=== PATIENT | male | born 1975 | race African-American/Black ===

== ENCOUNTER 2019-09-17 18:15 | IRF | payer BC, SELFPAY ==
--- NOTE | ~2019-09-17 | XR_ITS ---
EXAMINATION: XR barium swallow modified DATE: 09/21/2019 13:43 INDICATION: Dysphagia. TECHNIQUE: The patient was given barium-containing material of multiple consistencies to swallow by rosita tao speech pathologist while I performed fluoroscopy. Dose-area product was 1.438 Gy-cm2. 1.0 minutes fluoroscopy time FINDINGS: Oral Preparatory Stage: Leakage from mouth, delayed swallowing Oral Stage: Delayed retention in the valleculae Pharyngeal Phase: Aspiration with 2 initial trials of small amount of clear thin liquids; examinatio n was terminated. Cervical/Esophageal Stage: No abnormality noted IMPRESSION: Modified esophagram findings as above. Please refer to the speech [facility] report [facility]. Reviewed, dictated and finalized at Location [facility]. Reviewed, dictated and finalized at location A. IMPRESSION: Modified esophagram findings as above. Please refer to the speech t herapy report for specific recommendations.
--- NOTE | ~2019-09-17 | MR_ITS ---
EXAMINATION: MR brain/brain stem wo con EXAM DATE: 09/22/2019 12:10 INDICATION: Stroke. Dysphagia, dysarthria. TECHNIQUE: Magnetic resonance imaging (MRI) of the brain/brain stem obtained without contrast. Sagitt al T1, axial diffusion, gradient echo (T2*), T1, T2, FLAIR sequences obtained. There is no prior st udy for comparison. FINDINGS: There is moderate-sized infarction in the right cerebellar lobe, right brachium pontis and right side of the leo, with some edema, and also small region of enhancement. Overall appearance is most consistent with subacute age. There are approximately a dozen punctate scattered bilateral periventricular white matter foci of res tricted diffusion, likely varying acute to subacute ages from embolic source. There are multiple scattered periventricular and subcortical T2 hyperintensities, a non-specific find ing with differential diagnosis including premature chronic small vessel ischemic disease (especially if the patient has cardiovascular risk factors), migraine headaches, demyelinating disease such as m ultiple sclerosis or acute disseminated encephalomyelitis (ADEM), vasculopathy, lyme's disease or stanley ctive astrocytosis (gliosis) secondary to nonspecific etiology. No brain mass. No obstructive hydrocephalus, extra-axial collections or acute intracranial hemorrhage . Small right maxillary sinus mucous retention cyst. Right-sided Phthisis bulbi. IMPRESSION: 1. Moderate-sized right cerebellar, brachium pontis, leo subacute infarction. 2. Approximately a dozen scattered periventricular acute infarctions likely embolic source. 3. Moderate nonspecific periventricular white matter disease. Reviewed, dictated and finalized at location . IMPRESSION: 1. Moderate-sized right cerebellar, brachium pontis, leo subacute infarction. 2. Approximately a dozen scattered periventricular acute infarctions likely em bolic source. 3. Moderate nonspecific periventricular white matter disease.
--- NOTE | ~2019-09-17 | XR_ITS ---
XR fl Dobhoff insert/rad w img INDICATION: Physician placement of feeding tube TECHNIQUE: Fluoroscopy performed for placement of feeding tube . 0.5 minutes of fluoroscopy. DAP is 6 .3. 1 fluoroscopic image. COMPARISON: No prior studies for comparison. FINDINGS: Feeding feeding tube tip in the stomach following placement by fluoroscopy. Visualized bow el gas pattern is unremarkable. Impression: 1:Feeding tube tip in the stomach. Reviewed, dictated and finalized at location A. Impression: 1:Feeding tube tip in the stomach.
--- NOTE | 2019-09-17 18:19 | PC.NURSE ---
This patient, [place], was admitted to [facility] Room 219-01. Patient/family oriented to hospital policies and general routines including ID bracelet, bed and alarms, visiting hours, pain management, procedures, bathroom and other care routines, personal items, smoking policy, room service/diet, and visiting hours. Valuables list has been completed. Information on how to activate the Rapid Response Team has been discussed. Patient/Family are encouraged to report perceived risks to care and to ask questions if they do not understand what they are told or what they should do.
[2019-09-17 18:20] VITALS: BP 96/67; PULSE 50; RESP 16; TEMP 37.2; O2SAT 96; BMI 38.8
[2019-09-17] MEDS: INSULIN GLARGINE (*BKC) 100 UNITS/ML 24 UNITS SUB-Q (20:50)
[2019-09-17] MEDS: ATORVASTATIN 40 MG TABLET 80 MG PO (20:53)
[2019-09-17 21:13] VITALS: BP 118/72; PULSE 72; RESP 20; TEMP 36.7; O2SAT 98
[2019-09-17 21:23] LABS: Glucose Point of Care 256 (65-105)
[2019-09-18] VITALS (8 sets, daily range): BP systolic 93–152; BP diastolic 53–81; PULSE 50–81; RESP 16–20; TEMP 36.2–37.2; O2SAT 96–100; BMI 38.8
[2019-09-18 04:39] LABS: Basophils Percent Auto 0.3 % (0.2-1.2); Eosinophils Absolute Auto 0.1 K/mm3 (0-0.3); Eosinophils Percent Auto 0.7 % (0-4.4); Hematocrit 48.3 % (42.0-52.0); Hemoglobin 15.6 g/dL (14.0-18.0); Immature Granulocyte Absolute 0.01 K/mm3 (0.00-0.031); Immature Granulocyte Percent A 0.1 % (0-0.5); Lymphocytes Percent Auto 33.3 % (18.3-44.2); Mean Corpuscular HGB Conc 32.3 g/dl (32-36); Mean Corpuscular Hemoglobin 26.5 pg (26-34); Mean Corpuscular Volume 82.1 fl (80-100); Mean Platelet Volume 11.4 fl (7.4-10.4); Monocytes Absolute Auto 0.5 K/mm3 (0.1-0.6); Monocytes Percent Auto 6.8 % (2.6-8.5); Neutrophils Absolute Auto 4.1 K/mm3 (1.3-6.7); Neutrophils Percent Auto 58.8 % (45.5-73.1); Platelet Count Result 198 k/mm3 (150-375); Red Blood Count 5.88 M/mm3 (4.6-6.20); Red Cell Distribution Width 13.2 % (11.5-14.5); White Blood Count 6.9 K/mm3 (4.5-10.0)
[2019-09-18 04:47] LABS: Hemoglobin A1C 12.6 % (<5.7)
[2019-09-18 04:52] LABS: Blood Urea Nitrogen 24 mg/dL (9-20); Calcium 9.3 mg/dL (8.4-10.2); Carbon Dioxide 32 mmol/L (22-30); Chloride 99 mmol/L (98-107); Cholesterol 128 mg/dL (0-200); Estimated CRCL calculation 78 ml/min; Estimated Glomerular Filt Rate > 60; Glucose 171 mg/dL (75-110); HDL Direct 22 mg/dL; Potassium 4.3 mmol/L (3.4-5.0); Sodium 137 mmol/L (137-145); Triglycerides 91 mg/dL (<150)
[2019-09-18 05:02] LABS: LDL Cholesterol Direct 87 mg/dL
[2019-09-18 07:07] LABS: Glucose Point of Care 200 (65-105)
--- NOTE | 2019-09-18 08:00 | WPDREHABHP ---
H&P: HPI History of Present Illness Chief complaint: CVA Narrative: [place] is a 44 year old male HISTORY OF PRESENT ILLNESS: The patient's primary rehab impairment category is acute infarct in the right cerebellar hemisphere and the right dorsal leo The etiologic diagnosis is the above is a due to stroke that is the primary rehab category I saw this patient [id number] on September 18, 2019 at 8:00 a.m. 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 The patient last known. Of well-being was 7:00 p.m.. NIHSS upon arrival was 2 for ataxia and facial droop. CT of the head showed no bleed tPA was not given due to mild non disabling symptoms. Thrombectomy was not considered due to no LV 0. The patient was given aspirin 325 milligram and transferred to [facility]. On arrival to [facility] NIHSS was still 2. CTA showed 70% stenosis of the right internal carotid artery at the level of C3 and the left vertebral artery as well. Neurology was consulted and order an MRI of the brain and cerebral angio. This started on aspirin atorvastatin. MRI revealed acute infarcts in the right cerebellar hemisphere in the PICA territory and punctate focus in the right dorsal leo. Transthoracic echocardiogram showed severe hypertrophic and possibly ischemic cardiomyopathy with FX of chronic severe hypertension. There were no clots of shunts. Ejection fraction was 64%. His hemoglobin A1c was 12.2 and he was started on Lantus 17 use at bedtime. He passes swallowing studies are not regular consistency cardiac diet physical examination confused to reveal impaired gross motor control dysarthria facial droop and impaired balance. The patient will be discharged to us on subcutaneous heparin for DVT prophylaxis. He is alert and oriented x4 as I see it in the chart from the referring hospital the patient is not on subcutaneous heparin but he is on aspirin and Plavix the patient has not traveled outside the [place] or had contact with someone who is ill that has travel outside the [place] in the past 21 days. Patient has not travel to an area of the [place] that is experiencing no transmission of the Coronavirus has not had close personal contact with anyone that has. The patient does not have fever does not have any respiratory symptoms. The patient does not have any fever chills sore throat cough or shortness of breath Therapy was initiated at the acute care facility and the patient transferred to us from [facility] on September 18, 2019 FALLS OR SURGERIES: The patient has had no major surgeries in the 100 days prior to admission. They had falls in the past year. They had falls with injury in the past year. PAST MEDICAL HISTORY: diabetes with peripheral neuropathy, probably diabetic retinopathy responsible for the blindness he may or may not recall traumatic injury but that is for the screening say is but he feels that it was due to stroke most likely related to diabetes hypertension PAST SURGICAL HISTORY: no significant past surgical history SOCIAL HISTORY: patient lives with his well significant other and son in a 1 level home with the level entry he was completely independent and driving prior. Use no assistive device. He has help at home if needed following rehab. He reported no falls within the past 6 months and no major surgery. He is a current every day smoker. Occasional alcohol use. No drug abuse. FAMILY HISTORY: Family history is quite positive for the stroke by many close family members as the patient best recall PRIOR LEVEL OF FUNCTION: Eating was INDEPENDENT Oral Care was INDEPENDENT Toileting Hygiene was INDEPEN
[2019-09-18] MEDS: metFORMIN HCL 500 MG TABLET PO ×2 (09:43→18:24)
[2019-09-18] MEDS: INSULIN ASPART (*BKC) 100 UNITS/ML 6 UNITS SUB-Q (09:43)
[2019-09-18] MEDS: ASPIRIN 81 MG CHEWABLE TABLET PO (10:16)
[2019-09-18] MEDS: CLOPIDOGREL BISULFATE 75 MG TABLET PO (10:17)
[2019-09-18] MEDS: hydroCHLOROthiazide 25 MG TABLET 50 MG PO (10:17)
[2019-09-18] MEDS: carvediloL 25 MG TABLET PO ×2 (10:17→18:22)
[2019-09-18] MEDS: AMLODIPINE BESYLATE 5 MG TABLET 10 MG PO (10:18)
[2019-09-18] MEDS: lisinopriL 20 MG TABLET 40 MG PO (10:19)
[2019-09-18] MEDS: NAPROXEN 500 MG TABLET PO ×2 (12:29→18:24)
[2019-09-18] MEDS: INSULIN ASPART (*BKC) 100 UNITS/ML 8 UNITS SUB-Q ×2 (12:34→18:22)
[2019-09-18 12:40] LABS: Glucose Point of Care 198 (65-105)
--- NOTE | 2019-09-18 16:36 | RPD ---
INDIVIDUALIZED PLAN OF CARE FOR [place] Brief Synthesis of Pre-Admission Screen, Post-Admission Evaluation and Therapy Evaluations: The patient presents to rehab with acute infarcts in the right cerebellar hemisphere and right dorsal leo. Comorbidities include diabetes mellitus with hyperglycemia, uncontrolled hypertension, traumatic injury right eye, tobacco abuse, cardiomyopathy, right facial droop, dysarthria, and gait instability.The patient requires physician services for neurology services, medical oversight, and coordination of care. The patient requires nursing services for frequent neuro checks, anticoagulation therapy, medication management and education, pressure relief and skin care management, monitoring of labs, diabetes management and education, and fall/safety precautions. Deficits include:ADLs, Balance, Endurance, Family Training/Education, Mobility, Pain Management, ROM, Safety, Speech, Strength, and Transfers Social Media Marketer/Case Management for: Discharge Planning and Patient/Family Counseling Physical Therapy: 5 days per week for 75 minutes. Treatments may include: Therapeutic Exercise, Gait Training, Neuromuscular Re-education, Transfer Training, Community Reintegration, Bed Mobility, Patient/Family Education, Wheelchair Mobility Group Therapy/Concurrent Therapy Rationales: -Improve attention span during functional activities in a distracted environment. -Enhance problem solving and/or adequate judgment skills during functional activities in a distracted environment. -Promote increased safety awareness in a distracted environment to reduce fall risk with functional tasks, transfers, and ambulation to allow a more safe, self-sufficient return to the home environment. -Improve dynamic balance skills to promote safety and independence with functional activities in a distracted environment for maximum gain. Occupational Therapy: 5 days per week for 75 minutes. Treatments may include: Therapeutic Exercise, Therapeutic Activity, Cognitive Training, Self-Care Transfer Training, Community Reintegration, Home Management, Patient/Family Education, Wheelchair Mobility Training, Energy Conservation Training Group Therapy/Concurrent Therapy Rationales: -Allow therapist to observe and teach generalization and carry-over of skills learned in individual therapy. -Enhance problem solving and sequencing skills during therapeutic activities in a distracted environment. -Promote increased safety awareness in a realistic setting to reduce fall risk with functional tasks due to visual and verbal distractions. -Increase functional level with ADLs, ADL transfers and use of adaptive equipment through therapeutic activities with others while promoting safety to allow a more safe, self-sufficient return home. Speech Therapy: 5 days per week for 30 minutes. Treatments may include: Dysphasia Therapy, Speech/Language/Communication Therapy, Cognitive Training, Patient/Family Education Group Therapy/Concurrent Therapy - Rationale: -Allow therapist to observe and teach generalization and carry-over of skills learned in individual therapy. -Improve comprehension skills with complex or abstract ideas through discussion in a realistic setting. -Enhance problem solving skills with complex issues during activities in a distracted environment. -Promote increased memory skills and concentration in a distracted environment for a safe transition home. -Improve attention and focus with language/communication skills in a realistic and supportive therapeutic setting. -Allow for practice of expression of basic needs and ideas through functional activities with others. Medical Prognosis: Good Anticipated Length of Stay: 10 days Rehab Goals: Eating Goal: 06-Independent Oral Hygiene Goal: 06-Independent Toileting Hygiene Goal: 06-Independent Shower/Bathe Self Goal: 06-Independent Upper Body Dressing Goal: 06-Independent Lower Body Dressing Goal: 06-Independent Putting O
[2019-09-18 18:12] LABS: Glucose Point of Care 133 (65-105)
[2019-09-18 21:28] LABS: Glucose Point of Care 173 (65-105)
[2019-09-18] MEDS: INSULIN GLARGINE (*BKC) 100 UNITS/ML 24 UNITS SUB-Q (21:30)
[2019-09-18] MEDS: ATORVASTATIN 40 MG TABLET 80 MG PO (21:30)
[2019-09-19 06:00] VITALS: BP 106/61; PULSE 69; RESP 16; TEMP 36.4; O2SAT 99
[2019-09-19 06:48] LABS: Glucose Point of Care 126 (65-105)
[2019-09-19] MEDS: metFORMIN HCL 500 MG TABLET PO ×2 (09:09→17:37)
[2019-09-19] MEDS: NAPROXEN 500 MG TABLET PO ×2 (09:09→17:37)
[2019-09-19] MEDS: AMLODIPINE BESYLATE 5 MG TABLET 10 MG PO (09:09)
[2019-09-19 09:10] VITALS: PULSE 69
[2019-09-19] MEDS: CLOPIDOGREL BISULFATE 75 MG TABLET PO (09:10)
[2019-09-19] MEDS: carvediloL 25 MG TABLET PO ×2 (09:10→17:38)
[2019-09-19] MEDS: lisinopriL 20 MG TABLET 40 MG PO (09:10)
[2019-09-19] MEDS: hydroCHLOROthiazide 25 MG TABLET 50 MG PO (09:10)
[2019-09-19] MEDS: ASPIRIN 81 MG CHEWABLE TABLET PO (09:10)
[2019-09-19] MEDS: INSULIN ASPART (*BKC) 100 UNITS/ML 6 UNITS SUB-Q (09:11)
--- NOTE | 2019-09-19 12:06 | WPDNEURORHBP ---
Subjective Date/time seen: 09/19/19 12:06 Interval history: l this 44-year-old the Afro-Spanish gentleman who is a diabetic hypertensive is here after having had cerebellar and pontine stroke with crossed neurological signs of right-sided facial weakness right-sided cerebellar deficits/ataxia and left-sided khushboo sensory deficit also subtle but present left-sided weakness this morning he was a little groggy and tired as he was unable to sleep last night I do not see and significant change apart from being groggy and sleepy which is due to the fact he was unable to sleep well he denies any headache nausea vomiting chest pain shortness of breath fever chills or sore throat his blood pressures are on the soft side I need to discontinue 1 of his medication and take amlodipine at this point Review of Systems Review of Systems: All systems reviewed & are unremarkable except as noted in HPI and below Functional Status Ambulation Ability Ability to Ambulate 10 Feet: Moderate Assistance X 1 Ambulation Assistive Devices: Walker, Wheeled Transfers Ability Ability to Transfer In/Out of Chair: Moderate Assistance X 1 Exam Const: General: comfortable and no acute distress HENMT: General nose exam: Normal nares present Mouth: Yes moist mucous membranes Eyes: General: appearance normal, both eyes and all related structures Other: right-sided blindness related to his underlying diabetes for quite some time Neck: Neck: supple and no JVD Resp: Effort & Inspection: normal respiratory effort Auscultation: clear to auscultation bilaterally Cardio: Rate: regular rate Rhythm: regular rhythm GI: GI Palp: Yes Soft to palpation Auscultation: normal bowel sounds Skin: General skin exam: normal color and no rashes or lesions noted Neuro: Other: patient is little sleepy and tired little dysarthric however I do not see significant change from his neurological status standpoint still continues to have right-sided facial weakness right-sided cerebellar ataxia and left-sided sensory deficit with evidence of peripheral neuropathy Extrem: General: normal to inspection Psych: Mental Status: mental status grossly normal Objective Data Vital Signs Vital Signs: Vital Signs - 24 hr 09/18/19 14:00 09/18/19 18:22 09/18/19 21:01 Temperature 36.2 C L 36.3 C L Pulse Rate 74 72 70 Respiratory Rate 18 20 Blood Pressure 98/66 L 93/53 L Pulse Oximetry 100 98 09/19/19 06:00 09/19/19 09:10 Temperature 36.4 C L Pulse Rate 69 69 Respiratory Rate 16 Blood Pressure 106/61 Pulse Oximetry 99 Intake/Output Intake/Output: Intake & Output 09/16/19 09/17/19 09/18/19 09/19/19 23:59 23:59 23:59 23:59 Intake Total 840 240 Balance 840 240 Meds/Results Medications: Active Medications Generic Name Dose Route Start Last Admin Trade Name Freq PRN Reason Stop Dose Admin Amlodipine Besylate 10 mg 09/18/19 09:00 09/19/19 09:09 Norvasc PO 10 mg DAILY ELI Administration Aspirin 81 mg 09/18/19 09:00 09/19/19 09:10 Aspirin Chewable PO 81 mg DAILY ELI Administration Atorvastatin Calcium 80 mg 09/17/19 21:00 09/18/19 21:30 Lipitor PO 80 mg HS ELI Administration Carvedilol 25 mg 09/18/19 09:00 09/19/19 09:10 Coreg PO 25 mg BID ELI Administration Clopidogrel Bisulfate 75 mg 09/18/19 09:00 09/19/19 09:10 Plavix PO 75 mg DAILY ELI Administration Cyclobenzaprine HCl 10 mg 09/17/19 18:46 Flexeril PO TID PRN Muscle Spasm Dextrose 12.5 gm 09/17/19 18:48 Dextrose 50% Syringe IV PUSH PRN PRN Hypoglycemia Protocol Glucagon 1 mg 09/17/19 18:48 Glucagon For Inj IM PRN PRN Hypoglycemia Protocol Glucose 15 gm 09/17/19 18:48 Glutose 15 PO PRN PRN Hypoglycemia Protocol Hydrochlorothiazide 50 mg 09/18/19 09:00 09/19/19 09:10 Hydrochlorothiazide PO 50 mg DAILY ELI Administration Dextrose 1,000 mls @ 1
[2019-09-19 12:13] LABS: Glucose Point of Care 136 (65-105)
[2019-09-19 14:00] VITALS: BP 95/57; PULSE 69; RESP 18; TEMP 36.1; O2SAT 100
[2019-09-19 17:12] LABS: Glucose Point of Care 142 (65-105)
[2019-09-19 17:38] VITALS: PULSE 69
[2019-09-19 21:20] LABS: Glucose Point of Care 124 (65-105)
[2019-09-19] MEDS: ATORVASTATIN 40 MG TABLET 80 MG PO (21:45)
[2019-09-19] MEDS: INSULIN GLARGINE (*BKC) 100 UNITS/ML 24 UNITS SUB-Q (21:45)
[2019-09-19 22:00] VITALS: BP 123/70; PULSE 62; RESP 18; TEMP 36.1; O2SAT 94
[2019-09-20 06:00] VITALS: BP 106/59; PULSE 76; RESP 18; TEMP 36.4; O2SAT 97
[2019-09-20 06:51] LABS: Glucose Point of Care 94 (65-105)
--- NOTE | 2019-09-20 08:03 | PC.NURSE ---
Dr Suarez notified of xray results done 09/18. Message left at office with Carmela.
[2019-09-20] MEDS: metFORMIN HCL 500 MG TABLET PO ×2 (10:29→18:21)
[2019-09-20 10:30] VITALS: PULSE 76
[2019-09-20] MEDS: carvediloL 25 MG TABLET PO ×2 (10:30→18:21)
[2019-09-20] MEDS: ASPIRIN 81 MG CHEWABLE TABLET PO (10:30)
[2019-09-20] MEDS: NAPROXEN 500 MG TABLET PO ×2 (10:30→18:22)
[2019-09-20] MEDS: lisinopriL 20 MG TABLET 40 MG PO (10:30)
[2019-09-20] MEDS: CLOPIDOGREL BISULFATE 75 MG TABLET PO (10:30)
[2019-09-20] MEDS: hydroCHLOROthiazide 25 MG TABLET 50 MG PO (10:30)
--- NOTE | 2019-09-20 11:11 | WPDNEURORHBP ---
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 is here post stroke at the brainstem level with the right-sided facial weakness right-sided cerebellar ataxia and left-sided sensory much more so than the motor weakness he is more alert today and denies any headache nausea vomiting chest pain shortness of breath engage in therapy better than yesterday Review of Systems Review of Systems: All systems reviewed & are unremarkable except as noted in HPI and below Functional Status Ambulation Ability Ability to Ambulate 10 Feet: Moderate Assistance X 1 Ambulation Assistive Devices: Walker, Wheeled Transfers Ability Ability to Transfer In/Out of Chair: Moderate Assistance X 1 Exam Const: General: comfortable and no acute distress HENMT: General nose exam: Normal nares present Mouth: Yes moist mucous membranes Eyes: General: appearance normal, both eyes and all related structures Other: right-sided blindness and corneal opacity for long duration of time related to diabetic retinopathy Neck: Neck: supple and no JVD Resp: Effort & Inspection: normal respiratory effort Auscultation: clear to auscultation bilaterally Cardio: Rate: regular rate Rhythm: regular rhythm GI: GI Palp: Yes Soft to palpation Auscultation: normal bowel sounds Skin: General skin exam: normal color and no rashes or lesions noted Neuro: Other: patient is a relatively more alert today not any distress neurological signs are improving slowly no worsening for sure Extrem: General: normal to inspection Psych: Mental Status: mental status grossly normal Objective Data Vital Signs Vital Signs: Vital Signs - 24 hr 09/19/19 14:00 09/19/19 17:38 09/19/19 22:00 Temperature 36.1 C L 36.1 C L Pulse Rate 69 69 62 Respiratory Rate 18 18 Blood Pressure 95/57 L 123/70 Pulse Oximetry 100 94 09/20/19 06:00 09/20/19 10:30 Temperature 36.4 C Pulse Rate 76 76 Respiratory Rate 18 Blood Pressure 106/59 L Pulse Oximetry 97 Intake/Output Intake/Output: Intake & Output 09/17/19 09/18/19 09/19/19 09/20/19 23:59 23:59 23:59 23:59 Intake Total 840 600 120 Balance 840 600 120 Meds/Results Medications: Active Medications Generic Name Dose Route Start Last Admin Trade Name Freq PRN Reason Stop Dose Admin Aspirin 81 mg 09/18/19 09:00 09/20/19 10:30 Aspirin Chewable PO 81 mg DAILY ELI Administration Atorvastatin Calcium 80 mg 09/17/19 21:00 09/19/19 21:45 Lipitor PO 80 mg HS ELI Administration Carvedilol 25 mg 09/18/19 09:00 09/20/19 10:30 Coreg PO 25 mg BID ELI Administration Clopidogrel Bisulfate 75 mg 09/18/19 09:00 09/20/19 10:30 Plavix PO 75 mg DAILY ELI Administration Cyclobenzaprine HCl 10 mg 09/17/19 18:46 Flexeril PO TID PRN Muscle Spasm Dextrose 12.5 gm 09/17/19 18:48 Dextrose 50% Syringe IV PUSH PRN PRN Hypoglycemia Protocol Glucagon 1 mg 09/17/19 18:48 Glucagon For Inj IM PRN PRN Hypoglycemia Protocol Glucose 15 gm 09/17/19 18:48 Glutose 15 PO PRN PRN Hypoglycemia Protocol Hydrochlorothiazide 50 mg 09/18/19 09:00 09/20/19 10:30 Hydrochlorothiazide PO 50 mg DAILY ELI Administration Dextrose 1,000 mls @ 100 mls/hr 09/17/19 18:48 Dextrose 5% 1,000 Ml IVPB PRN PRN Hypoglycemia Protocol Insulin Aspart 6 units 09/18/19 08:00 09/20/19 10:29 Novolog SUB-Q Not Given 0800 [facility] Insulin Aspart 8 units 09/18/19 12:00 09/19/19 21:23 Novolog SUB-Q Not Given 1200,1700 [facility] Insulin Glargine 24 units 09/17/19 21:00 09/19/19 21:45 Lantus SUB-Q 24 units HS ELI Administration Lisinopril 40 mg 09/18/19 09:00 09/20/19 10:30 Prinivil PO 40 mg DAILY ELI Administration Metformin HCl 500 mg 09/18/19 08:00 09/20/19 10:29 Glucophage PO 500 mg BIDWM ELI Administration Napr
[2019-09-20 13:42] LABS: Glucose Point of Care 88 (65-105)
[2019-09-20 14:00] VITALS: BP 119/70; PULSE 70; RESP 20; TEMP 36.4; O2SAT 98
[2019-09-20 17:00] LABS: Glucose Point of Care 118 (65-105)
[2019-09-20 18:21] VITALS: PULSE 70
--- NOTE | 2019-09-20 18:28 | PC.NURSE ---
Switched diet to minced and moist. Had spoke to speech earlier and was going to speak to him about it. Having a lot of trouble eating due to his severe facial/mouth droop with regular consistencies. He has ate very little today and held his insulins as well due to 80's-116. Dr. Cam notified. Patient very aware and frustrated and was OK with diet change. Will continue to monitor.
[2019-09-20] MEDS: ATORVASTATIN 40 MG TABLET 80 MG PO (20:04)
[2019-09-20 21:56] LABS: Glucose Point of Care 113 (65-105)
[2019-09-20 22:00] VITALS: BP 108/65; PULSE 73; RESP 18; TEMP 36.3; O2SAT 90
[2019-09-21 06:00] VITALS: BP 118/60; PULSE 69; RESP 18; TEMP 36.6; O2SAT 98
[2019-09-21 07:04] LABS: Glucose Point of Care 92 (65-105)
[2019-09-21 08:00] VITALS: PULSE 69; RESP 18; O2SAT 98
[2019-09-21] MEDS: metFORMIN HCL 500 MG TABLET PO (08:30)
[2019-09-21] MEDS: lisinopriL 20 MG TABLET 40 MG PO (08:31)
[2019-09-21] MEDS: NAPROXEN 500 MG TABLET PO (08:31)
[2019-09-21] MEDS: hydroCHLOROthiazide 25 MG TABLET 50 MG PO (08:31)
[2019-09-21] MEDS: ASPIRIN 81 MG CHEWABLE TABLET PO (08:31)
[2019-09-21] MEDS: CLOPIDOGREL BISULFATE 75 MG TABLET PO (08:31)
[2019-09-21] MEDS: carvediloL 25 MG TABLET PO (10:46)
[2019-09-21 11:07] LABS: Glucose Point of Care 113 (65-105)
[2019-09-21 14:00] VITALS: BP 119/60; PULSE 70; RESP 18; TEMP 36.3; O2SAT 98
--- NOTE | 2019-09-21 14:11 | WPDNEURORHBP ---
Subjective Date/time seen: 09/21/19 14:11 Interval history: patient seems to be depressed and upset and has difficulty swallowing he is here after having had the brainstem stroke with crossed neurological signs is going to have a modified barium swallow to make sure that he is not aspirating he will need some antidepressant at this point he denies any headache nausea vomiting chest pain shortness of breath fever chills sore throat and remains awake and alert Review of Systems Review of Systems: All systems reviewed & are unremarkable except as noted in HPI and below Functional Status Ambulation Ability Ability to Ambulate 10 Feet: Minimum Assistance X 1 Ability to Ambulate 50 Feet With 2 Turns: Minimum Assistance X 1 Ambulation Assistive Devices: Walker, Wheeled Transfers Ability Ability to Transfer In/Out of Chair: Minimum Assistance X 1 Exam Const: General: comfortable and no acute distress HENMT: General nose exam: Normal nares present Mouth: Yes moist mucous membranes Eyes: General: appearance normal, both eyes and all related structures Neck: Neck: supple and no JVD Resp: Effort & Inspection: normal respiratory effort Auscultation: clear to auscultation bilaterally Cardio: Rate: regular rate Rhythm: regular rhythm GI: GI Palp: Yes Soft to palpation Auscultation: normal bowel sounds Skin: General skin exam: normal color and no rashes or lesions noted Neuro: Other: he is awake and alert will oriented time place person seems to be depressed does have right-sided facial weakness and moderately severe left-sided hemiparesis Extrem: General: normal to inspection Psych: Other: apart from depressed and also frustrated the patient's overall mental status is within the normal range Objective Data Vital Signs Vital Signs: Vital Signs - 24 hr 09/20/19 18:21 09/20/19 22:00 09/21/19 06:00 Temperature 36.3 C L 36.6 C Pulse Rate 70 73 69 Respiratory Rate 18 18 Blood Pressure 108/65 118/60 Pulse Oximetry 90 98 09/21/19 08:00 Temperature Pulse Rate 69 Respiratory Rate 18 Blood Pressure Pulse Oximetry 98 Intake/Output Intake/Output: Intake & Output 09/18/19 09/19/19 09/20/19 09/21/19 23:59 23:59 23:59 23:59 Intake Total 840 600 600 240 Balance 840 600 600 240 Meds/Results Medications: Active Medications Generic Name Dose Route Start Last Admin Trade Name Freq PRN Reason Stop Dose Admin Aspirin 81 mg 09/18/19 09:00 09/21/19 08:31 Aspirin Chewable PO 81 mg DAILY ELI Administration Atorvastatin Calcium 80 mg 09/17/19 21:00 09/20/19 20:04 Lipitor PO 80 mg HS ELI Administration Carvedilol 25 mg 09/18/19 09:00 09/21/19 10:46 Coreg PO 25 mg BID ELI Administration Clopidogrel Bisulfate 75 mg 09/18/19 09:00 09/21/19 08:31 Plavix PO 75 mg DAILY ELI Administration Cyclobenzaprine HCl 10 mg 09/17/19 18:46 Flexeril PO TID PRN Muscle Spasm Dextrose 12.5 gm 09/17/19 18:48 Dextrose 50% Syringe IV PUSH PRN PRN Hypoglycemia Protocol Glucagon 1 mg 09/17/19 18:48 Glucagon For Inj IM PRN PRN Hypoglycemia Protocol Glucose 15 gm 09/17/19 18:48 Glutose 15 PO PRN PRN Hypoglycemia Protocol Hydrochlorothiazide 50 mg 09/18/19 09:00 09/21/19 08:31 Hydrochlorothiazide PO 50 mg DAILY ELI Administration Dextrose 1,000 mls @ 100 mls/hr 09/17/19 18:48 Dextrose 5% 1,000 Ml IVPB PRN PRN Hypoglycemia Protocol Insulin Aspart 6 units 09/18/19 08:00 09/21/19 08:27 Novolog SUB-Q Not Given 0800 [facility] Insulin Aspart 8 units 09/18/19 12:00 09/21/19 13:39 Novolog SUB-Q Not Given 1200,1700 [facility] Insulin Glargine 24 units 09/17/19 21:00 09/20/19 20:08 Lantus SUB-Q Not Given HS [facility] Lisinopril 40 mg 09/18/19 09:00 09/21/19 08:31 Prinivil PO 40 mg DAILY ELI Administration Metformin HCl 500 mg 09/18/19 08:00 08
[2019-09-21 17:43] LABS: Glucose Point of Care 141 (65-105)
[2019-09-21 21:38] LABS: Glucose Point of Care 102 (65-105)
[2019-09-21 22:00] VITALS: BP 135/73; PULSE 76; RESP 18; TEMP 36.3; O2SAT 95
--- NOTE | 2019-09-22 | ECG_ITS ---
Holter/Event Monitor Holter/Event Monitor Date of procedure: 09/25/19 Procedure Type: 24 hour Holter monitor Diagnosis: Multiple bilateral strokes, probably cardioembolic, rule out paroxysmalAFib Indications: Multiple bilateral strokes Image/Tracing Quality: good Finding: The patient was monitored for 48 hours. The underlying rhythm was sinus with a minimum heart rate of 56 beats per minute, average heart of 75 beats per minute and maximum heart rate 100 beats per minute. There were 5 PVCs and 26 APCs with one 6 beat run of SVT. No atrial fibrillation, ventricular tachycardia, or AV block was seen. No symptoms were recorded. . Conclusion: Unremarkable Holter monitor. Rare APCs and PVCs, 6 beat run of SVT. No atrial fibrillation Report Initialized date/time: Victoria Holder MD 09/25/191408 Electronically signed by: Victoria Holder MD 09/25/191408 [facility]
[2019-09-22 06:00] VITALS: BP 130/84; PULSE 79; RESP 18; TEMP 36.3; O2SAT 97
[2019-09-22 06:51] LABS: Glucose Point of Care 109 (65-105)
[2019-09-22 09:32] VITALS: PULSE 79
[2019-09-22] MEDS: ASPIRIN 81 MG CHEWABLE TABLET PO (09:32)
[2019-09-22] MEDS: CLOPIDOGREL BISULFATE 75 MG TABLET PO (09:32)
[2019-09-22] MEDS: hydroCHLOROthiazide 25 MG TABLET 50 MG PO (09:32)
[2019-09-22] MEDS: lisinopriL 20 MG TABLET 40 MG PO (09:32)
[2019-09-22] MEDS: NAPROXEN 500 MG TABLET PO ×2 (09:32→18:38)
[2019-09-22] MEDS: carvediloL 25 MG TABLET PO ×2 (09:32→18:36)
--- NOTE | 2019-09-22 11:27 | WPDNEURORHBP ---
Subjective Date/time seen: 09/22/19 11:27 Brainstem stroke with MRI planned today also depression on treatment Review of Systems Review of Systems: All systems reviewed & are unremarkable except as noted in HPI and below Functional Status Ambulation Ability Ability to Ambulate 10 Feet: Minimum Assistance X 1 Ability to Ambulate 50 Feet With 2 Turns: Minimum Assistance X 1 Ambulation Assistive Devices: Walker, Wheeled Transfers Ability Ability to Transfer In/Out of Chair: Minimum Assistance X 1 Exam Const: General: no acute distress, alert, awake and anxious Nutritional Appearance: average body habitus Orientation/consciousness: patient oriented x3 Limitations: no limitations Eyes: General: appearance normal, both eyes and all related structures Neck: Neck: normal visual inspection, full ROM and no lymphadenopathy Resp: Effort & Inspection: normal respiratory effort Auscultation: clear to auscultation bilaterally Cardio: Rate: regular rate Rhythm: regular rhythm GI: Auscultation: normal bowel sounds Skin: General skin exam: no rashes or lesions noted Neuro: General: patient oriented x3 Cranial nerves: Yes facial symmetry Cognition (Neuro): normal cognition Motor exam (neuro): Abnormal motor strength present (left hemiparesis) Deep tendon reflexes (DTR's): Right triceps reflex intensity grade: 1+, Left triceps reflex intensity grade: 2+, Rt Biceps (C5, C6): 1+, Left biceps reflex intensity grade: 2+, Right brachioradialis reflex intensity grade: 1+, Left brachioradialis reflex intensity grade: 2+, Right patellar reflex intensity grade: 1+, Left patellar reflex intensity grade: 2+, Right ankle reflex intensity grade: 1+ and Left ankle reflex intensity grade: 2+ Plantar Reflex Responses: downgoing: right and upgoing (positive Babinski): left Psych: Affect: Depressed mood present and Irritable affect present Thought content: Yes Normal thought content present Judgement: Fair judgement present (Psych) Objective Data Vital Signs Vital Signs: Vital Signs - 24 hr 09/21/19 14:00 09/21/19 22:00 09/22/19 06:00 Temperature 36.3 C L 36.3 C L 36.3 C L Pulse Rate 70 76 79 Respiratory Rate 18 18 18 Blood Pressure 119/60 135/73 130/84 Pulse Oximetry 98 95 97 09/22/19 09:32 Temperature Pulse Rate 79 Respiratory Rate Blood Pressure Pulse Oximetry Intake/Output Intake/Output: Intake & Output 09/19/19 09/20/19 09/21/19 09/22/19 23:59 23:59 23:59 23:59 Intake Total 600 600 360 Balance 600 600 360 Meds/Results Medications: Active Medications Generic Name Dose Route Start Last Admin Trade Name Freq PRN Reason Stop Dose Admin Aspirin 81 mg 09/18/19 09:00 09/22/19 09:32 Aspirin Chewable PO 81 mg DAILY [facility] Administration Atorvastatin Calcium 80 mg 09/17/19 21:00 09/21/19 20:20 Lipitor PO Not Given HS ELI Carvedilol 25 mg 09/18/19 09:00 09/22/19 09:32 Coreg PO 25 mg BID [facility] Administration Clopidogrel Bisulfate 75 mg 09/18/19 09:00 09/22/19 09:32 Plavix PO 75 mg DAILY [facility] Administration Cyclobenzaprine HCl 10 mg 09/17/19 18:46 Flexeril PO TID PRN Muscle Spasm Dextrose 12.5 gm 09/17/19 18:48 Dextrose 50% Syringe IV PUSH PRN PRN Hypoglycemia Protocol Glucagon 1 mg 09/17/19 18:48 Glucagon For Inj IM PRN PRN Hypoglycemia Protocol Glucose 15 gm 09/17/19 18:48 Glutose 15 PO PRN PRN Hypoglycemia Protocol Hydrochlorothiazide 50 mg 09/18/19 09:00 09/22/19 09:32 Hydrochlorothiazide PO 50 mg DAILY ELI Administration Dextrose 1,000 mls @ 100 mls/hr 09/17/19 18:48 Dextrose 5% 1,000 Ml IVPB PRN PRN Hypoglycemia Protocol Insulin Aspart 6 units 09/18/19 08:00 09/22/19 09:30 Novolog SUB-Q Not Given 0800 [facility] Insulin Aspart 8 units 09/18/19 12:00 09/21/19 17:22 Novolog SUB-Q Not Given 1200,1700 [facility] Insulin Glargine 24 units
[2019-09-22 12:25] LABS: Glucose Point of Care 100 (65-105)
[2019-09-22 14:00] VITALS: BP 135/79; PULSE 73; RESP 18; TEMP 36.3; O2SAT 98
--- NOTE | 2019-09-22 14:37 | ECG_ITS ---
Measurements Intervals [place] Rate: 76 P: 45 CO: 172 QRS: 14 QRSD: 106 T: -18 QT: 370 QTc: 418 Interpretive Statements SINUS RHYTHM BORDERLINE R WAVE PROGRESSION, ANTERIOR LEADS BORDERLINE ST-T WAVE ABNORMALITY- INFERIOR LEADS BASELINE ARTIFACT- V5 BORDERLINE ECG Electronically Signed On 09-22-2019 16:07:14 CDT by William Atkinson D.O.
[2019-09-22 17:14] LABS: Glucose Point of Care 111 (65-105)
--- NOTE | 2019-09-22 17:22 | PC.NURSE ---
MRI completed and Dr. Landers looked at and asked for me to go over with Dr. Cam. Spoke with him regarding results and he asked for STAT EKG, cardiology consult and Holter monitor if possible. Called house visitor [place] and he reached cardiology and they came right away. Monitor placed and Dr. Cam called with results of EKG, and he will wait until tomorrow to decide on additional anticoagulation, and ordered Q6 hour neuro checks.
--- NOTE | 2019-09-22 17:28 | PC.NURSE ---
Spoke with Dr. Landers about patients blood sugars: they have been WNL all day, 102 this morning, 100 at noon, and 111 at dinner. Tube feedings of Glucerna started as soon as therapy was done around 2pm at 30 mls. He appears to be tolerating well. He normally receives 8 units of novolog with meals but held all day per Dr. Landers.
--- NOTE | 2019-09-22 18:12 | WPDCN ---
Assessment and Plan Assessment and plan (1) Stroke: Code(s): I63.9 - Cerebral infarction, unspecified Status: Acute Assessment and Plan: Patient presented to [facility] in August with 3 strokes. He has had further trouble swallowing and MRI today shows multiple new bilateral small strokes of concern for cardiac emboli. (the differential also acute includes other issues, see MRI report). He does have hypertension, and unilateral carotid disease, but this does not account for his bilateral strokes. No shunt was noted by transthoracic echo bubble study but this can be missed; this patient is a large gentleman and imaging was likely suboptimal. No AFib apparently was noted at [facility], but if he has paroxysmal AFib it may be easily missed. A Holter monitor was applied, but we will not get results of that for several days. I think he needs further monitoring to rule out atrial fibrillation, and a STEPHON to evaluate for cardiac source of emboli. He needs evaluation for vasculitis as well. He appears to have failed therapy with aspirin and Plavix. With that in mind, while performing further evaluation, I think it would be reasonable to start a heparin drip and perhaps continue Plavix. has indicated to the nurses said he would be okay with anticoagulation. Check sed rate, blood cultures, though SBE seems unlikely. I have contacted [facility] regarding transfer to a medical floor with telemetry, who will discuss this with Dr. Reno. (2) Hypertension: Code(s): I10 - Essential (primary) hypertension Status: Acute Assessment and Plan: Blood pressure up and down, will need to try to avoid hypotension. (3) Carotid disease, bilateral: Code(s): I77.9 - Disorder of arteries and arterioles, unspecified Status: Acute Assessment and Plan: 70% right carotid stenosis. Takes aspirin, Plavix and a statin now. (4) Diabetes mellitus with neuropathy: Code(s): E11.40 - Type 2 diabetes mellitus with diabetic neuropathy, unspecified Status: Acute HPI Data of Consult Date/Time: 09/22/19 18:12 Requesting Physician: Kyle Landers MD Primary Care Provider: Adan HugoMD Consult Narrative Narrative: Date of service: 09/22/2019 [place] is a 44 year old male whom I was asked to see at the request of Dr. Cam. The initial consult read ?for hypotension? but on further discussion with the nurses it appears that the patient has had some progressive neurologic problems. His MRI today showed 3 subacute strokes, and ?approximately a dozen scattered periventricular acute infarctions likely embolic source.? The patient a stroke on September 10, evaluated same lesion of her stay and transferred to [facility] on September 16. He has had terrible difficulties with swallowing, and failed a swallow study. A Dobbhoff was placed today. A repeat MRI showed the previously seen infarctions of the right cerebellum, brachium pontis and upon subacute infarctions but also a dozen scattered periventricular white matter infarctions likely cardioembolic. Dr. Cam was concerned he might have atrial fibrillation and if he may need anticoagulation. A Holter monitor was applied, but of course those results will be available for several days. The patient presented with his stroke on September 10, with a right facial droop and gait instability, and eventually was transferred to [facility]. No tPA was given due to non disabling symptoms Penilla was treated with aspirin and Plavix. MRI showed acute infarcts the right cerebellar hemisphere, a small focus in the right dorsal leo and a small acute infarct in the right dickens radiata. Echo showed severe hypertrophic And possibly ischemic cardiomyopathy, EF 64%, severe LVH (posterior wall 2.2 cm, septum 2.1 cm, diastolic dysfunction, hypokinesis of the basal inferoseptal and inferolateral rose, no shunt by bubble study. Carotid ul
[2019-09-22 18:36] VITALS: PULSE 73
[2019-09-22] MEDS: ATORVASTATIN 40 MG TABLET 80 MG PO (20:39)
[2019-09-22 20:54] LABS: Basophils Percent Auto 0.5 % (0.2-1.2); Eosinophils Absolute Auto 0.1 K/mm3 (0-0.3); Eosinophils Percent Auto 0.8 % (0-4.4); Hematocrit 48.3 % (42.0-52.0); Hemoglobin 15.3 g/dL (14.0-18.0); Immature Granulocyte Absolute 0.01 K/mm3 (0.00-0.031); Immature Granulocyte Percent A 0.2 % (0-0.5); Lymphocytes Absolute Auto 2.18 K/mm3 (0.9-3.2); Lymphocytes Percent Auto 34.1 % (18.3-44.2); Mean Corpuscular HGB Conc 31.7 g/dl (32-36); Mean Corpuscular Hemoglobin 26.2 pg (26-34); Mean Corpuscular Volume 82.8 fl (80-100); Mean Platelet Volume 11.4 fl (7.4-10.4); Monocytes Absolute Auto 0.6 K/mm3 (0.1-0.6); Monocytes Percent Auto 9.2 % (2.6-8.5); Neutrophils Absolute Auto 3.5 K/mm3 (1.3-6.7); Neutrophils Percent Auto 55.2 % (45.5-73.1); Platelet Count Result 216 k/mm3 (150-375); Red Blood Count 5.83 M/mm3 (4.6-6.20); Red Cell Distribution Width 13.3 % (11.5-14.5); White Blood Count 6.4 K/mm3 (4.5-10.0)
[2019-09-22 21:09] LABS: Blood Urea Nitrogen 52 mg/dL (9-20); Carbon Dioxide 31 mmol/L (22-30); Chloride 100 mmol/L (98-107); Estimated CRCL calculation 54 ml/min; Estimated Glomerular Filt Rate 47; Glucose 115 mg/dL (75-110); Potassium 4.3 mmol/L (3.4-5.0); Sodium 137 mmol/L (137-145)
--- NOTE | 2019-09-22 21:16 | PC.NURSE ---
no distress or c/o, kari ng fdg at 30cc/hr, increasing to 40cc/hr, blood work ordered per dr snider, hospitalist to see pt, accucheck 109, nursing supervisor powder and [employer] aware of condition, sister dmitry called, info given and will update as needed with pt request, he is difficult to understand at times due to cva and ng placement
[2019-09-22 21:18] LABS: Glucose Point of Care 109 (65-105)
[2019-09-22 21:21] LABS: Erythrocyte Sedimentation Rate 15 mm/hr (0-20)
[2019-09-22 22:00] VITALS: BP 117/74; PULSE 76; RESP 18; TEMP 36.3; O2SAT 98
--- NOTE | 2019-09-22 23:29 | PC.NURSE ---
asleep, kari increase in tube feeding,
--- NOTE | 2019-09-23 05:41 | PC.NURSE ---
dr maier here, talked to dr rajput per phone- orders per dr rajput to dc and transfer to imu, will notify sister in morning, house shorer aware for bed arrangements
--- NOTE | 2019-09-23 05:48 | PM.IMHP ---
H&P: HPI History of Present Illness Chief complaint: CVA Narrative: This is a 44 year old diabetic who is known to recently have suffered 3 strokes in August and currently on our rehab unit. The patient underwent a MRI of his brain as he had worsening swallowing difficulties which demonstrated multiple new bilateral small strokes. The patient is currently receiving plavix and aspirin therapy and has a Dobhoff feeding tube in place. Cardiology was consulted yesterday and has evaluated the patient. We were originally consulted by Cardiology to evaluate the patient. Nursing staff has alerted me that the patient has had decreased responsiveness today and sounds gurgly . On my encounter with the patient this morning he is following my commands and has an obvious left sided upper/lower extremity weakness. He denies any pain but tells me he feels horrible. He has slurred speech which the nursing staff tells me is his new baseline. No other further significant history is obtainable from him at this time. Review of Systems Review of Systems: ROS unobtainable: Yes unobtainable due to medical condition PMFSH Past Medical History Medical History Blindness Carotid disease, bilateral Diabetes mellitus with neuropathy Hypertension Family History Family History Father Cerebrovascular accident Mother Diabetes mellitus Other Congestive heart failure Social History Social History Social History: Previously worked in [employer]. Has a girlfriend and 2 children who are mostly grown. Smoking status: Former smoker Alcohol intake: current Drinks per week: 1 Substance use: never Gender identity (if verbalized by the patient): Male Spiritual care concerns: No Agree to blood products: Yes Comments Past surgical history is unobtainable from the patient at this time. Meds Home Medications and Allergies Home Medications Medication Instructions Recorded Confirmed Type amlodipine 10 mg PO DAILY 09/17/19 09/17/19 History aspirin [Aspirin Childrens] 81 mg PO DAILY 09/17/19 09/17/19 History atorvastatin 80 mg PO HS 09/17/19 09/17/19 History carvedilol 25 mg PO BID 09/17/19 09/17/19 History clopidogrel [Plavix] 75 mg PO DAILY 09/17/19 09/17/19 History cyclobenzaprine 10 mg PO TID PRN 09/17/19 09/17/19 History hydrochlorothiazide 50 mg PO DAILY 09/17/19 09/17/19 History lisinopril 40 mg PO DAILY 09/17/19 09/17/19 History metformin 500 mg PO BID 09/17/19 09/17/19 History naproxen 500 mg PO BID 09/17/19 09/17/19 History Allergies Allergy/AdvReac Type Severity Reaction Status Date / Time No Known Allergies Allergy Verified 09/17/19 19:49 Vital Signs Vital Signs - 24 hr 09/22/19 06:00 09/22/19 09:32 09/22/19 14:00 Temperature 36.3 C L 36.3 C L Pulse Rate 79 79 73 Respiratory Rate 18 18 Blood Pressure 130/84 135/79 Pulse Oximetry 97 98 09/22/19 18:36 09/22/19 22:00 Temperature 36.3 C L Pulse Rate 73 76 Respiratory Rate 18 Blood Pressure 117/74 Pulse Oximetry 98 Exam Const: General: alert, awake, acute distress mild, ill appearing acutely and tired appearing Nutritional Appearance: obese morbidly obese Orientation/consciousness: oriented to person HENMT: Head: normal to inspection General nose exam: Normal external nose present Face and sinus: other (Left sided facial droop++ ) Mouth: Yes Normal oral and palatal mucosa present and Yes oropharynx normal Eyes: Pupils: Equal, round and reactive pupils present (Left pupil is reactive to light++ ) and Other pupil findings (Right eye - opacification) Neck: Neck: supple and no JVD Thyroid: thyroid normal Lymphatic: lymphadenopathy not noted Resp: Effort & Inspection: normal respiratory effort Auscultation: other (Course breath sounds b/l++ ) Cardio: Rate:
--- NOTE | 2019-09-23 15:04 | PM.TDS ---
Transfer Discharge Sum: Prov Provider Date of admission: 09/17/19 18:15 Primary care physician: Adan Hugo, Admitting clinician: Kyle Landers MD Consults: 09/22/19 Consult to Physician Routine Comment: Consulting Provider: Thuan Cruz call center manager/MD group to consult: DR. Reno I spoke w/ TANGELA Gar, who will speak with Dr. Reno. Reason for consultation: Consider transfer to [facility] for further monitoring, heparin drip. Has provider been notified: Yes Consult to Physician Routine Comment: Consulting Provider: Victoria Holder Reason for consultation: s/p stroke, orthostatic hypotension Has provider been notified: Yes DS: Admitting Diagnosis Admitting Diagnosis Admitting Diagnosis: Cerebral infarction due to unspecified occlusion or stenosis of unspecified cerebral artery DS: Discharge Diagnosis Discharge Diagnosis (1) Left ventricular hypertrophy: Code(s): I51.7 - Cardiomegaly Status: Acute (2) Aspiration pneumonitis: Code(s): J69.0 - Pneumonitis due to inhalation of food and vomit Status: Acute (3) DVT prophylaxis: Code(s): Z29.9 - Encounter for prophylactic measures, unspecified Status: Acute (4) Acute renal failure: Qualifiers: Acute renal failure type: unspecified Qualified Code(s): N17.9 - Acute kidney failure, unspecified Code(s): N17.9 - Acute kidney failure, unspecified Status: Acute (5) Dysphagia: Qualifiers: Dysphagia type: unspecified Qualified Code(s): R13.10 - Dysphagia, unspecified Code(s): R13.10 - Dysphagia, unspecified Status: Acute (6) Embolic stroke: Qualifiers: Laterality of affected vessel: bilateral Code(s): I63.9 - Cerebral infarction, unspecified Status: Acute (7) Carotid disease, bilateral: Qualifiers: Carotid artery disease type: occlusion Qualified Code(s): I65.23 - Occlusion and stenosis of bilateral carotid arteries Code(s): I77.9 - Disorder of arteries and arterioles, unspecified Status: Acute (8) Hypertension: Qualifiers: Hypertension type: unspecified Qualified Code(s): I10 - Essential (primary) hypertension Code(s): I10 - Essential (primary) hypertension Status: Acute (9) Blindness: Qualifiers: Left eye visual impairment category: left - normal vision Right eye visual impairment category: right - unspecified blindness Qualified Code(s): H54.40 - Blindness, one eye, unspecified eye Code(s): H54.7 - Unspecified visual loss Status: Acute (10) Diabetes mellitus with neuropathy: Qualifiers: Diabetes mellitus motorcycle delivery driver insulin use: without motorcycle delivery driver use Diabetes mellitus type: type 2 Qualified Code(s): E11.40 - Type 2 diabetes mellitus with diabetic neuropathy, unspecified Code(s): E11.40 - Type 2 diabetes mellitus with diabetic neuropathy, unspecified Status: Acute (11) Ataxia: Code(s): R27.0 - Ataxia, unspecified Status: Acute (12) Left-sided sensory deficit present: Code(s): R44.9 - Unspecified symptoms and signs involving general sensations and perceptions Status: Acute (13) Right pontine stroke: Code(s): I63.50 - Cerebral infarction due to unspecified occlusion or stenosis of unspecified cerebral artery Status: Acute (14) Cerebellar stroke: Code(s): I63.9 - Cerebral infarction, unspecified Status: Acute (15) Stroke: Qualifiers: CVA mechanism: other Qualified Code(s): I63.89 - Other cerebral infarction Code(s): I63.9 - Cerebral infarction, unspecified Status: Acute Transfer Discharge Sum: Med Medications Active and Home Medications: Home Medications amlodipine 10 mg PO DAILY 09/17/19 [History Confirmed 09/27/19] atorvastatin 80 mg PO HS 09/17/19 [History Confirmed 09/27/19] hydrochlorothia
== END 2019-09-23 05:53 | disposition short-term general hospital (02) | DRG 56 ==
PROVIDERS: Internal Medicine Cardiovascular Disease; Admitting Provider Psychiatry & Neurology Neurology; PCP Family Medicine; Visit Provider Psychiatry & Neurology Neurology
DX: I69.354 Hemiplegia and hemiparesis following cerebral infarction affecting left non-dominant side (principal); J69.0 Pneumonitis due to inhalation of food and vomit; I63.9 Cerebral infarction, unspecified; I42.9 Cardiomyopathy, unspecified; N17.9 Acute kidney failure, unspecified; I69.392 Facial weakness following cerebral infarction; I69.322 Dysarthria following cerebral infarction; I69.393 Ataxia following cerebral infarction; E11.319 Type 2 diabetes mellitus with unspecified diabetic retinopathy without macular edema; E11.42 Type 2 diabetes mellitus with diabetic polyneuropathy; E11.65 Type 2 diabetes mellitus with hyperglycemia; F32.9 Major depressive disorder, single episode, unspecified; F17.210 Nicotine dependence, cigarettes, uncomplicated; H55.00 Unspecified nystagmus; H54.7 Unspecified visual loss; I65.23 Occlusion and stenosis of bilateral carotid arteries; I11.9 Hypertensive heart disease without heart failure; I65.02 Occlusion and stenosis of left vertebral artery; R29.702 NIHSS score 2; Z79.84 Long term (current) use of oral hypoglycemic drugs
CPT/HCPCS: 36415; 43752; 70551; 80048; 80061; 83036; 85025; 85652; 87040; 92507; 92522; 92526; 92610; 92611; 93005; 93225; 93226; 97110; 97116; 97162; 97166; 97530; 97535; A9270; J1815

== ENCOUNTER 2019-09-23 06:22 | Inpatient (IN) | payer BC, SELFPAY ==
[2019-09-23] VITALS (12 sets, daily range): BP systolic 100–143; BP diastolic 63–93; PULSE 65–81; RESP 12–20; TEMP 35.8–36.9; O2SAT 91–98; BMI 37.3
--- NOTE | ~2019-09-23 | XR_ITS ---
XR chest 1V portable DATE: 09/23/2019 06:54 INDICATION: Aspiration TECHNIQUE: Portable upright AP chest on 09/23/2019 at 0654 hours COMPARISON: None FINDINGS: There is patchy infiltrate and/atelectasis in the lower lung zones. Aspiration pneumonitis is a consideration. Heart size appears normal. No pleural effusion or pulmonary vascular congestion or pneumothorax is evident. IMPRESSION: Patchy infiltrate and/atelectasis in the lower lung zones; aspiration pneumonitis is not excluded. Reviewed, dictated and finalized at location A. IMPRESSION: Patchy infiltrate and/atelectasis in the lower lung zones; aspirati on pneumonitis is not excluded.
--- NOTE | ~2019-09-23 | XR_ITS ---
EXAMINATION: XR barium swallow modified EXAM DATE: 09/26/2019 15:22 INDICATION: Dysphagia. TECHNIQUE: Modified barium esophagram was performed by myself to administered fluoroscopy, in conjun ction with speech pathologist who administered barium in varying consistencies as per speech patholog ist documentation. This was recorded on tape. The DAP for this procedure was 1.9 Gycm2. FINDINGS: Oral stage: Adequate function. Pharyngeal phase: Large sinus residual. Laryngeal penetration: Demonstrated, thin liquids. Aspiration: None. IMPRESSION: Please refer to speech pathologist findings and specific feeding recommendations. Reviewed, dictated and finalized at location A. IMPRESSION: Please refer to speech pathologist findings and specific feeding r ecommendations.
--- NOTE | 2019-09-23 05:48 | PM.IMHP ---
H&P: HPI History of Present Illness Chief complaint: ACUTE EMBOLIC STROKE Narrative: This is a 44 year old diabetic who is known to recently have suffered 3 strokes in August and currently on our rehab unit. The patient underwent a MRI of his brain as he had worsening swallowing difficulties which demonstrated multiple new bilateral small strokes. The patient is currently receiving plavix and aspirin therapy and has a Dobhoff feeding tube in place. Cardiology was consulted yesterday and has evaluated the patient. We were originally consulted by Cardiology to evaluate the patient. Nursing staff has alerted me that the patient has had decreased responsiveness today and sounds gurgly . On my encounter with the patient this morning he is following my commands and has an obvious left sided upper/lower extremity weakness. He denies any pain but tells me he feels horrible. He has slurred speech which the nursing staff tells me is his new baseline. No other further significant history is obtainable from him at this time. Review of Systems Review of Systems: ROS unobtainable: Yes unobtainable due to medical condition [facility] Past Medical History Medical History Blindness Carotid disease, bilateral Diabetes mellitus with neuropathy Hypertension Left ventricular hypertrophy Family History Family History Father Cerebrovascular accident Mother Diabetes mellitus Other Congestive heart failure Social History Social History Social History: Previously worked in [employer]. Has a girlfriend and 2 children who are mostly grown. Smoking status: Former smoker Alcohol intake: current Drinks per week: 1 Substance use: never Substance use type: does not use Gender identity (if verbalized by the patient): Male Spiritual care concerns: No Agree to blood products: Yes Comments Past surgical history is unobtainable from the patient at this time. Meds Home Medications and Allergies Home Medications Medication Instructions Recorded Confirmed Type amlodipine 10 mg PO DAILY 09/17/19 09/23/19 History aspirin [Aspirin Childrens] 81 mg PO DAILY 09/17/19 09/23/19 History atorvastatin 80 mg PO HS 09/17/19 09/23/19 History carvedilol 25 mg PO BID 09/17/19 09/23/19 History clopidogrel [Plavix] 75 mg PO DAILY 09/17/19 09/23/19 History cyclobenzaprine 10 mg PO TID PRN 09/17/19 09/23/19 History hydrochlorothiazide 50 mg PO DAILY 09/17/19 09/23/19 History lisinopril 40 mg PO DAILY 09/17/19 09/23/19 History metformin 500 mg PO BID 09/17/19 09/23/19 History naproxen 500 mg PO BID 09/17/19 09/23/19 History Allergies Allergy/AdvReac Type Severity Reaction Status Date / Time No Known Allergies Allergy Verified 09/23/19 08:05 Vital Signs Vital Signs - 24 hr 09/22/19 06:00 09/22/19 09:32 09/22/19 14:00 Temperature 36.3 C L 36.3 C L Pulse Rate 79 79 73 Respiratory Rate 18 18 Blood Pressure 130/84 135/79 Pulse Oximetry 97 98 09/22/19 18:36 09/22/19 22:00 Temperature 36.3 C L Pulse Rate 73 76 Respiratory Rate 18 Blood Pressure 117/74 Pulse Oximetry 98 Exam Const: General: alert, awake, acute distress mild, ill appearing acutely and tired appearing Nutritional Appearance: obese morbidly obese Orientation/consciousness: oriented to person HENMT: Head: normal to inspection General nose exam: Normal external nose present Face and sinus: other (Left sided facial droop++ ) Mouth: Yes Normal oral and palatal mucosa present and Yes oropharynx normal Eyes: Pupils: Equal, round and reactive pupils present (Left pupil is reactive to light++ ) and Other pupil findings (Right eye - opacification) Neck: Neck: supple and no JVD Thyroid: thyroid normal Lymphatic: lymphadenopathy not noted Resp: Effort & Inspection: normal res
--- NOTE | 2019-09-23 06:36 | ECG_ITS ---
Measurements Intervals [place] Rate: 68 P: 50 [place]: 156 QRS: 24 QRSD: 113 T: -4 QT: 387 QTc: 414 Interpretive Statements SINUS RHYTHM POOR R WAVE PROGRESSION, CONSIDER ANTERIOR INFARCT INFERIOR INFARCT, AGE INDETERMINATE ABNORMAL ECG Electronically Signed On 09-23-2019 8:11:07 CDT by William Atkinson D.O.
[2019-09-23] MEDS: SODIUM CHLORIDE 0.9% IV 1,000 ML 120 ML IV CONT ×3 (06:58→23:51)
--- NOTE | 2019-09-23 07:02 | ADMGEN ---
This patient, [place], was transferred from [facility] 219-02 to IMU Room 205-01. Patient/family oriented to hospital policies and general routines including ID bracelet, bed and alarms, visiting hours, pain management, procedures, bathroom and other care routines, personal items, smoking policy, room service/diet, and visiting hours. Valuables list has been completed. Information on how to activate the Rapid Response Team has been discussed. Patient/Family are encouraged to report perceived risks to care and to ask questions if they do not understand what they are told or what they should do.
[2019-09-23 07:05] LABS: Prothrombin Time 13.3 Seconds (11.1-14.7)
[2019-09-23 07:06] LABS: Partial Thromboplastin Time 28.4 SECONDS (22.3-36.8)
[2019-09-23 07:09] LABS: Alanine Aminotransferase 34 U/L (4-50); Albumin Level 3.9 g/dL (3.5-5.1); Alkaline Phosphatase 86 U/L (38-126); Aspartate Amino Transferase 22 U/L (17-59); Bilirubin,Total 0.5 mg/dL (0.2-1.3); Blood Urea Nitrogen 52 mg/dL (9-20); Calcium 9.2 mg/dL (8.4-10.2); Carbon Dioxide 30 mmol/L (22-30); Chloride 101 mmol/L (98-107); Estimated CRCL calculation 53 ml/min; Estimated Glomerular Filt Rate 47; Glucose 177 mg/dL (75-110); Potassium 4.6 mmol/L (3.4-5.0); Sodium 137 mmol/L (137-145)
[2019-09-23 07:17] LABS: Magnesium 2.6 mg/dL (1.6-2.3)
[2019-09-23 07:26] LABS: Basophils Percent Auto 0.3 % (0.2-1.2); Eosinophils Percent Auto 0.4 % (0-4.4); Hematocrit 48.6 % (42.0-52.0); Hemoglobin 15.4 g/dL (14.0-18.0); Immature Granulocyte Absolute 0.02 K/mm3 (0.00-0.031); Immature Granulocyte Percent A 0.3 % (0-0.5); Lymphocytes Percent Auto 23.1 % (18.3-44.2); Mean Corpuscular HGB Conc 31.7 g/dl (32-36); Mean Corpuscular Hemoglobin 26.5 pg (26-34); Mean Corpuscular Volume 83.6 fl (80-100); Mean Platelet Volume 11.6 fl (7.4-10.4); Monocytes Absolute Auto 0.7 K/mm3 (0.1-0.6); Monocytes Percent Auto 8.8 % (2.6-8.5); Neutrophils Absolute Auto 4.9 K/mm3 (1.3-6.7); Neutrophils Percent Auto 67.1 % (45.5-73.1); Platelet Count Result 213 k/mm3 (150-375); Red Blood Count 5.81 M/mm3 (4.6-6.20); Red Cell Distribution Width 13.4 % (11.5-14.5); White Blood Count 7.4 K/mm3 (4.5-10.0)
[2019-09-23 07:30] LABS: Erythrocyte Sedimentation Rate 17 mm/hr (0-20)
[2019-09-23] MEDS: HEPARIN SODIUM 5,000 UNITS/ML VIAL 6500 UNITS IV PUSH (07:38)
[2019-09-23] MEDS: HEPARIN SOD/D5W 100 UNITS/ML 25,000 UNITS/250 ML BAG 15 UNITS IV CONT (07:39)
[2019-09-23 07:58] LABS: Glucose Point of Care 185 (65-105)
--- NOTE | 2019-09-23 09:46 | PM.IMPN ---
Progress Note: A&P Assessment and Plan (1) Embolic stroke: Qualifiers: Laterality of affected vessel: bilateral Code(s): I63.9 - Cerebral infarction, unspecified Status: Acute Assessment and Plan: MRI brain done on 09/22/2019 with moderate-sized right cerebellar, brachium pontis and leo subacute infarctions already known but also approximately a dozen scattered periventricular acute infarctions likely embolic source. Patient now on heparin drip. Neurology and cardiology following. Discussed with Dr. Holder today. Will need STEPHON. Sed rate remains normal at 17 today. Per Cardiology, COVID screen ordered this afternoon in anticipation of STEPHON as it does involve the airway. Will continue to monitor closely. Will need to restart PT/OT/ST once able. (2) Dysphagia: Qualifiers: Dysphagia type: unspecified Qualified Code(s): R13.10 - Dysphagia, unspecified Code(s): R13.10 - Dysphagia, unspecified Status: Acute Assessment and Plan: MBS completed on 09/21/2019 with moderate anterior leakage in [place] posteriorly as well as slow oral transit time and delayed swallows, [id number] aspiration on trials with thin liquids. Recommendation for non oral feedings at this time. Patient did have Dobbhoff placed while in [facility] with tube feeding started. Holding tube feedings today due to probable aspiration as noted below. Will restart when able. (3) Aspiration pneumonitis: Code(s): J69.0 - Pneumonitis due to inhalation of food and vomit Status: Acute Assessment and Plan: Chest x-ray done this morning with admission to the acute care hospital personally reviewed with patchy infiltrate in lower lung zones bilaterally. Will cover for possible aspiration with IV Zosyn. WBC is normal at this time. No fevers currently. Will continue to monitor. (4) Acute renal failure: Qualifiers: Acute renal failure type: unspecified Qualified Code(s): N17.9 - Acute kidney failure, unspecified Code(s): N17.9 - Acute kidney failure, unspecified Status: Acute Assessment and Plan: Creatinine currently at 1.90 which is higher than on presentation to [facility]. On IV fluids. Will monitor. (5) Hypertension: Qualifiers: Hypertension type: unspecified Qualified Code(s): I10 - Essential (primary) hypertension Code(s): I10 - Essential (primary) hypertension Status: Acute Assessment and Plan: Blood pressure reviewed on 09/23/2019 and presently stable. IV hydralazine available as needed. With recent stroke issues, will try to avoid hypotension. (6) Diabetes mellitus with neuropathy: Qualifiers: Diabetes mellitus correction insulin use: without correction use Diabetes mellitus type: type 2 Qualified Code(s): E11.40 - Type 2 diabetes mellitus with diabetic neuropathy, unspecified Code(s): E11.40 - Type 2 diabetes mellitus with diabetic neuropathy, unspecified Status: Acute Assessment and Plan: Glucose reviewed on 09/23/2019. Currently in acceptable range. Will continue to monitor. Sliding scale insulin available as needed. Will check hemoglobin A1c. (7) Carotid disease, bilateral: Qualifiers: Carotid artery disease type: occlusion Qualified Code(s): I65.23 - Occlusion and stenosis of bilateral carotid arteries Code(s): I77.9 - Disorder of arteries and arterioles, unspecified Status: Acute Assessment and Plan: Known 70% stenosis in right internal carotid artery. Was seen at [facility]. Treatment for new acute scattered embolic strokes as noted. (8) Cerebellar stroke: Code(s): I63.9 - Cerebral infarction, unspecified Status: Acute Assessment and Plan: Recent right cerebellar stroke with pontine stroke for which he was treated at [facility] and sent to [facility] for rehab. Now with multiple scattered em
--- NOTE | 2019-09-23 10:22 | PM.PNCARD ---
Progress Note: A&P Assessment and Plan (1) Embolic stroke: Qualifiers: Laterality of affected vessel: bilateral Code(s): I63.9 - Cerebral infarction, unspecified Status: Acute Assessment and Plan: History of multiple strokes with more strokes noted by MRI on Tuesday, probably cardioembolic. Normal white count and normal sed rate of 17 rule against endocarditis or vasculitis. Blood cultures are pending. Currently on a heparin drip. Needs a STEPHON which hopefully we can get that on Tuesday or Tuesday this week. (2) Hypertension: Qualifiers: Hypertension type: unspecified Qualified Code(s): I10 - Essential (primary) hypertension Code(s): I10 - Essential (primary) hypertension Status: Acute Assessment and Plan: Currently getting hydralazine IV push p.r.n. if SBP greater than 180. Currently blood pressure is little on the soft side and he is not requiring any medications. (3) Aspiration pneumonitis: Code(s): J69.0 - Pneumonitis due to inhalation of food and vomit Status: Acute Assessment and Plan: There is concerned he is aspirating and antibiotics were started for suspected aspiration pneumonitis. 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 Started on IV fluids. Subjective Date/time seen: Follow up for multiple strokes, possibly cardioembolic. Patient presented to [facility] in August with 3 strokes. He has had further trouble swallowing and MRI 09/22/2019 showed multiple new bilateral small strokes of concern for cardiac emboli. (the differential also acute includes other issues, see MRI report). He does have hypertension, and right-sided carotid disease, but this does not account for his bilateral strokes. No shunt was noted by transthoracic echo bubble study but this can be missed; this patient is a large gentleman and im , and a STEPHON to evaluate for cardiac source of emboli. He needs evaluation for vasculitis as well. 09/23/19 10:22 Date of Service: 09/23/2019 Pt transferred to IMU as above, with worsening slurred speech. He is on a heparin drip. Tube feedings on hold for possible aspiration as are his p.o. meds. Patient denies any pain or shortness of breath. Review of Systems Review of Systems: Narrative: Difficult to obtain review of systems because of dysarthria Constitutional: Constitutional: Reports weakness Eyes: Eyes: Reports no additional eye complaints ENT: Reports dysphagia and Denies epistaxis Cardiovascular: Cardiovascular: Denies chest pain and Denies pedal edema Respiratory: Respiratory: Denies cough and Denies dyspnea Gastrointestinal: Gastrointestinal: Denies abdominal pain Genitourinary: Genitourinary: Denies dysuria Musculoskeletal: Musculoskeletal: Reports no additional musculoskeletal complaints Integumentary/Breasts: Skin/Breast: Denies rash Neurologic: Reports Abnormal speech present Psychiatric: Psychiatric: Reports depression Exam Narrative: Exam Narrative: Ill-appearing young male and no physical distress, although appears more withdrawn compared to yesterday. However I was able to get him to smile at a joke that we had together yesterday.
[2019-09-23 11:57] LABS: Glucose Point of Care 185 (65-105)
[2019-09-23 14:19] LABS: Partial Thromboplastin Time > 200.0 SECONDS (22.3-36.8)
[2019-09-23 15:04] LABS: Partial Thromboplastin Time > 200.0 SECONDS (22.3-36.8)
[2019-09-23 17:40] LABS: Glucose Point of Care 120 (65-105)
--- NOTE | 2019-09-23 19:55 | CONS_ITS ---
DATE OF CONSULTATION: 09/23/2019 HISTORY OF PRESENT ILLNESS: A 44-year-old admitted to the rehab floor with a history of having had 3 strokes in August with increasing difficulties in swallowing, was receiving aspirin, Plavix, had just placed the Dobhoff feeding tube. Cardiologists were consulted with the possibility of the recurrent strokes, decreased responsiveness in addition to the history of bilateral carotid disease, diabetes mellitus, nephropathy, neuropathy, hypertension, and blindness. Being a former smoker, drinking only 1 drink per week. MEDICATIONS: Taking multiple medications such as: 1. Amlodipine 10 mg daily. 2. Aspirin 81 mg daily. 3. Atorvastatin 80 mg at night. 4. Carvedilol 25 mg twice a day. 5. Clopidogrel 75 mg daily. 6. Cyclobenzaprine 10 mg t.i.d. 7. Hydrochlorothiazide 50 mg daily. 8. Lisinopril 40 mg daily. 9. Metformin 500 twice a day. 10. Naproxen 500 twice a day. ALLERGIES: HE IS NOT ALLERGIC TO ANY MEDICATION. ? He was seen by the continuous crusher operator as well as with by the hospitalist and has been transferred to the regular floor for the ongoing cardiac care with the possibility of the atrial fibrillation and recurrent embolic stroke. He also have ongoing history of the renal failure. EKG on September 22 with poor R-wave progression, anterior infarct and inferior infarct. The patient has been seen by the continuous crusher operator as well. STEPHON has been considered to evaluate the cardiac source of emboli in addition to the possibly of the vasculitis. At this stage, he is awake, but drowsy, followed the instruction, though somewhat withdrawn. He had been depressed on the rehab floor and has been treated accordingly. PHYSICAL EXAMINATION: GENERAL: No obvious acute distress. HEENT: Head normocephalic. Ear, nose, throat examination normal. NECK: Supple with no cervical bruit. No thyromegaly. No lymphadenopathy. HEART: Regular. LUNGS: Clear. ABDOMEN: Soft. NEUROLOGICAL: He is awake, opens the eyes. His speech is somewhat dysarthric, withdrawn, does not follow the instructions very well. Face symmetrical. Tongue midline. Motor examination revealed him to have hemiparesis with hyperreflexia and upgoing plantar responses. At this stage, he is receiving IV fluids, continuous heparin infusion has been started because of the recurrent embolic strokes involving the bihemisphere. Further adjustment will be made accordingly. PALMA Beto AKINS SUBGRADE ROLLER OPERATOR SUBGRADE ROLLER OPERATOR D I MT: Raman
[2019-09-23 23:31] LABS: Glucose Point of Care 118 (65-105)
[2019-09-24] VITALS (15 sets, daily range): BP systolic 137–173; BP diastolic 77–106; PULSE 72–85; RESP 18–22; TEMP 36.2–36.9; O2SAT 95–99
[2019-09-24] MEDS: HEPARIN SOD/D5W 100 UNITS/ML 25,000 UNITS/250 ML BAG 11 UNITS IV CONT (04:12)
[2019-09-24 06:01] LABS: Glucose Point of Care 129 (65-105)
[2019-09-24 06:11] LABS: Basophils Percent Auto 0.5 % (0.2-1.2); Eosinophils Percent Auto 0.6 % (0-4.4); Hematocrit 45.1 % (42.0-52.0); Hemoglobin 14.2 g/dL (14.0-18.0); Immature Granulocyte Absolute 0.01 K/mm3 (0.00-0.031); Immature Granulocyte Percent A 0.2 % (0-0.5); Lymphocytes Absolute Auto 1.81 K/mm3 (0.9-3.2); Lymphocytes Percent Auto 27.8 % (18.3-44.2); Mean Corpuscular HGB Conc 31.5 g/dl (32-36); Mean Corpuscular Hemoglobin 26.3 pg (26-34); Mean Corpuscular Volume 83.7 fl (80-100); Mean Platelet Volume 11.4 fl (7.4-10.4); Monocytes Absolute Auto 0.5 K/mm3 (0.1-0.6); Monocytes Percent Auto 8.3 % (2.6-8.5); Neutrophils Absolute Auto 4.1 K/mm3 (1.3-6.7); Neutrophils Percent Auto 62.6 % (45.5-73.1); Platelet Count Result 200 k/mm3 (150-375); Red Blood Count 5.39 M/mm3 (4.6-6.20); Red Cell Distribution Width 13.2 % (11.5-14.5); White Blood Count 6.5 K/mm3 (4.5-10.0)
[2019-09-24 06:21] LABS: Blood Urea Nitrogen 42 mg/dL (9-20); Calcium 8.6 mg/dL (8.4-10.2); Carbon Dioxide 28 mmol/L (22-30); Chloride 106 mmol/L (98-107); Estimated CRCL calculation 46 ml/min; Estimated Glomerular Filt Rate 40; Glucose 119 mg/dL (75-110); Partial Thromboplastin Time 136.3 SECONDS (22.3-36.8); Potassium 4.2 mmol/L (3.4-5.0); Sodium 140 mmol/L (137-145)
[2019-09-24 06:28] LABS: Hemoglobin A1C 11.4 % (<5.7)
[2019-09-24] MEDS: SODIUM CHLORIDE 0.9% IV 1,000 ML 120 ML IV CONT ×2 (09:18→17:53)
--- NOTE | 2019-09-24 10:29 | PM.IMPN ---
Progress Note: A&P Assessment and Plan (1) Embolic stroke: Qualifiers: Laterality of affected vessel: bilateral Code(s): I63.9 - Cerebral infarction, unspecified Status: Acute Assessment and Plan: MRI brain done on 09/22/2019 with moderate-sized right cerebellar, brachium pontis and leo subacute infarctions already known but also approximately a dozen scattered periventricular acute infarctions likely embolic source. Neurology and cardiology consulted. Continue IV heparin for now. Possible STEPHON. Sed rate normal. COVID-19 testing initiated because of possible STEPHON with results pending but not suspicious with current presentation. Telemetry reviewed on 09/24/2019 with sinus rhythm. Will ask PT/OT/ST to evaluate and treat. Patient clinically much improved today with speech clear and normal mentation. Will continue to monitor. (2) Dysphagia: Qualifiers: Dysphagia type: unspecified Qualified Code(s): R13.10 - Dysphagia, unspecified Code(s): R13.10 - Dysphagia, unspecified Status: Acute Assessment and Plan: MBS completed on 09/21/2019 with moderate anterior leakage and premature spillage posteriorly as well as slow oral transit time and delayed swallows, [id number] aspiration on trials with thin liquids. Recommendation for non oral feedings at this time. Patient did have Dobbhoff placed while in [facility] with tube feeding started. Tube feedings placed on hold yesterday given other issues. Will continue to hold tube feedings today with possible STEPHON. Will have ST evaluate and treat while on acute floor. Continue to monitor. (3) Aspiration pneumonitis: Code(s): J69.0 - Pneumonitis due to inhalation of food and vomit Status: Acute Assessment and Plan: Chest x-ray done on 09/23/2019 with admission to the acute care hospital personally reviewed with patchy infiltrate in lower lung zones bilaterally. IV Zosyn started to cover for possible aspiration. WBC remains normal with no fevers. Blood cultures negative to date. May be able to discontinue antibiotics in next 24-48 hours if blood cultures remain negative and no other issues. (4) Acute renal failure: Qualifiers: Acute renal failure type: unspecified Qualified Code(s): N17.9 - Acute kidney failure, unspecified Code(s): N17.9 - Acute kidney failure, unspecified Status: Acute Assessment and Plan: Creatinine slightly higher at 2.20 today. He does remain on IV fluids. Continue to hold nephrotoxic agents. Will monitor for now but may need nephrology consult if continues to increase. (5) Hypertension: Qualifiers: Hypertension type: unspecified Qualified Code(s): I10 - Essential (primary) hypertension Code(s): I10 - Essential (primary) hypertension Status: Acute Assessment and Plan: Blood pressure reviewed on 09/24/2019. Systolic blood pressure 140s to 160s which is acceptable with acute CVA. Will continue to try to avoid hypotension and allow permissive hypertension. IV hydralazine available if needed. Will monitor. Amlodipine, carvedilol, hydrochlorothiazide and lisinopril all remain on hold. (6) Diabetes mellitus with neuropathy: Qualifiers: Diabetes mellitus terminal computer operator insulin use: without longterm use Diabetes mellitus type: type 2 Qualified Code(s): E11.40 - Type 2 diabetes mellitus with diabetic neuropathy, unspecified Code(s): E11.40 - Type 2 diabetes mellitus with diabetic neuropathy, unspecified Status: Acute Assessment and Plan: Hemoglobin A1c 11.4 indicating poor control prior to recent events. Glucose reviewed on 09/24/2019. Remains in normal range currently. Not on medication at this time but was previously on metformin which will remain on hold particularly with elevated creatinine level. Sliding scale insulin available as needed. Will continue to monitor. (7) Carotid disease, bilateral
--- NOTE | 2019-09-24 11:30 | PCPTNOTE ---
Physical therapist spoke with Dr. Yi and therapy will initiate evaluations tomorrow as deemed appropriate following STEPHON procedure and further medical workup. Marina Larson, PT, DPT
--- NOTE | 2019-09-24 11:37 | PM.PNCARD ---
Progress Note: A&P Assessment and Plan (1) Embolic stroke: Qualifiers: Laterality of affected vessel: bilateral Code(s): I63.9 - Cerebral infarction, unspecified Status: Acute Assessment and Plan: History of multiple strokes with more strokes noted by MRI on Tuesday, probably cardioembolic. Normal white count and normal sed rate of 17 rule against endocarditis or vasculitis. Blood cultures are negative thus far Currently on a heparin drip. STEPHON recommended by Dr Holder with COVID screening. COVID test still pending. As he has difficulty swallowing with concern for aspiration will be safer to set up STEPHON to be done with anesthesia. (2) Hypertension: Qualifiers: Hypertension type: unspecified Qualified Code(s): I10 - Essential (primary) hypertension Code(s): I10 - Essential (primary) hypertension Status: Acute Assessment and Plan: Currently getting hydralazine IV push p.r.n. if SBP greater than 180. Currently blood pressure is stable and he is not requiring any medications. (3) Aspiration pneumonitis: Code(s): J69.0 - Pneumonitis due to inhalation of food and vomit Status: Acute Assessment and Plan: There is concerned he is aspirating and antibiotics were started for suspected aspiration pneumonitis. (4) Left ventricular hypertrophy: Code(s): I51.7 - Cardiomegaly Status: Acute Assessment and Plan: Has severe LVH, possibly a hypertrophic nonobstructive cardiomyopathy, per echo from [facility] (5) Diabetes mellitus with neuropathy: Qualifiers: Diabetes mellitus type: type 2 Diabetes mellitus residential insulin use: without infant nanny use Qualified Code(s): E11.40 - Type 2 diabetes mellitus with diabetic neuropathy, unspecified Code(s): E11.40 - Type 2 diabetes mellitus with diabetic neuropathy, unspecified Status: Acute Assessment and Plan: Also has some chronic kidney disease worsened recently, probably dry. IV fluids per Dr Yi Additional Plan Plan discussed with Dr Blue 1150 09/24/2019 Time Spent With Patient Time with patient: less than 15 minutes Subjective Date/time seen: 09/24/19 11:37 Interval history: Follow up for: new bilateral embolic CVA. Date of Service: 09/24/2019 Subjective: No chest discomfort or shortness of breath. No palpitations. Not as dizzy as he was when started having strokes. Not swallowing too well today Review of Systems Constitutional: Constitutional: Reports weakness Eyes: Eyes: Reports no additional eye complaints ENT: Reports dysphagia and Denies epistaxis Cardiovascular: Cardiovascular: Denies chest pain, Denies pedal edema and Denies dyspnea Respiratory: Respiratory: Denies cough and Denies dyspnea Gastrointestinal: Gastrointestinal: Denies abdominal pain and Reports dysphagia Genitourinary: Genitourinary: Denies dysuria Musculoskeletal: Musculoskeletal: Reports no additional musculoskeletal complaints Integumentary/Breasts: Skin/Breast: Denies rash Neurologic: Reports Abnormal speech present, Reports dizziness (Not as bad as it has been) and Reports weakness Psychiatric: Psychiatric: Reports depression Allergic/Immunologic: Allergic/Immunologic: Denies wheezing Exam Narrative: Exam Narrative: Ill-appearing young male and no physical distress. Const: General: comfortable and no acute distress HENMT: Mouth: Yes moist mucous membranes Eyes: EOM: EOM not intact bilaterally (Blind in right eye) Neck: Neck: supple Resp: Effort & Inspection: normal respiratory effort Auscultation: clear to auscultation bilaterally Cardio: Rate: regular rate Rhythm: regular rhythm Heart sounds: no murmurs GI: GI Palp: Yes Soft to palpation and No Tenderness to palpation present (GI) Auscultation: n
--- NOTE | 2019-09-24 11:41 | PCOTNOTE ---
Physical therapist spoke with Dr. Yi and therapy will initiate evaluations tomorrow as deemed appropriate following STEPHON procedure and further medical workup. Will attempt OT evaluation when medically appropriate
[2019-09-24 12:59] LABS: Partial Thromboplastin Time 61.7 SECONDS (22.3-36.8)
[2019-09-24 13:01] LABS: Glucose Point of Care 110 (65-105)
--- NOTE | 2019-09-24 13:04 | PCSTNOTE ---
Attempted ST evaluation; however, ST was instructed to hold evaluation until after STEPHON testing. Pt is NPO as MBS on 09-21-2019 revealed severe dysphagia.
[2019-09-24] MEDS: HEPARIN SODIUM 5,000 UNITS/ML VIAL 3500 UNITS IV PUSH (14:28)
[2019-09-24 15:31] LABS: SARS-CoV-2 RNA PCR Negative
--- NOTE | 2019-09-24 16:30 | WPDNEUROPN ---
Progress Note: A&P Assessment and Plan (1) Left ventricular hypertrophy: Code(s): I51.7 - Cardiomegaly Status: Acute (2) Aspiration pneumonitis: Code(s): J69.0 - Pneumonitis due to inhalation of food and vomit Status: Acute (3) DVT prophylaxis: Code(s): Z29.9 - Encounter for prophylactic measures, unspecified Status: Acute (4) Acute renal failure: Qualifiers: Acute renal failure type: unspecified Qualified Code(s): N17.9 - Acute kidney failure, unspecified Code(s): N17.9 - Acute kidney failure, unspecified Status: Acute (5) Dysphagia: Qualifiers: Dysphagia type: unspecified Qualified Code(s): R13.10 - Dysphagia, unspecified Code(s): R13.10 - Dysphagia, unspecified Status: Acute (6) Embolic stroke: Qualifiers: Laterality of affected vessel: bilateral Code(s): I63.9 - Cerebral infarction, unspecified Status: Acute (7) Carotid disease, bilateral: Qualifiers: Carotid artery disease type: occlusion Qualified Code(s): I65.23 - Occlusion and stenosis of bilateral carotid arteries Code(s): I77.9 - Disorder of arteries and arterioles, unspecified Status: Acute (8) Hypertension: Qualifiers: Hypertension type: unspecified Qualified Code(s): I10 - Essential (primary) hypertension Code(s): I10 - Essential (primary) hypertension Status: Acute (9) Blindness: Qualifiers: Right eye visual impairment category: right - unspecified blindness Left eye visual impairment category: left - normal vision Qualified Code(s): H54.40 - Blindness, one eye, unspecified eye Code(s): H54.7 - Unspecified visual loss Status: Acute (10) Diabetes mellitus with neuropathy: Qualifiers: Diabetes mellitus type: type 2 Diabetes mellitus usp insulin use: without superintendent marine oil terminal use Qualified Code(s): E11.40 - Type 2 diabetes mellitus with diabetic neuropathy, unspecified Code(s): E11.40 - Type 2 diabetes mellitus with diabetic neuropathy, unspecified Status: Acute (11) Ataxia: Code(s): R27.0 - Ataxia, unspecified Status: Acute (12) Left-sided sensory deficit present: Code(s): R44.9 - Unspecified symptoms and signs involving general sensations and perceptions Status: Acute (13) Right pontine stroke: Code(s): I63.50 - Cerebral infarction due to unspecified occlusion or stenosis of unspecified cerebral artery Status: Acute (14) Cerebellar stroke: Code(s): I63.9 - Cerebral infarction, unspecified Status: Acute (15) Stroke: Qualifiers: CVA mechanism: other Qualified Code(s): I63.89 - Other cerebral infarction Code(s): I63.9 - Cerebral infarction, unspecified Status: Acute Additional Plan stable Review of Systems Review of Systems: All systems reviewed & are unremarkable except as noted in HPI and below Exam Const: General: awake, anxious and confusion Nutritional Appearance: obese Orientation/consciousness: oriented to person Eyes: Periorbital: periorbital findings normal Conjunctivae: conjunctivae normal Sclera: sclerae normal EOM: EOM abnormal Neck: Neck: full ROM and no lymphadenopathy Resp: Effort & Inspection: normal respiratory effort Auscultation: rhonchi Cardio: Rate: regular rate GI: Auscultation: normal bowel sounds Skin: General skin exam: no rashes or lesions noted Neuro: General: oriented to person and oriented to place Cranial nerves: Yes facial symmetry (assymetry), Yes Midline tongue present and Yes Ability to bilaterally elevate shoulders present Speech: Abnormal speech present Gait exam (Neuro): Unable to assess gait Motor exam (neuro): Abnormal motor strength present Sensory Exam: Sensory deficit (Neuro) Psych: Speech and movement: Slowed speech present (Psych) Affect: Sad affect present Attitude: Guarded attititude
[2019-09-24 17:47] LABS: Glucose Point of Care 92 (65-105)
[2019-09-24 20:00] LABS: Partial Thromboplastin Time 147.4 SECONDS (22.3-36.8)
[2019-09-24 23:32] LABS: Glucose Point of Care 89 (65-105)
[2019-09-25] VITALS (24 sets, daily range): BP systolic 132–188; BP diastolic 85–106; PULSE 71–92; RESP 13–23; TEMP 35.7–36.7; O2SAT 92–100; BMI 37.5
[2019-09-25] MEDS: SODIUM CHLORIDE 0.9% IV 1,000 ML 120 ML IV CONT ×3 (01:53→20:35)
[2019-09-25 04:00] LABS: Hematocrit 47.3 % (42.0-52.0); Hemoglobin 14.9 g/dL (14.0-18.0); Mean Corpuscular HGB Conc 31.5 g/dl (32-36); Mean Corpuscular Hemoglobin 26.4 pg (26-34); Mean Corpuscular Volume 83.7 fl (80-100); Mean Platelet Volume 11.3 fl (7.4-10.4); Platelet Count Result 191 k/mm3 (150-375); Red Blood Count 5.65 M/mm3 (4.6-6.20); Red Cell Distribution Width 13.1 % (11.5-14.5); White Blood Count 6.4 K/mm3 (4.5-10.0)
[2019-09-25 04:14] LABS: Partial Thromboplastin Time 67.4 SECONDS (22.3-36.8)
[2019-09-25 04:16] LABS: Blood Urea Nitrogen 29 mg/dL (9-20); Calcium 8.8 mg/dL (8.4-10.2); Carbon Dioxide 27 mmol/L (22-30); Chloride 108 mmol/L (98-107); Estimated CRCL calculation 67 ml/min; Estimated Glomerular Filt Rate > 60; Glucose 91 mg/dL (75-110); Potassium 4.5 mmol/L (3.4-5.0); Sodium 139 mmol/L (137-145)
[2019-09-25] MEDS: HEPARIN SODIUM 5,000 UNITS/ML VIAL 3500 UNITS IV PUSH (05:02)
[2019-09-25 08:08] LABS: Glucose Point of Care 90 (65-105)
[2019-09-25] MEDS: HEPARIN SOD/D5W 100 UNITS/ML 25,000 UNITS/250 ML BAG 11 UNITS IV CONT (08:18)
--- NOTE | 2019-09-25 09:39 | WPDMODSED ---
Moderate Sedation Note-Pt Data Patient Data Diagnosis: Multiple bilateral strokes Present Complaint: Multiple bilateral strokes, probably cardioembolic Procedure to be performed/Plan: Conscious sedation, transesophageal echo Allergies Allergy/AdvReac Type Severity Reaction Status Date / Time No Known Allergies Allergy Verified 09/23/19 08:05 Home Medications Medication Instructions Recorded Confirmed Type amlodipine 10 mg PO DAILY 09/17/19 09/23/19 History aspirin [Aspirin Childrens] 81 mg PO DAILY 09/17/19 09/23/19 History atorvastatin 80 mg PO HS 09/17/19 09/23/19 History carvedilol 25 mg PO BID 09/17/19 09/23/19 History clopidogrel [Plavix] 75 mg PO DAILY 09/17/19 09/23/19 History cyclobenzaprine 10 mg PO TID PRN 09/17/19 09/23/19 History hydrochlorothiazide 50 mg PO DAILY 09/17/19 09/23/19 History lisinopril 40 mg PO DAILY 09/17/19 09/23/19 History metformin 500 mg PO BID 09/17/19 09/23/19 History naproxen 500 mg PO BID 09/17/19 09/23/19 History Current Medications: Active Medications Dextrose (Dextrose 50% Syringe) 12.5 gm IV PUSH PRN PRN; Protocol PRN Reason: Hypoglycemia Glucagon (Glucagon For Inj) 1 mg IM PRN PRN; Protocol PRN Reason: Hypoglycemia Heparin Sodium (Porcine) (Heparin Sodium) 6,500 units IV PUSH PRN PRN PRN Reason: aPTT less than 55 seconds Heparin Sodium (Porcine) (Heparin Sodium) 3,500 units IV PUSH PRN PRN PRN Reason: aPTT 55 - 70 seconds Last Admin: 09/25/19 05:02 Dose: 3,500 units Documented by: Heparin Sodium/Dextrose (Heparin Sodium/D5w 100 Units/Ml) 25,000 units in 250 mls @ 11 mls/hr IV CONT .[id number] [facility]; Protocol Last Admin: 09/25/19 08:18 Dose: 1,100 units/hr, 11 mls/hr Documented by: Sodium Chloride (Normal Saline Iv) 1,000 mls @ 120 mls/hr IV CONT .[id number] [facility] Last Infusion: 09/25/19 03:59 Dose: 120 mls/hr Documented by: Dextrose (Dextrose 5% 1,000 Ml) 1,000 mls @ 100 mls/hr IVPB PRN PRN; Protocol PRN Reason: Hypoglycemia Piperacillin/Tazobactam/Dextrose (Zosyn 3.375 Gm/D5w 50ml Pm) 3.375 gm in 50 mls @ 100 mls/hr IVPB Q6H ELI Last Admin: 09/25/19 09:08 Dose: 100 mls/hr Documented by: Insulin Aspart (Novolog) 2 - 5 units SUB-Q Q6H ELI; Protocol Last Admin: 09/25/19 06:18 Dose: Not Given Documented by: Sedation/Anesthesia: No previous sedation/anesthesia problems (including family history). [facility] Past Medical History Medical History Blindness Carotid disease, bilateral Diabetes mellitus with neuropathy Hypertension Left ventricular hypertrophy Family History Family History Father Cerebrovascular accident Mother Diabetes mellitus Other Congestive heart failure Social History Social History Social History: Previously worked in [employer]. Has a girlfriend and 2 children who are mostly grown. Smoking status: Former smoker Alcohol intake: current Drinks per week: 1 Substance use: never Substance use type: does not use Gender identity (if verbalized by the patient): Male Spiritual care concerns: No Agree to blood products: Yes Mod Sed Physical Exam Physical Exam Pre Procedural Exam: Normal: Appearance, Eyes, Ears, Neck, Airway, Lungs, Heart Size, Heart Rate, Heart Rhythm, Neuro Exam, Abdomen, Genitalia, Extremities and Skin and Variation: Nose (Dobbhoff in place, has been clamped) and Throat (Thick tongue, small oral airway, some broken teeth) Hours since solid foods: 48 Hours since liquid intake: 48 Internal Medicine - PN: Obj Da Vital Signs Vital Signs: Vital Signs - 24 hr 09/24/19 10:00 09/24/19 12:00 09/24/19 14:00 Temperature 97.6 F Pulse Rate 76 77 82 Respiratory Rate 18 Blood Pressure 163/83 H Pulse Oximetry 97 09/24/19 16:00 09/24/19 18:00 09/24/19 19:31 Temperature 97.6 F 97.7 F Pulse Rate 82 83 84 Respirato
--- NOTE | 2019-09-25 10:00 | WPDANESEPP ---
Anes - Eval Pre Procedure Procedure: Operation Date: 09/25/19 10:00 Proposed Procedures p Trans Esophageal Echo - Victoria Holder MD Date/Time: 09/25/19 10:00 Pre Op Diagnosis: ACUTE EMBOLIC STROKE Patient Data Age: 44 Gender: M Height: 1.7 m Weight: 108.6 kg Last Vital Signs Temp 36.2 C L 09/25/19 08:27 Pulse 82 09/25/19 08:27 Resp 20 09/25/19 08:27 BP 158/90 H 09/25/19 08:27 Pulse Ox 97 09/25/19 08:27 Allergies Allergy/AdvReac Type Severity Reaction Status Date / Time No Known Allergies Allergy Verified 09/23/19 08:05 Home Medications Medication Instructions Recorded Confirmed Type amlodipine 10 mg PO DAILY 09/17/19 09/23/19 History aspirin [Aspirin Childrens] 81 mg PO DAILY 09/17/19 09/23/19 History atorvastatin 80 mg PO HS 09/17/19 09/23/19 History carvedilol 25 mg PO BID 09/17/19 09/23/19 History clopidogrel [Plavix] 75 mg PO DAILY 09/17/19 09/23/19 History cyclobenzaprine 10 mg PO TID PRN 09/17/19 09/23/19 History hydrochlorothiazide 50 mg PO DAILY 09/17/19 09/23/19 History lisinopril 40 mg PO DAILY 09/17/19 09/23/19 History metformin 500 mg PO BID 09/17/19 09/23/19 History naproxen 500 mg PO BID 09/17/19 09/23/19 History Laboratory Tests 09/23/19 09/24/19 09/24/19 17:33 12:38 12:44 WBC RBC Hgb Hct MCV MCH MCHC RDW Plt Count MPV APTT 61.7 SECONDS H SECONDS (22.3-36.8) Sodium Potassium Chloride Carbon Dioxide BUN Creatinine Estim Creat Clear Calc Estimated GFR Glucose POC Capillary Glucose 110 mg/dl mg/dl (65-105) Calcium SARS-CoV-2 RNA (RT-PCR) Negative 09/24/19 09/24/19 09/24/19 17:44 19:43 23:26 WBC RBC Hgb Hct MCV MCH MCHC RDW Plt Count MPV APTT 147.4 SECONDS H SECONDS (22.3-36.8) Sodium Potassium Chloride Carbon Dioxide BUN Creatinine Estim Creat Clear Calc Estimated GFR Glucose POC Capillary Glucose 92 mg/dl mg/dl 89 mg/dl mg/dl (65-105) (65-105) Calcium SARS-CoV-2 RNA (RT-PCR) 09/25/19 09/25/19 09/25/19 03:54 03:54 03:54 WBC 6.4 K/mm3 K/mm3 (4.5-10.0) RBC 5.65 M/mm3 M/mm3 (4.6-6.20) Hgb 14.9 g/dL g/dL (14.0-18.0) Hct 47.3 % % (42.0-52.0) MCV 83.7 fl fl (80-100) MCH 26.4 pg pg (26-34) MCHC 31.5 g/dl L g/dl (32-36) RDW 13.1 % % (11.5-14.5) Plt Count 191 k/mm3 k/mm3 (150-375) MPV 11.3 fl H fl (7.4-10.4) APTT 67.4 SECONDS H SECONDS (22.3-36.8) Sodium 139 mmol/L mmol/L (137-145) Potassium 4.5 mmol/L mmol/L (3.4-5.0) Chloride 108 mmol/L H mmol/L (98-107) Carbon Dioxide 27 mmol/L mmol/L (22-30) BUN 29 mg/dL H D mg/dL (9-20) Creatinine 1.50 mg/dL H mg/dL (0.7-1.3) Estim Creat Clear Calc 67 ml/min ml/min Estimated GFR > 60 (59 - ) Glucose 91 mg/dL mg/dL (75-110) POC Capillary Glucose Calcium 8.8 mg/dL mg/dL (8.4-10.2) SARS-CoV-2 RNA (RT-PCR) 09/25/19 06:17 WBC RBC Hgb Hct MCV MCH MCHC RDW Plt Count MPV APTT Sodium Potassium Chloride Carbon Dioxide BUN Creatinine Estim Creat Clear Calc Estimated GFR Glucose POC Capillary Glucose 90 mg/dl mg/dl (65-105) Calcium SARS-CoV-2 RNA (RT
--- NOTE | 2019-09-25 10:12 | WPDANESEFPP ---
Anes - Eval Final PreProcedure Day of Procedure 09/25/19 10:12 Patient weight: obese Heart: tachycardia Lungs: decreased breath sounds Airway: Mallampati scale class III Neurological: other (alert) Last oral intake: >/= 8 hours ASA classification: IV Emergent: no Anesthetic plan: proceed Anesthesia type and monitoring: general GIVS and standard monitoring Informed Consent: The patient's anesthetic plan and its attendant risks and benefits were discussed with the patient/family/POA. Questions were solicited and answers provided to the satisfaction of the patient/family/POA.
--- NOTE | 2019-09-25 10:47 | PCPTNOTE ---
The patient evaluation treatment was not able to be completed on 09/25/19 at 10:48 am due to at a medical procedure. Will plan to attempt PT eval in the afternoon.
[2019-09-25 11:42] LABS: Partial Thromboplastin Time 123.7 SECONDS (22.3-36.8)
[2019-09-25 12:03] LABS: Glucose Point of Care 78 (65-105)
--- NOTE | 2019-09-25 12:44 | P.PCNTEE_ITS ---
STEPHON TransEsophageal Echocardiogram Date of procedure: 09/25/19 Procedure Type: Transesophageal echo Diagnosis: Multiple strokes Indications: Multiple strokes Image Quality: Good Findings: Conscious sedation: Per Anesthesia. Procedure: After informed consent the patient had Hurricaine spray the hypopharynx. The patient had sedation as described above. The patient has a small oropharynx. The transesophageal echo probe was introduced in the esophagus without difficulty. Imaging was obtained in multiplane views. Agitated saline was injected to evaluate for intracardiac shunting. The patient tolerated the procedure well with no complications. Findings: The left atrium moderately enlarged. There is no thrombus present in the left atrium or left atrial appendage. The atrial septum appeared intact. Mitral valve appeared normal, with no stenosis or prolapse. The left ventricle had had normal size with severe concentric hypertrophy (1.5-1.7 cm thick) with good contractility of all segments. The ejection fraction is estimated to be: 60%. The aortic root and valve were normal. The ascending aorta, aortic arch and descending thoracic aorta were normal. The right atrium, tricuspid valve, right ventricle, pulmonic valve and pulmonic artery were all normal. There is no pericardial effusion. When agitated saline was injected intravenously there was no evidence of intracardiac shunting during normal respiration and abdominal compression. Valsalva and cough could not be performed because of the patient's decreased level of consciousness with anesthesia.. Colorflow Doppler Findings: Trivial mitral regurgitation but no other valvular heart disease. Conclusions: No thrombi seen. No masses seen. No vegetations seen. Normal aorta, no atheroma seen. No intracardiac shunting present. Severe concentric left ventricular hypertrophy. Normal left ventricular systolic function, EF 60%. No valvular heart disease. Recommendations: The etiology of the patient's multiple strokes is not determ ined. Will continue telemetry but we have not seen any atrial fibrillation. The patient appeared to fail therapy with aspirin and Plavix. I recommend continuing anticoagulation with an anti-platelet agent, perhaps Xarelto 20 mg daily (or warfarin), when able to take p.o., and Plavix 75 mg daily.
--- NOTE | 2019-09-25 13:30 | PM.IMPN ---
Progress Note: A&P Assessment and Plan (1) Embolic stroke: Qualifiers: Laterality of affected vessel: bilateral Code(s): I63.9 - Cerebral infarction, unspecified Status: Acute Assessment and Plan: MRI brain done on 09/22/2019 with moderate-sized right cerebellar, brachium pontis and leo subacute infarctions already known but also approximately a dozen scattered periventricular acute infarctions likely embolic source. Neurology and cardiology consulted and appreciate their input. Currently on IV heparin. STEPHON performed but not showing any clear etiolgoy for his CVAs. Sed rate normal. COVID-19 testing negative. Telemetry showing sinus rhythm. PT/OT/ST to evaluate and treat. Contineu Heparin for now since PEG tube may be indicated. (2) Dysphagia: Qualifiers: Dysphagia type: unspecified Qualified Code(s): R13.10 - Dysphagia, unspecified Code(s): R13.10 - Dysphagia, unspecified Status: Acute Assessment and Plan: MBS completed on 09/21/2019 with moderate anterior leakage and premature spillage posteriorly as well as slow oral transit time and delayed swallows, [id number] aspiration on trials with thin liquids. Recommendation for non oral feedings at this time. Patient did have Dobbhoff placed while in [facility] with tube feeding started. Tube feedings placed on hold 09/23/19. STEPHON is complete and patient alert. Will resume tube feedings today and have ST evaluate and treat while on acute floor. Continue to monitor. Aspiration precautions. Elevate head of bed. And up to the chair. Discussed with him about PEG and he wants to think about it. (3) Aspiration pneumonitis: Code(s): J69.0 - Pneumonitis due to inhalation of food and vomit Status: Acute Assessment and Plan: Chest x-ray done on 09/23/2019 with this admission showing patchy infiltrate in lower lung zones bilaterally. IV Zosyn started to cover for possible aspiration. WBC remains normal, no fevers and BCx remain negative. Not requiring O2. Will continue for now but stop abx tomorrow if no issues. (4) Acute renal failure: Qualifiers: Acute renal failure type: unspecified Qualified Code(s): N17.9 - Acute kidney failure, unspecified Code(s): N17.9 - Acute kidney failure, unspecified Status: Acute Assessment and Plan: Creatinine back down to 1.50 today. Continue to hold nephrotoxic agents. Will continue to monitor for now. (5) Hypertension: Qualifiers: Hypertension type: unspecified Qualified Code(s): I10 - Essential (primary) hypertension Code(s): I10 - Essential (primary) hypertension Status: Acute Assessment and Plan: Blood pressure reviewed on 09/25/2019. BP elevated at times which is acceptable with acute CVA. Will continue to allow for permissive HTN and try to avoid hypotension. Coreg resumed. IV hydralazine available if needed. Amlodipine, hydrochlorothiazide and lisinopril all remain on hold. Contineu to monitor. (6) Diabetes mellitus with neuropathy: Qualifiers: Diabetes mellitus [facility] insulin use: without long term care social worker use Diabetes mellitus type: type 2 Qualified Code(s): E11.40 - Type 2 diabetes mellitus with diabetic neuropathy, unspecified Code(s): E11.40 - Type 2 diabetes mellitus with diabetic neuropathy, unspecified Status: Acute Assessment and Plan: A1c 11.4 indicating poor control prior to recent events. Glucose reviewed on 09/25/2019. Glucose well controlled. Not on medication at this time but was previously on metformin which will remain on hold particularly with elevated creatinine level. Contineu sliding scale insulin. Resume TF. Continue to monitor. (7) Carotid disease, bilateral: Qualifiers: Carotid artery disease type: occlusion Qualified Code(s): I65.23 - Occlusion and stenosis of bilateral carotid arteries Code
--- NOTE | 2019-09-25 14:06 | WPDHOLTEREM ---
Holter/Event Monitor Holter/Event Monitor Date of procedure: 09/25/19 Procedure Type: 24 hour Holter monitor Diagnosis: Multiple bilateral strokes, probably cardioembolic, rule out paroxysmalAFib Indications: Multiple bilateral strokes Image/Tracing Quality: good Finding: The patient was monitored for 48 hours. The underlying rhythm was sinus with a minimum heart rate of 56 beats per minute, average heart of 75 beats per minute and maximum heart rate 100 beats per minute. There were 5 PVCs and 26 APCs with one 6 beat run of SVT. No atrial fibrillation, ventricular tachycardia, or AV block was seen. No symptoms were recorded. . Conclusion: Unremarkable Holter monitor. Rare APCs and PVCs, 6 beat run of SVT. No atrial fibrillation
[2019-09-25] MEDS: carvediloL 25 MG TABLET FEED TUBE ×2 (15:35→20:35)
[2019-09-25 17:22] LABS: Glucose Point of Care 89 (65-105)
[2019-09-25 17:27] LABS: Partial Thromboplastin Time 79.6 SECONDS (22.3-36.8)
[2019-09-25] MEDS: ATORVASTATIN 40 MG TABLET 80 MG FEED TUBE (20:34)
[2019-09-25 23:20] LABS: Partial Thromboplastin Time 75.4 SECONDS (22.3-36.8)
[2019-09-26] VITALS (15 sets, daily range): BP systolic 153–183; BP diastolic 88–105; PULSE 72–83; RESP 16–20; TEMP 36.1–36.7; O2SAT 97–100
[2019-09-26 00:16] LABS: Glucose Point of Care 100 (65-105)
[2019-09-26] MEDS: SODIUM CHLORIDE 0.9% IV 1,000 ML 120 ML IV CONT (04:25)
[2019-09-26 04:57] LABS: Basophils Percent Auto 0.4 % (0.2-1.2); Eosinophils Absolute Auto 0.1 K/mm3 (0-0.3); Eosinophils Percent Auto 1.8 % (0-4.4); Hematocrit 43.8 % (42.0-52.0); Immature Granulocyte Absolute 0.01 K/mm3 (0.00-0.031); Immature Granulocyte Percent A 0.2 % (0-0.5); Lymphocytes Absolute Auto 2.25 K/mm3 (0.9-3.2); Lymphocytes Percent Auto 39.8 % (18.3-44.2); Mean Corpuscular Volume 81.4 fl (80-100); Mean Platelet Volume 11.2 fl (7.4-10.4); Monocytes Absolute Auto 0.4 K/mm3 (0.1-0.6); Monocytes Percent Auto 7.6 % (2.6-8.5); Neutrophils Absolute Auto 2.8 K/mm3 (1.3-6.7); Neutrophils Percent Auto 50.2 % (45.5-73.1); Platelet Count Result 190 k/mm3 (150-375); Red Blood Count 5.38 M/mm3 (4.6-6.20); Red Cell Distribution Width 12.9 % (11.5-14.5); White Blood Count 5.7 K/mm3 (4.5-10.0)
[2019-09-26 05:33] LABS: Alanine Aminotransferase 16 U/L (4-50); Albumin Level 3.3 g/dL (3.5-5.1); Alkaline Phosphatase 60 U/L (38-126); Aspartate Amino Transferase 18 U/L (17-59); Bilirubin,Total 0.5 mg/dL (0.2-1.3); Blood Urea Nitrogen 18 mg/dL (9-20); Calcium 8.7 mg/dL (8.4-10.2); Carbon Dioxide 27 mmol/L (22-30); Chloride 107 mmol/L (98-107); Estimated CRCL calculation 90 ml/min; Estimated Glomerular Filt Rate > 60; Glucose 100 mg/dL (75-110); Magnesium 1.8 mg/dL (1.6-2.3); Phosphorus 3.2 mg/dL (2.5-4.5); Potassium 4.1 mmol/L (3.4-5.0); Sodium 137 mmol/L (137-145)
[2019-09-26] MEDS: HEPARIN SODIUM 5,000 UNITS/ML VIAL 3500 UNITS IV PUSH (05:37)
--- NOTE | 2019-09-26 09:43 | WPDNEUROPN ---
Progress Note: A&P Assessment and Plan (1) Left ventricular hypertrophy: Code(s): I51.7 - Cardiomegaly Status: Acute (2) Aspiration pneumonitis: Code(s): J69.0 - Pneumonitis due to inhalation of food and vomit Status: Acute (3) DVT prophylaxis: Code(s): Z29.9 - Encounter for prophylactic measures, unspecified Status: Acute (4) Acute renal failure: Qualifiers: Acute renal failure type: unspecified Qualified Code(s): N17.9 - Acute kidney failure, unspecified Code(s): N17.9 - Acute kidney failure, unspecified Status: Acute (5) Dysphagia: Qualifiers: Dysphagia type: unspecified Qualified Code(s): R13.10 - Dysphagia, unspecified Code(s): R13.10 - Dysphagia, unspecified Status: Acute (6) Embolic stroke: Qualifiers: Laterality of affected vessel: bilateral Code(s): I63.9 - Cerebral infarction, unspecified Status: Acute (7) Carotid disease, bilateral: Qualifiers: Carotid artery disease type: occlusion Qualified Code(s): I65.23 - Occlusion and stenosis of bilateral carotid arteries Code(s): I77.9 - Disorder of arteries and arterioles, unspecified Status: Acute (8) Hypertension: Qualifiers: Hypertension type: unspecified Qualified Code(s): I10 - Essential (primary) hypertension Code(s): I10 - Essential (primary) hypertension Status: Acute (9) Blindness: Qualifiers: Right eye visual impairment category: right - unspecified blindness Left eye visual impairment category: left - normal vision Qualified Code(s): H54.40 - Blindness, one eye, unspecified eye Code(s): H54.7 - Unspecified visual loss Status: Acute (10) Diabetes mellitus with neuropathy: Qualifiers: Diabetes mellitus type: type 2 Diabetes mellitus senior living insulin use: without senior living use Qualified Code(s): E11.40 - Type 2 diabetes mellitus with diabetic neuropathy, unspecified Code(s): E11.40 - Type 2 diabetes mellitus with diabetic neuropathy, unspecified Status: Acute (11) Ataxia: Code(s): R27.0 - Ataxia, unspecified Status: Acute (12) Left-sided sensory deficit present: Code(s): R44.9 - Unspecified symptoms and signs involving general sensations and perceptions Status: Acute (13) Right pontine stroke: Code(s): I63.50 - Cerebral infarction due to unspecified occlusion or stenosis of unspecified cerebral artery Status: Acute (14) Cerebellar stroke: Code(s): I63.9 - Cerebral infarction, unspecified Status: Acute (15) Stroke: Qualifiers: CVA mechanism: other Qualified Code(s): I63.89 - Other cerebral infarction Code(s): I63.9 - Cerebral infarction, unspecified Status: Acute Additional Plan stable can be evaluated for rehab Review of Systems Review of Systems: All systems reviewed & are unremarkable except as noted in HPI and below Exam Const: General: cooperative and no acute distress Orientation/consciousness: oriented to person and oriented to place Limitations: no limitations HENMT: Head: normal to inspection Ears: hearing grossly normal bilaterally General nose exam: Normal external nose present Face and sinus: normal facial exam Mouth: Yes Normal oral and palatal mucosa present Eyes: Visual Palmer: abnormal by confrontation Resp: Effort & Inspection: able to speak in complete sentences Auscultation: clear to auscultation bilaterally GI: Auscultation: normal bowel sounds Neuro: General: oriented to person, oriented to place and moves all extremities Cranial nerves: Yes Midline tongue present and Yes Normal hearing present Speech: normal speech Gait exam (Neuro): Unable to assess gait Motor exam (neuro): Abnormal motor strength present Sensory Exam: Sensory deficit (Neuro) Psych: Appearance: grossly normal Objective Data Vital Signs Brianna
--- NOTE | 2019-09-26 11:00 | PM.PNCARD ---
Progress Note: A&P Assessment and Plan (1) Embolic stroke: Qualifiers: Laterality of affected vessel: bilateral Code(s): I63.9 - Cerebral infarction, unspecified Status: Acute Assessment and Plan: History of multiple strokes with more strokes noted by MRI on Tuesday, probably cardioembolic. Normal white count and normal sed rate of 17 rule against endocarditis or vasculitis. Blood cultures are negative thus far. STEPHON was unremarkable. The radiologist's MRI interpretation was that these were cardioembolic strokes but he also said: There are multiple scattered periventricular and subcortical T2 hyperintensities, a non-specific finding with differential diagnosis including premature chronic small vessel ischemic disease (especially if the patient has cardiovascular risk factors), migraine headaches, demyelinating disease such as multiple sclerosis or acute disseminated encephalomyelitis (ADEM), vasculopathy, lyme's disease or reactive astrocytosis (gliosis) secondary to nonspecific etiology. Perhaps evaluate some of these other etiologies? Currently on a heparin drip. I favor continuing an anticoagulant and anti-platelet agent, such as Xarelto plus Plavix.. Will DC heparin and start Xarelto which the pharmacy says can be crushed and put down the Dobbhoff. Will see if Xarelto is covered by his insurance Hopefully return to rehab soon. (2) Hypertension: Qualifiers: Hypertension type: unspecified Qualified Code(s): I10 - Essential (primary) hypertension Code(s): I10 - Essential (primary) hypertension Status: Acute Assessment and Plan: Allowing for permissive hypertension. Started back on carvedilol 25 mg b.i.d. yesterday. (3) Aspiration pneumonitis: Code(s): J69.0 - Pneumonitis due to inhalation of food and vomit Status: Acute Assessment and Plan: There is concerned he is aspirating and antibiotics were started for suspected aspiration pneumonitis. (4) Left ventricular hypertrophy: Code(s): I51.7 - Cardiomegaly Status: Acute Assessment and Plan: Has severe LVH, probably hypertensive, cannot rule out a hypertrophic nonobstructive cardiomyopathy, per echo from [facility] (5) Diabetes mellitus with neuropathy: Qualifiers: Diabetes mellitus type: type 2 Diabetes mellitus [facility] insulin use: without [facility] use Qualified Code(s): E11.40 - Type 2 diabetes mellitus with diabetic neuropathy, unspecified Code(s): E11.40 - Type 2 diabetes mellitus with diabetic neuropathy, unspecified Status: Acute Assessment and Plan: Also has some chronic kidney disease which has improved. Subjective Date/time seen: 09/26/19 11:00 Interval history: Follow up for: History of 3 strokes in August 2019. New bilateral embolic CVA 09/23/2019. Uncontrolled hypertension, diabetes and hyperlipidemia. Right carotid disease. Date of Service: 09/26/2019 STEPHON yesterday showed no cardiac source of emboli and a normal aorta. No shunt. He does have severe LVH and tells me his blood pressure has intermittently been poorly controlled because of lack of insurance. Mr. Templeton is doing very well today. He was up walking in the halls with his walker and physical therapy, and sitting up in the chair. His main complaint is drooling from the right side of his mouth but he is feeling better. Still getting tube feedings, on heparin. Review of Systems Constitutional: Constitutional: Reports fatigue ENT: Reports dysphagia and Denies epistaxis Cardiovascular: Cardiovascular: Denies chest pain, Denies pedal edema and Denies lightheadedness Respiratory: Respiratory: Denies chest congestion, Denies cough, Denies dyspnea and Denies dyspnea on exertion Gastrointestinal: Gastrointestinal: Denies abdominal pain Genitour
[2019-09-26] MEDS: carvediloL 25 MG TABLET FEED TUBE ×2 (11:03→21:14)
[2019-09-26] MEDS: HEPARIN SOD/D5W 100 UNITS/ML 25,000 UNITS/250 ML BAG 11 UNITS IV CONT (11:05)
--- NOTE | 2019-09-26 11:58 | PCSTNOTE ---
Order received for swallow eval and comm eval. Swallow eval has been changed to a MBS and will be completed as a priority before communication evaluation on this date.
[2019-09-26 12:19] LABS: Partial Thromboplastin Time 106.4 SECONDS (22.3-36.8)
[2019-09-26 12:38] LABS: Glucose Point of Care 139 (65-105)
--- NOTE | 2019-09-26 13:54 | PM.IMPN ---
Progress Note: A&P Assessment and Plan (1) Embolic stroke: Qualifiers: Laterality of affected vessel: bilateral Code(s): I63.9 - Cerebral infarction, unspecified Status: Acute Assessment and Plan: MRI brain done on 09/22/2019 with moderate-sized right cerebellar, brachium pontis and leo subacute infarctions already known but also approximately a dozen scattered periventricular acute infarctions likely embolic source (other potential etiologies listed in the report). Neurology and cardiology consulted and appreciate their input. STEPHON performed but not showing any clear etiology for his CVAs. ESR normal. COVID-19 testing negative. Telemetry showing sinus rhythm. Continue PT/OT/ST. Heparin changed to Xarelto. May neeed to change back if he fails his swallow study. Will add CRP and CELINE. Renal function better - consider cerebral angiogram. (2) Dysphagia: Qualifiers: Dysphagia type: unspecified Qualified Code(s): R13.10 - Dysphagia, unspecified Code(s): R13.10 - Dysphagia, unspecified Status: Acute Assessment and Plan: MBS completed on 09/21/2019 with moderate anterior leakage and premature spillage posteriorly as well as slow oral transit time and delayed swallows, [id number]-[id number] aspiration on trials with thin liquids. Recommendation for non oral feedings at this time. Patient did have Dobbhoff placed while in [facility] with tube feeding started. Tube feedings placed on hold 09/23/19 but resumed 09/[address] to evaluate today with MBS. Continue to monitor. Aspiration precautions. Elevate head of bed. Up to the chair. (3) Aspiration pneumonitis: Code(s): J69.0 - Pneumonitis due to inhalation of food and vomit Status: Acute Assessment and Plan: Chest x-ray done on 09/23/2019 with this admission showing patchy infiltrate in lower lung zones bilaterally. IV Zosyn started to cover for possible aspiration. WBC remains normal, no fevers and BCx remain negative. Not requiring O2. Will stop abx today. Repeat CXR if he becomes symptomatic.. (4) Acute renal failure: Qualifiers: Acute renal failure type: unspecified Qualified Code(s): N17.9 - Acute kidney failure, unspecified Code(s): N17.9 - Acute kidney failure, unspecified Status: Acute Assessment and Plan: Creatinine back down to normal at 1.1 today. Will continue to monitor for now. (5) Hypertension: Qualifiers: Hypertension type: unspecified Qualified Code(s): I10 - Essential (primary) hypertension Code(s): I10 - Essential (primary) hypertension Status: Acute Assessment and Plan: Blood pressure reviewed on 09/26/2019. BP elevated at times which is acceptable with acute CVA. Will continue to allow for permissive HTN and try to avoid hypotension. Continue Coreg. IV hydralazine available if needed. Amlodipine, hydrochlorothiazide and lisinopril all remain on hold. Continue to monitor. (6) Diabetes mellitus with neuropathy: Qualifiers: Diabetes mellitus intermediate frame tender insulin use: without intermediate frame tender use Diabetes mellitus type: type 2 Qualified Code(s): E11.40 - Type 2 diabetes mellitus with diabetic neuropathy, unspecified Code(s): E11.40 - Type 2 diabetes mellitus with diabetic neuropathy, unspecified Status: Acute Assessment and Plan: A1c 11.4 indicating poor control prior to recent events. Glucose reviewed on 09/26/2019. Glucose well controlled. Not on medication at this time but was previously on metformin which will continue to hold. Continue sliding scale insulin. Continue to monitor. (7) Carotid disease, bilateral: Qualifiers: Carotid artery disease type: occlusion Qualified Code(s): I65.23 - Occlusion and stenosis of bilateral carotid arteries Code(s): I77.9 - Disorder of arteries and arterioles, unspecified Status: Acute Asse
[2019-09-26 16:44] LABS: Glucose Point of Care 160 (65-105)
[2019-09-26] MEDS: RIVAROXABAN 20 MG TABLET FEED TUBE (17:02)
[2019-09-26] MEDS: ATORVASTATIN 40 MG TABLET 80 MG FEED TUBE (21:14)
[2019-09-26 23:55] LABS: Glucose Point of Care 142 (65-105)
[2019-09-27] VITALS (12 sets, daily range): BP systolic 129–170; BP diastolic 63–92; PULSE 74–88; RESP 18–22; TEMP 35.9–36.6; O2SAT 96–100
[2019-09-27 05:08] LABS: Blood Urea Nitrogen 12 mg/dL (9-20); CRP 5.4 mg/dL (<1.0); Calcium 8.9 mg/dL (8.4-10.2); Carbon Dioxide 28 mmol/L (22-30); Chloride 107 mmol/L (98-107); Estimated CRCL calculation 99 ml/min; Estimated Glomerular Filt Rate > 60; Glucose 156 mg/dL (75-110); Potassium 4.1 mmol/L (3.4-5.0); Sodium 138 mmol/L (137-145)
[2019-09-27 05:38] LABS: Glucose Point of Care 158 (65-105)
[2019-09-27 06:00] LABS: Hepatitis B Surface Antigen Negative (Negative)
[2019-09-27 06:17] LABS: Hepatitis B Surface Anti Res Negative; Hepatitis C Virus Antibody Negative (Negative)
[2019-09-27] MEDS: carvediloL 25 MG TABLET FEED TUBE (09:36)
[2019-09-27] MEDS: CLOPIDOGREL BISULFATE 75 MG TABLET FEED TUBE (09:36)
--- NOTE | 2019-09-27 10:55 | WPDNEUROPN ---
Progress Note: A&P Assessment and Plan (1) Left ventricular hypertrophy: Code(s): I51.7 - Cardiomegaly Status: Acute (2) Aspiration pneumonitis: Code(s): J69.0 - Pneumonitis due to inhalation of food and vomit Status: Acute (3) DVT prophylaxis: Code(s): Z29.9 - Encounter for prophylactic measures, unspecified Status: Acute (4) Acute renal failure: Qualifiers: Acute renal failure type: unspecified Qualified Code(s): N17.9 - Acute kidney failure, unspecified Code(s): N17.9 - Acute kidney failure, unspecified Status: Acute (5) Dysphagia: Qualifiers: Dysphagia type: unspecified Qualified Code(s): R13.10 - Dysphagia, unspecified Code(s): R13.10 - Dysphagia, unspecified Status: Acute (6) Embolic stroke: Qualifiers: Laterality of affected vessel: bilateral Code(s): I63.9 - Cerebral infarction, unspecified Status: Acute (7) Carotid disease, bilateral: Qualifiers: Carotid artery disease type: occlusion Qualified Code(s): I65.23 - Occlusion and stenosis of bilateral carotid arteries Code(s): I77.9 - Disorder of arteries and arterioles, unspecified Status: Acute (8) Hypertension: Qualifiers: Hypertension type: unspecified Qualified Code(s): I10 - Essential (primary) hypertension Code(s): I10 - Essential (primary) hypertension Status: Acute (9) Blindness: Qualifiers: Right eye visual impairment category: right - unspecified blindness Left eye visual impairment category: left - normal vision Qualified Code(s): H54.40 - Blindness, one eye, unspecified eye Code(s): H54.7 - Unspecified visual loss Status: Acute (10) Diabetes mellitus with neuropathy: Qualifiers: Diabetes mellitus type: type 2 Diabetes mellitus retirement insulin use: without retirement use Qualified Code(s): E11.40 - Type 2 diabetes mellitus with diabetic neuropathy, unspecified Code(s): E11.40 - Type 2 diabetes mellitus with diabetic neuropathy, unspecified Status: Acute (11) Ataxia: Code(s): R27.0 - Ataxia, unspecified Status: Acute (12) Left-sided sensory deficit present: Code(s): R44.9 - Unspecified symptoms and signs involving general sensations and perceptions Status: Acute (13) Right pontine stroke: Code(s): I63.50 - Cerebral infarction due to unspecified occlusion or stenosis of unspecified cerebral artery Status: Acute (14) Cerebellar stroke: Code(s): I63.9 - Cerebral infarction, unspecified Status: Acute (15) Stroke: Qualifiers: CVA mechanism: other Qualified Code(s): I63.89 - Other cerebral infarction Code(s): I63.9 - Cerebral infarction, unspecified Status: Acute Additional Plan much better Review of Systems Review of Systems: All systems reviewed & are unremarkable except as noted in HPI and below Exam Const: General: cooperative, healthy appearing, comfortable, no acute distress and well groomed Nutritional Appearance: average body habitus Orientation/consciousness: oriented to person, oriented to place, oriented to time and patient oriented x3 Eyes: Visual Palmer: abnormal by confrontation Alignment and Position: alignment abnormal and position abnormal Conjunctivae: conjunctival abnormality (right) Neck: Neck: full ROM Resp: Effort & Inspection: normal respiratory effort and able to speak in complete sentences Auscultation: clear to auscultation bilaterally Cardio: Rate: regular rate Rhythm: regular rhythm Neuro: General: patient oriented x3 Motor exam (neuro): Abnormal motor strength present Psych: Appearance: grossly normal Objective Data Vital Signs Vital Signs: Vital Signs - 24 hr 09/26/19 11:03 09/26/19 12:00 09/26/19 14:00 Temperature 36.2 C L Pulse Rate 83 77 77 Respiratory Rate 16 Blood Pressure 153/103 H
--- NOTE | 2019-09-27 11:26 | PM.PNCARD ---
Progress Note: A&P Assessment and Plan (1) Embolic stroke: Qualifiers: Laterality of affected vessel: bilateral Code(s): I63.9 - Cerebral infarction, unspecified Status: Acute Assessment and Plan: History of multiple strokes with more strokes noted by MRI on Tuesday, probably cardioembolic. Normal white count and normal sed rate of 17 rule against endocarditis or vasculitis. Blood cultures are negative. STEPHON was unremarkable. No atrial fibrillation. The radiologist's MRI interpretation was that these were cardioembolic strokes but he also suggested other etiologies. Perhaps evaluate some of these other etiologies? Might have had cerebral angiogram done at [facility]; records may still be in [facility]. Recommend anti-platelet agent and anticoagulation. Currently anticoagulated with Xarelto, which the pharmacy can be crushed and put through the Dobbhoff. Will see if Xarelto is covered by his insurance Hopefully return to rehab soon. (2) Hypertension: Qualifiers: Hypertension type: unspecified Qualified Code(s): I10 - Essential (primary) hypertension Code(s): I10 - Essential (primary) hypertension Status: Acute Assessment and Plan: Allowing for permissive hypertension. Started back on carvedilol 25 mg b.i.d. (3) Aspiration pneumonitis: Code(s): J69.0 - Pneumonitis due to inhalation of food and vomit Status: Acute Assessment and Plan: Taking antibiotics suspected aspiration pneumonitis. Unfortunately failed his swallow study. (4) Left ventricular hypertrophy: Code(s): I51.7 - Cardiomegaly Status: Acute Assessment and Plan: Has severe LVH, probably hypertensive, cannot rule out a hypertrophic nonobstructive cardiomyopathy, per echo from [facility]. Recommend blood pressure control. (5) Diabetes mellitus with neuropathy: Qualifiers: Diabetes mellitus type: type 2 Diabetes mellitus buttermaker continuous churn insulin use: without buttermaker continuous churn use Qualified Code(s): E11.40 - Type 2 diabetes mellitus with diabetic neuropathy, unspecified Code(s): E11.40 - Type 2 diabetes mellitus with diabetic neuropathy, unspecified Status: Acute Assessment and Plan: Also has some chronic kidney disease which has improved. Subjective Date/time seen: 09/27/19 11:26 Interval history: Follow up for: History of 3 strokes in August 2019. New bilateral embolic CVA 09/23/2019. Uncontrolled hypertension, diabetes and hyperlipidemia. Right carotid disease. 09/26/2019 visit: STEPHON yesterday showed no cardiac source of emboli and a normal aorta. No shunt. He does have severe LVH and tells me his blood pressure has intermittently been poorly controlled because of lack of insurance. Mr. Templeton is doing very well today. He was up walking in the halls with his walker and physical therapy, and sitting up in the chair. His main complaint is drooling from the right side of his mouth but he is feeling better. Still getting tube feedings, on heparin. Date of service: 09/27/2019 Yesterday changed heparin to Xarelto, which can be crushed and put through a Dobhoff. Unfortunately he failed a swallow study and is expected to be at high risk for aspiration. Leans to the right when he walks. Hopes to get back to rehab. No chest pain, dizziness or shortness of breath. No atrial fibrillation on telemetry. Review of Systems Constitutional: Constitutional: Reports weakness ENT: Reports dysphagia Cardiovascular: Cardiovascular: Denies chest pain, Denies pedal edema, Denies leg edema and Denies lightheadedness Respiratory: Respiratory: Denies chest congestion, Denies dyspnea and Denies dyspnea on exertion Gastrointestinal: Gastrointestinal: Denies abdominal pain Genitourinary: Genitourinary: Denies dysuria Musculoskeletal: Musculo
[2019-09-27 12:24] LABS: Glucose Point of Care 194 (65-105)
--- NOTE | 2019-09-27 14:14 | PM.DS ---
DS: Diagnosis Admitting Diagnosis Admitting Diagnosis: Cerebral infarction, unspecified Discharge Diagnosis (1) Embolic stroke: Qualifiers: Laterality of affected vessel: bilateral Code(s): I63.9 - Cerebral infarction, unspecified Status: Acute Assessment and Plan: MRI brain done on 09/22/2019 with moderate-sized right cerebellar, brachium pontis and leo subacute infarctions already known but also approximately a dozen scattered periventricular acute infarctions likely embolic source (other potential etiologies listed in the report). Neurology and cardiology consulted and appreciate their input. STEPHON performed but not showing any clear etiology for his CVAs. ESR normal. COVID-19 testing negative. Telemetry showing sinus rhythm. Continue PT/OT/ST. Heparin changed to Xarelto. May neeed to change back if he fails his swallow study. Will add CRP and CELINE. Renal function better - consider cerebral angiogram. (2) Dysphagia: Qualifiers: Dysphagia type: unspecified Qualified Code(s): R13.10 - Dysphagia, unspecified Code(s): R13.10 - Dysphagia, unspecified Status: Acute Assessment and Plan: MBS completed on 09/21/2019 with moderate anterior leakage and premature spillage posteriorly as well as slow oral transit time and delayed swallows, [id number]-jl-[id number] aspiration on trials with thin liquids. Recommendation for non oral feedings at this time. Patient did have Dobbhoff placed while in [facility] with tube feeding started. Tube feedings placed on hold 09/23/19 but resumed 09/[address] to evaluate today with MBS. Continue to monitor. Aspiration precautions. Elevate head of bed. Up to the chair. (3) Aspiration pneumonitis: Code(s): J69.0 - Pneumonitis due to inhalation of food and vomit Status: Acute Assessment and Plan: Chest x-ray done on 09/23/2019 with this admission showing patchy infiltrate in lower lung zones bilaterally. IV Zosyn started to cover for possible aspiration. WBC remains normal, no fevers and BCx remain negative. Not requiring O2. Will stop abx today. Repeat CXR if he becomes symptomatic.. (4) Acute renal failure: Qualifiers: Acute renal failure type: unspecified Qualified Code(s): N17.9 - Acute kidney failure, unspecified Code(s): N17.9 - Acute kidney failure, unspecified Status: Acute Assessment and Plan: Creatinine back down to normal at 1.1 today. Will continue to monitor for now. (5) Hypertension: Qualifiers: Hypertension type: unspecified Qualified Code(s): I10 - Essential (primary) hypertension Code(s): I10 - Essential (primary) hypertension Status: Acute Assessment and Plan: Blood pressure reviewed on 09/26/2019. BP elevated at times which is acceptable with acute CVA. Will continue to allow for permissive HTN and try to avoid hypotension. Continue Coreg. IV hydralazine available if needed. Amlodipine, hydrochlorothiazide and lisinopril all remain on hold. Continue to monitor. (6) Diabetes mellitus with neuropathy: Qualifiers: Diabetes mellitus alf insulin use: without alf use Diabetes mellitus type: type 2 Qualified Code(s): E11.40 - Type 2 diabetes mellitus with diabetic neuropathy, unspecified Code(s): E11.40 - Type 2 diabetes mellitus with diabetic neuropathy, unspecified Status: Acute Assessment and Plan: A1c 11.4 indicating poor control prior to recent events. Glucose reviewed on 09/26/2019. Glucose well controlled. Not on medication at this time but was previously on metformin which will continue to hold. Continue sliding scale insulin. Continue to monitor. (7) Carotid disease, bilateral: Qualifiers: Carotid artery disease type: occlusion Qualified Code(s): I65.23 - Occlusion and stenosis of bilateral carotid arteries Code(s): I77.9 - Disorder
[2019-09-27] MEDS: RIVAROXABAN 20 MG TABLET FEED TUBE (16:11)
[2019-10-01 02:22] LABS: Anti Cardio Antibody IgM <12 MPL (<=12); Anti Cardiolipin Antibody IgA <11 APL (<=11); Anti Cardiolipin Antibody IgG <14 GPL (<=14)
[2019-10-01 04:21] LABS: Hepatitis B Core Ab Total Nonreactive (Nonreactive)
[2019-10-02 13:07] LABS: Lyme Disease Ab (IgM), Blot Negative (Negative); Lyme Disease Ab(IgG), Blot Negative (Negative)
[2019-10-02 20:05] LABS: Lupus dRVVT 1:1 Mix Interpreta Not Indicated; Lupus dRVVT Screen 41 sec (<=45); PTT-LA Screen 40 sec (<=40)
== END 2019-09-27 16:23 | DRG 64 ==
PROVIDERS: Hospitalist; Internal Medicine Cardiovascular Disease; Admitting Provider Family Medicine; PCP Family Medicine; Visit Provider Internal Medicine
PROC: B24BZZ4 Ultrasonography of Heart with Aorta, Transesophageal (ICD-10-PCS; CPT 93312; principal; 2019-09-25 10:00)
DX: I63.441 Cerebral infarction due to embolism of right cerebellar artery (principal); J69.0 Pneumonitis due to inhalation of food and vomit; N17.9 Acute kidney failure, unspecified; I69.354 Hemiplegia and hemiparesis following cerebral infarction affecting left non-dominant side; Z20.828 Contact with and (suspected) exposure to other viral communicable diseases; R27.0 Ataxia, unspecified; H54.7 Unspecified visual loss; I51.7 Cardiomegaly; R13.10 Dysphagia, unspecified; E11.42 Type 2 diabetes mellitus with diabetic polyneuropathy; I10 Essential (primary) hypertension; I65.23 Occlusion and stenosis of bilateral carotid arteries; I77.9 Disorder of arteries and arterioles, unspecified; I69.392 Facial weakness following cerebral infarction; I69.328 Other speech and language deficits following cerebral infarction; Z87.891 Personal history of nicotine dependence; Z79.02 Long term (current) use of antithrombotics/antiplatelets; Z79.82 Long term (current) use of aspirin; E66.9 Obesity, unspecified; Z68.38 Body mass index [BMI] 38.0-38.9, adult
CPT/HCPCS: 36415; 71045; 80048; 80053; 83036; 83735; 84100; 84443; 85025; 85027; 85610; 85613; 85652; 85730; 86038; 86140; 86147; 86617; 86704; 86706; 86803; 87340; 87635; 92526; 92611; 93005; 93312; 93320; 93325; 97110; 97116; 97162; 97166; 97530; 97535; A9270; J1644; J2001; J2543; J2704; J7030; J7040; U0003

== ENCOUNTER 2019-09-27 16:23 | IRF | payer BC, SELFPAY ==
--- NOTE | ~2019-09-27 | XR_ITS ---
XR repositioning feeding tube DATE: 10/03/2019 14:30 INDICATION: Unable to remove Dobbhoff tube TECHNIQUE: Portable crosstable lateral of the face and neck. Portable AP and chest views COMPARISON: None FINDINGS: The distal weighted portion of the Dobbhoff tube is situated on the left at the junction of the nasopharynx and posterior nasal cavity. The lungs are clear. Normal heart size. No hilar or mediastinal enlargement. No pleural effusion or p ulmonary vascular congestion. No prevertebral soft tissue swelling is evident in the cervical region. No pneumothorax or pneumomediastinum or subcutaneous emphysema of the neck. Impression: Dobbhoff tube in left posterior nasal cavity/nasopharynx Reviewed, dictated and finalized at [facility]. Reviewed, dictated and finalized at [facility]. Impression: Dobbhoff tube in left posterior nasal cavity/nasopharynx
--- NOTE | ~2019-09-27 | XR_ITS ---
EXAMINATION: XR barium swallow modified DATE: 10/03/2019 10:44 INDICATION: Dysphagia. TECHNIQUE: The patient was given barium-containing material of multiple consistencies to swallow by rosita tao speech pathologist while I performed fluoroscopy. Dose-area product was 2.82 Gy-cm2. 2.3 minutes fluoroscopy time FINDINGS: Oral Stage: Slow mastication, brief premature spillage into pharynx with liquids Pharyngeal Phase: Trace laryngeal penetration; no aspiration. Vallecular and piriform sinus residue, which clears Cervical/Esophageal Stage: Within functional limits IMPRESSION: Modified esophagram findings as above. Please refer to the speech therapy report for [facility] recommendations. Reviewed, dictated and finalized at [facility]. Reviewed, dictated and finalized at [facility]. IMPRESSION: Modified esophagram findings as above. Please refer to the speech t herapy report for specific recommendations.
[2019-09-27 16:30] VITALS: BP 131/98; PULSE 81; RESP 18; TEMP 36.9; O2SAT 99; BMI 38.2
--- NOTE | 2019-09-27 16:39 | PC.NURSE ---
This patient, West Templeton, was admitted to [facility] Room 220-01. Patient/family oriented to hospital policies and general routines including ID bracelet, bed and alarms, visiting hours, pain management, procedures, bathroom and other care routines, personal items, smoking policy, room service/diet, and visiting hours. Valuables list has been completed. Information on how to activate the Rapid Response Team has been discussed. Patient/Family are encouraged to report perceived risks to care and to ask questions if they do not understand what they are told or what they should do.
[2019-09-27 17:36] LABS: Glucose Point of Care 125 (65-105)
[2019-09-27] MEDS: ATORVASTATIN 40 MG TABLET 80 MG PO (20:44)
[2019-09-27 20:45] VITALS: PULSE 78
[2019-09-27] MEDS: carvediloL 25 MG TABLET FEED TUBE (20:45)
[2019-09-27 22:00] VITALS: BP 153/83; PULSE 83; RESP 18; TEMP 37.3; O2SAT 98
[2019-09-28 05:10] LABS: Basophils Percent Auto 0.3 % (0.2-1.2); Eosinophils Absolute Auto 0.1 K/mm3 (0-0.3); Eosinophils Percent Auto 2.3 % (0-4.4); Hematocrit 44.3 % (42.0-52.0); Hemoglobin 14.5 g/dL (14.0-18.0); Immature Granulocyte Absolute 0.02 K/mm3 (0.00-0.031); Immature Granulocyte Percent A 0.3 % (0-0.5); Lymphocytes Absolute Auto 1.31 K/mm3 (0.9-3.2); Lymphocytes Percent Auto 21.9 % (18.3-44.2); Mean Corpuscular HGB Conc 32.7 g/dl (32-36); Mean Corpuscular Hemoglobin 26.7 pg (26-34); Mean Corpuscular Volume 81.4 fl (80-100); Mean Platelet Volume 11.2 fl (7.4-10.4); Monocytes Absolute Auto 0.5 K/mm3 (0.1-0.6); Monocytes Percent Auto 7.5 % (2.6-8.5); Neutrophils Absolute Auto 4.1 K/mm3 (1.3-6.7); Neutrophils Percent Auto 67.7 % (45.5-73.1); Platelet Count Result 182 k/mm3 (150-375); Red Blood Count 5.44 M/mm3 (4.6-6.20); Red Cell Distribution Width 13.1 % (11.5-14.5)
[2019-09-28 05:28] LABS: Blood Urea Nitrogen 13 mg/dL (9-20); Calcium 9.2 mg/dL (8.4-10.2); Carbon Dioxide 28 mmol/L (22-30); Chloride 106 mmol/L (98-107); Estimated CRCL calculation 99 ml/min; Estimated Glomerular Filt Rate > 60; Glucose 184 mg/dL (75-110); Potassium 4.1 mmol/L (3.4-5.0); Sodium 139 mmol/L (137-145)
[2019-09-28 06:00] VITALS: BP 149/92; PULSE 82; RESP 18; TEMP 36.9; O2SAT 98
[2019-09-28 06:55] LABS: Glucose Point of Care 196 (65-105)
--- NOTE | 2019-09-28 10:00 | WPDREHABHP ---
H&P: HPI History of Present Illness Chief complaint: cva Narrative: West Templeton is a 44 year old male HISTORY OF PRESENT ILLNESS: The patient's primary rehab impairment category is stroke The etiologic diagnosis is acute bihemispheric embolic strokes superimposed on the brainstem stroke I saw this patient [id number] on September 28, 2019 10 am this is a 44-year-old Afro-[place] gentleman with a past medical history of uncontrolled hypertension, diabetes mellitus with hyperglycemia and 3 prior strokes in August who originally was admitted to the rehabilitation [facility] on September 17, 2019 with acute infarcts in the right cerebellar hemisphere in the PICA territory and a punctate focus in the right dorsal leo. During his stay on a [facility] the patient continued to have increased difficulty with swallow function and increased weakness. Modified barium swallow showed moderate anteriorly cage in premature spillage posteriorly sole oral transit time delayed swallows and cacj-xe-khsnsyap aspiration on trials with thin liquids. Speech therapy recommended a non oral feedings and the patient had Dobbhoff placed while in the [facility] with the feedings started. On September 22, 2019 the brain MRI showed moderate-sized right cerebellar Brink cap pontis and Leo subacute functions which were previously noted and already known but also approximately a dozen scattered periventricular acute infarctions likely embolic in source. Neurology in the cardiology were involved and the cardiology recommended further monitoring to rule out atrial fibrillation and cardiac embolic source. The past the patient was transferred to IMU telemetry on September 23, 2019 and is was started on IV heparin for anticoagulation. The chest x-ray showed patchy infiltrate and atelectasis in the lower lung zones with possible aspiration pneumonitis. Patient was placed on IV Zosyn. STEPHON was completed but did not show any clear etiology for his CVAs. Telemetry shows sinus rhythm. An other modified barium swallow was completed on September 25 and showed moderately severe dysphagia crit tries by the moderate to marked degree of the pharyngeal residual and overall an ЕЛЕНА weakness. The patient continues to have a Dobbhoff feeding tube placed it is felt that the patient was and has significant potential total to oral intake possibly within 10 to 14 days with dysphagia therapy. Physical examination continues to reveal impaired gross most control dysarthria ataxia dysphagia aspiration pneumonitis impaired balance and a functional decline in ADLs. The patient will be discharged to the rehab on Xarelto Plavix and aspirin. He is awake and alert well oriented time place and person in fact much better than when he left upper floor for the cardiac evaluation and tele the tree Therapy was initiated at the acute care facility and the patient transferred to us from [facility] on September 27, 2019 FALLS OR SURGERIES: The patient has had no major surgeries in the 100 days prior to admission. They had no falls in the past year. They had no falls with injury in the past year. PAST MEDICAL HISTORY: diabetes mellitus with neuropathy blindness in the right eye from several years ago and hypertension and strokes PAST SURGICAL HISTORY: unremarkable SOCIAL HISTORY: the patient lives with significant other and son in a 1 level house level entry. He was completely independent in all ADLs and IADLs less and driving prior. He does not use an assistive device. Prep previously worked at a [employer]. Has a girlfriend and 2 children who were mostly grown he has help at home following rehab. Current everyday smoker. Occasional alcohol use no drug use FAMILY HISTORY: father had stroke, mother has diabetes mellitus type 2, family history of CHF in many family members PRIOR LEVEL OF FUNCTION: Eating was INDEPENDENT Oral Care was INDEPENDENT Toileting Hygiene was INDEPENDENT Shower/Bathing was INDEPENDENT
--- NOTE | 2019-09-28 12:42 | PCSTNOTE ---
Please refer to the Bedside Swallow Evaluation in the EMR.
[2019-09-28 12:51] VITALS: PULSE 82
[2019-09-28] MEDS: carvediloL 25 MG TABLET FEED TUBE ×2 (12:51→21:03)
[2019-09-28] MEDS: CLOPIDOGREL BISULFATE 75 MG TABLET FEED TUBE (12:51)
[2019-09-28 13:35] VITALS: BMI 38.2
[2019-09-28 14:00] VITALS: BP 138/85; PULSE 83; RESP 17; TEMP 36.5; O2SAT 100
--- NOTE | 2019-09-28 14:08 | RPD ---
INDIVIDUALIZED PLAN OF CARE FOR [place] Brief Synthesis of Pre-Admission Screen, Post-Admission Evaluation and Therapy Evaluations: The patient presents to rehab with an acute bilateral embolic stroke. 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 Emotional needs will be monitored as depression is a common sequelae of stroke. The patient needs physician monitoring and treatment of uncontrolled hypertension, uncontrolled hyperglycemia, monitoring for adverse reactions to new medications, monitoring of infection, and pain control. The patient requires nursing services for frequent neuro checks, anticoagulation therapy, medication management and education, pressure relief and skin care management, monitoring of labs, diabetes management and education, and fall/safety precautions. Deficits include: ADLs, Balance, Endurance, Family Training/Education, Mobility, Pain Management, ROM, Safety, Strength, Transfers, and Swallowing. Light Bulb Tester/Case Management for: Discharge Planning and Patient/Family Counseling Physical Therapy: 5 days per week for 60 minutes. Treatments may include: Therapeutic Exercise, Gait Training, Neuromuscular Re-education, Transfer Training, Community Reintegration, Bed Mobility, Patient/Family Education, Wheelchair Mobility Group Therapy/Concurrent Therapy Rationales: -Improve attention span during functional activities in a distracted environment. -Enhance problem solving and/or adequate judgment skills during functional activities in a distracted environment. -Promote increased safety awareness in a distracted environment to reduce fall risk with functional tasks, transfers, and ambulation to allow a more safe, self-sufficient return to the home environment. -Improve dynamic balance skills to promote safety and independence with functional activities in a distracted environment for maximum gain. Occupational Therapy: 5 days per week for 60 minutes. Treatments may include: Therapeutic Exercise, Therapeutic Activity, Cognitive Training, Self-Care Transfer Training, Community Reintegration, Home Management, Patient/Family Education, Wheelchair Mobility Training, Energy Conservation Training Group Therapy/Concurrent Therapy Rationales: -Allow therapist to observe and teach generalization and carry-over of skills learned in individual therapy. -Enhance problem solving and sequencing skills during therapeutic activities in a distracted environment. -Promote increased safety awareness in a realistic setting to reduce fall risk with functional tasks due to visual and verbal distractions. -Increase functional level with ADLs, ADL transfers and use of adaptive equipment through therapeutic activities with others while promoting safety to allow a more safe, self-sufficient return home. Speech Therapy: 5 days per week for 60 minutes. Treatments may include: Dysphasia Therapy, Speech/Language/Communication Therapy, Cognitive Training, Patient/Family Education Group Therapy/Concurrent Therapy - Rationale: -Allow therapist to observe and teach generalization and carry-over of skills learned in individual therapy. -Improve comprehension skills with complex or abstract ideas through discussion in a realistic setting. -Enhance problem solving skills with complex issues during activities in a distracted environment. -Promote increased memory skills and concentration in a distracted environment for a safe transition home. -Improve attention and focus with language/comm
[2019-09-28] MEDS: RIVAROXABAN 20 MG TABLET FEED TUBE (18:11)
[2019-09-28 20:56] VITALS: BP 115/88; PULSE 84; RESP 16; TEMP 36.4; O2SAT 99
[2019-09-28 21:03] VITALS: PULSE 88
[2019-09-28] MEDS: ATORVASTATIN 40 MG TABLET 80 MG PO (21:03)
[2019-09-28 22:14] LABS: Glucose Point of Care 169 (65-105)
[2019-09-29 05:40] VITALS: BP 175/98; PULSE 90; RESP 18; TEMP 36.9; O2SAT 98
[2019-09-29 06:58] LABS: Glucose Point of Care 222 (65-105)
[2019-09-29 08:00] VITALS: PULSE 84; RESP 18
[2019-09-29 10:03] VITALS: PULSE 88
[2019-09-29] MEDS: carvediloL 25 MG TABLET FEED TUBE ×2 (10:03→19:47)
[2019-09-29] MEDS: CLOPIDOGREL BISULFATE 75 MG TABLET FEED TUBE (11:02)
[2019-09-29 12:04] LABS: Glucose Point of Care 175 (65-105)
[2019-09-29 14:00] VITALS: BP 141/93; PULSE 85; RESP 18; TEMP 36.9; O2SAT 99
[2019-09-29 17:10] LABS: Glucose Point of Care 156 (65-105)
--- NOTE | 2019-09-29 17:21 | WPDNEURORHBP ---
Subjective Date/time seen: 09/29/19 17:21 Interval history: this 44-year-old diabetic is admitted on the rehab after being transferred from the IMU where he was started on anticoagulation for recurrent stroke most likely embolic in nature he is improving overall however dysphagia remains a problem his right-sided cerebellar signs on the motor sensory deficit on the left side is also improving Denies any headache nausea vomiting chest pain shortness of breath fever chills sore throat Review of Systems Review of Systems: All systems reviewed & are unremarkable except as noted in HPI and below Functional Status Ambulation Ability Ability to Ambulate 10 Feet: Contact Guard Ability to Ambulate 50 Feet With 2 Turns: Contact Guard Ability to Ambulate 150 Feet: Contact Guard Ambulation Assistive Devices: Walker, Wheeled Transfers Ability Ability to Transfer In/Out of Chair: Contact Guard Exam Const: General: comfortable and no acute distress HENMT: General nose exam: Normal nares present Mouth: Yes moist mucous membranes Eyes: Other: blind in the right eye Neck: Neck: supple and no JVD Resp: Effort & Inspection: normal respiratory effort Auscultation: clear to auscultation bilaterally Cardio: Rate: regular rate Rhythm: regular rhythm GI: GI Palp: Yes Soft to palpation Auscultation: normal bowel sounds Skin: General skin exam: normal color and no rashes or lesions noted Neuro: Other: patient is awake and alert and well oriented time place and person right-sided facial weakness is improving dysphagia it has not improved right-sided cerebellar signs are improving and also all the left-sided deficit along with the improving right facial we Extrem: General: normal to inspection Psych: Mental Status: mental status grossly normal Objective Data Vital Signs Vital Signs: Vital Signs - 24 hr 09/28/19 20:56 09/28/19 21:03 09/29/19 05:40 Temperature 36.4 C L 36.9 C Pulse Rate 84 88 90 Respiratory Rate 16 18 Blood Pressure 115/88 175/98 H Pulse Oximetry 99 98 09/29/19 10:03 09/29/19 14:00 Temperature 36.9 C Pulse Rate 88 85 Respiratory Rate 18 Blood Pressure 141/93 H Pulse Oximetry 99 Intake/Output Intake/Output: Intake & Output 09/26/19 09/27/19 09/28/19 09/29/19 23:59 23:59 23:59 23:59 Intake Total 100 1040 Output Total 1300 800 Balance 100 -260 -800 Meds/Results Medications: Active Medications Generic Name Dose Route Start Last Admin Trade Name Eduardoq PRN Reason Stop Dose Admin Atorvastatin Calcium 80 mg 09/27/19 21:00 09/28/19 21:03 Lipitor PO 80 mg HS ELI Administration Carvedilol 25 mg 09/27/19 21:00 09/29/19 10:03 Coreg FEED TUBE 25 mg Q12HR ELI Administration Clopidogrel Bisulfate 75 mg 09/28/19 09:00 09/29/19 11:02 Plavix FEED TUBE 75 mg DAILY ELI Administration Rivaroxaban 20 mg 09/28/19 17:00 09/28/19 18:11 Xarelto FEED TUBE 20 mg DAILY@1700 ELI Administration Labs Labs: Laboratory Results - last 24 hr 09/28/19 09/29/19 09/29/19 21:15 06:44 11:58 POC Capillary Glucose 169 H 222 H 175 H 09/29/19 17:03 POC Capillary Glucose 156 H Progress Note: A&P Assessment and Plan (1) Left ventricular hypertrophy: Code(s): I51.7 - Cardiomegaly Status: Acute (2) Acute renal failure: Qualifiers: Acute renal failure type: unspecified Qualified Code(s): N17.9 - Acute kidney failure, unspecified Code(s): N17.9 - Acute kidney failure, unspecified Status: Acute (3) Dysphagia: Qualifiers: Dysphagia type: unspecified Qualified Code(s): R13.10 - Dysphagia, unspecified Code(s): R13.10 - Dysphagia, unspecified Status: Acute (4) Embolic stroke: Qualifiers: Laterality of affected vessel: bilateral Code(s): I63.9 - Cerebral infarction, unspecified Status: Acute (5) Carotid disease, bilateral: Qualifiers:
[2019-09-29] MEDS: RIVAROXABAN 20 MG TABLET FEED TUBE (18:06)
[2019-09-29 19:47] VITALS: PULSE 80
[2019-09-29] MEDS: ATORVASTATIN 40 MG TABLET 80 MG PO (19:47)
[2019-09-29 20:10] VITALS: BP 136/89; PULSE 82; RESP 16; TEMP 37.1; O2SAT 99
[2019-09-29 21:25] LABS: Glucose Point of Care 188 (65-105)
[2019-09-30 06:20] VITALS: BP 138/90; PULSE 77; RESP 16; TEMP 36.8; O2SAT 95
[2019-09-30 07:02] LABS: Glucose Point of Care 239 (65-105)
[2019-09-30 08:13] VITALS: PULSE 76
[2019-09-30] MEDS: CLOPIDOGREL BISULFATE 75 MG TABLET FEED TUBE (08:13)
[2019-09-30] MEDS: carvediloL 25 MG TABLET FEED TUBE ×2 (08:13→21:07)
[2019-09-30 08:30] VITALS: PULSE 76; RESP 16; O2SAT 95
[2019-09-30 12:19] LABS: Glucose Point of Care 179 (65-105)
[2019-09-30 14:00] VITALS: BP 130/83; PULSE 76; RESP 18; TEMP 37; O2SAT 100
--- NOTE | 2019-09-30 16:39 | WPDNEURORHBP ---
Subjective Date/time seen: 09/30/19 16:39 Interval history: this 44-year-old Afro-Citizen Of [place] patient is here with the history of previous posterior circulation stroke followed by bihemispheric stroke most likely embolic in nature and is on anticoagulation the main deficit remaining is dysphagia for which he needs modified barium swallow next week rest of the neurological handicaps are improving and he is happy with the care he is receiving he denies any headache nausea vomiting chest pain shortness of breath fever chills or sore throat Review of Systems Review of Systems: All systems reviewed & are unremarkable except as noted in HPI and below Functional Status Ambulation Ability Ability to Ambulate 10 Feet: Contact Guard Ability to Ambulate 50 Feet With 2 Turns: Contact Guard Ability to Ambulate 150 Feet: Contact Guard Ambulation Assistive Devices: Walker, Wheeled Transfers Ability Ability to Transfer In/Out of Chair: Standby Assistance Exam Const: General: comfortable and no acute distress HENMT: General nose exam: Normal nares present Mouth: Yes moist mucous membranes Eyes: Other: blind in the right eye with corneal opacity and also 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 most likely related to hypertensive and diabetes Neck: Neck: supple and no JVD Resp: Effort & Inspection: normal respiratory effort Auscultation: clear to auscultation bilaterally Cardio: Rate: regular rate Rhythm: regular rhythm GI: GI Palp: Yes Soft to palpation Auscultation: normal bowel sounds Skin: General skin exam: normal color and no rashes or lesions noted Neuro: Other: patient's mental status examination is normal right facial weakness is improving the right-sided ataxia is improving and generalized weakness is improving overall picture is of significant improvement comparing to the the previous days when he had to be transferred to IMU further monitoring of his heart Extrem: General: normal to inspection Psych: Mental Status: mental status grossly normal Objective Data Vital Signs Vital Signs: Vital Signs - 24 hr 09/29/19 19:47 09/29/19 20:10 09/30/19 06:20 Temperature 37.1 C 36.8 C Pulse Rate 80 82 77 Respiratory Rate 16 16 Blood Pressure 136/89 138/90 Pulse Oximetry 99 95 09/30/19 08:13 09/30/19 08:30 09/30/19 14:00 Temperature 37.0 C Pulse Rate 76 76 76 Respiratory Rate 16 18 Blood Pressure 130/83 Pulse Oximetry 95 100 Intake/Output Intake/Output: Intake & Output 09/27/19 09/28/19 09/29/19 09/30/19 23:59 23:59 23:59 23:59 Intake Total 100 1040 0 Output Total 1300 1800 Balance 100 -260 -1800 Meds/Results Medications: Active Medications Generic Name Dose Route Start Last Admin Trade Name Guicho PRN Reason Stop Dose Admin Atorvastatin Calcium 80 mg 09/27/19 21:00 09/29/19 19:47 Lipitor PO 80 mg HS ELI Administration Carvedilol 25 mg 09/27/19 21:00 09/30/19 08:13 Coreg FEED TUBE 25 mg Q12HR ELI Administration Clopidogrel Bisulfate 75 mg 09/28/19 09:00 09/30/19 08:13 Plavix FEED TUBE 75 mg DAILY ELI Administration Metformin HCl 500 mg 09/30/19 21:00 Glucophage Xr PO HS ELI Rivaroxaban 20 mg 09/28/19 17:00 09/29/19 18:06 Xarelto FEED TUBE 20 mg DAILY@1700 ELI Administration Labs Labs: Laboratory Results - last 24 hr 09/29/19 09/29/19 09/30/19 17:03 21:17 06:20 POC Capillary Glucose 156 H 188 H 239 H 09/30/19 11:43 POC Capillary Glucose 179 H Progress Note: A&P Assessment and Plan (1) Left ventricular hypertrophy: Code(s): I51.7 - Cardiomegaly Status: Acute (2) Dysphagia: Qualifiers: Dysphagia type: unspecified Qualified Code(s): R13.10 - Dysphagia, unspecified Code(s): R13.10 - Dysphagia, unspecified Status: Acute (3) Embolic stroke: Qualifiers: Laterality of affected vessel: bilateral Code(s): I63.9 - Cerebral infarction, u
[2019-09-30 17:31] LABS: Glucose Point of Care 148 (65-105)
[2019-09-30] MEDS: RIVAROXABAN 20 MG TABLET FEED TUBE (18:28)
[2019-09-30 20:40] LABS: Glucose Point of Care 155 (65-105)
[2019-09-30] MEDS: metFORMIN HCL XR 500 MG TAB.SR.24H PO (21:07)
[2019-09-30] MEDS: ATORVASTATIN 40 MG TABLET 80 MG PO (21:07)
[2019-09-30 22:00] VITALS: BP 141/86; PULSE 77; RESP 17; TEMP 36.5; O2SAT 100
[2019-10-01 05:14] LABS: Blood Urea Nitrogen 19 mg/dL (9-20); Calcium 9.2 mg/dL (8.4-10.2); Carbon Dioxide 32 mmol/L (22-30); Chloride 99 mmol/L (98-107); Estimated CRCL calculation 99 ml/min; Estimated Glomerular Filt Rate > 60; Glucose 177 mg/dL (75-110); Potassium 4.3 mmol/L (3.4-5.0); Sodium 137 mmol/L (137-145)
[2019-10-01 06:00] VITALS: BP 139/84; PULSE 77; RESP 17; TEMP 36.2; O2SAT 97
[2019-10-01 07:00] LABS: Glucose Point of Care 218 (65-105)
[2019-10-01 08:00] VITALS: PULSE 77; RESP 17; O2SAT 97
[2019-10-01 10:02] VITALS: PULSE 77
[2019-10-01] MEDS: carvediloL 25 MG TABLET FEED TUBE ×2 (10:02→21:00)
[2019-10-01] MEDS: CLOPIDOGREL BISULFATE 75 MG TABLET FEED TUBE (10:02)
--- NOTE | 2019-10-01 10:21 | WPDNEURORHBP ---
Subjective Date/time seen: S/p multiple strokes vascular as well as embolic in nature with AF recieving [id number]/18/20 10:21 Review of Systems Review of Systems: All systems reviewed & are unremarkable except as noted in HPI and below Functional Status Ambulation Ability Ability to Ambulate 10 Feet: Contact Guard Ability to Ambulate 50 Feet With 2 Turns: Contact Guard Ability to Ambulate 150 Feet: Contact Guard Ambulation Assistive Devices: Walker, Wheeled Transfers Ability Ability to Transfer In/Out of Chair: Standby Assistance Exam Const: General: cooperative, comfortable and no acute distress Orientation/consciousness: oriented to person, oriented to place and oriented to time HENMT: Head: atraumatic General nose exam: No nasal discharge present Eyes: Visual Palmer: abnormal by confrontation EOM: EOM abnormal Neck: Neck: full ROM Resp: Effort & Inspection: normal respiratory effort and able to speak in complete sentences Auscultation: clear to auscultation bilaterally Cardio: Rhythm: abnormal rhythm GI: Auscultation: normal bowel sounds Neuro: General: patient oriented x3 and moves all extremities Cranial nerves: Yes facial symmetry, Yes Midline tongue present, Yes Normal hearing present, Yes Ability to bilaterally rotate head present and Yes Ability to bilaterally elevate shoulders present Cognition (Neuro): normal cognition Speech: normal speech Gait exam (Neuro): Assisted gait required Motor exam (neuro): Abnormal motor strength present Sensory Exam: Sensory deficit (Neuro) Psych: Appearance: grossly normal Speech and movement: Normal speech and movement present Affect: normal affect Attitude: cooperative Thought process: Normal thought process present Thought content: Yes Normal thought content present Insight: Fair insight present (Psych) Judgement: Fair judgement present (Psych) Objective Data Vital Signs Vital Signs: Vital Signs - 24 hr 09/30/19 14:00 09/30/19 22:00 10/01/19 06:00 Temperature 37.0 C 36.5 C 36.2 C L Pulse Rate 76 77 77 Respiratory Rate 18 17 17 Blood Pressure 130/83 141/86 H 139/84 Pulse Oximetry 100 100 97 10/01/19 10:02 Temperature Pulse Rate 77 Respiratory Rate Blood Pressure Pulse Oximetry Intake/Output Intake/Output: Intake & Output 09/28/19 09/29/19 09/30/19 10/01/19 23:59 23:59 23:59 23:59 Intake Total 1040 0 1405 Output Total 1300 1800 1800 Balance -986 -1800 -796 Meds/Results Medications: Active Medications Generic Name Dose Route Start Last Admin Trade Name Guicho PRN Reason Stop Dose Admin Atorvastatin Calcium 80 mg 09/27/19 21:00 09/30/19 21:07 Lipitor PO 80 mg HS ELI Administration Carvedilol 25 mg 09/27/19 21:00 10/01/19 10:02 Coreg FEED TUBE 25 mg Q12HR ELI Administration Clopidogrel Bisulfate 75 mg 09/28/19 09:00 10/01/19 10:02 Plavix FEED TUBE 75 mg DAILY ELI Administration Metformin HCl 500 mg 09/30/19 21:00 09/30/19 21:07 Glucophage Xr PO 500 mg HS ELI Administration Rivaroxaban 20 mg 09/28/19 17:00 09/30/19 18:28 Xarelto FEED TUBE 20 mg DAILY@1700 ELI Administration Labs Labs: Laboratory Results - last 24 hr 09/30/19 09/30/19 09/30/19 11:43 17:08 20:35 Sodium Potassium Chloride Carbon Dioxide BUN Creatinine Estim Creat Clear Calc Estimated GFR Glucose POC Capillary Glucose 179 H 148 H 155 H Calcium 10/01/19 10/01/19 04:46 06:48 Sodium 137 Potassium 4.3 Chloride 99 Carbon Dioxide 32 H BUN 19 Creatinine 1.00 Estim Creat Clear Calc 99 Estimated GFR > 60 Glucose 177 H POC Capillary Glucose 218 H Calcium 9.2 Progress Note: A&P Assessment and Plan (1) Left ventricular hypertrophy: Code(s): I51.7 - Cardiomegaly Status: Acute (2) Aspiration pneumonitis: Code(s): J69.0 - Pneumonitis due to inhalation of food and vomit Status: Acute (3)
[2019-10-01 14:00] VITALS: BP 118/90; PULSE 79; RESP 20; TEMP 37.1; O2SAT 93
--- NOTE | 2019-10-01 15:23 | PCPTNOTE ---
[place] was evaluated for a wheeled walker on 10/01/2019 by this physical therapist. The wheeled walker will resolve patient's mobility limitations and will be used for ADL's within the home. The patient can safely use the wheeled walker. ?The wheeled walker will resolve the patient?s mobility deficits, including safe transfers, ambulation in and out of home and ADL's. Yamile Reynolds PT
[2019-10-01 17:09] LABS: Glucose Point of Care 169 (65-105)
[2019-10-01] MEDS: RIVAROXABAN 20 MG TABLET FEED TUBE (17:59)
[2019-10-01 21:00] VITALS: PULSE 80
[2019-10-01] MEDS: ATORVASTATIN 40 MG TABLET 80 MG PO (21:00)
[2019-10-01] MEDS: metFORMIN HCL XR 500 MG TAB.SR.24H PO (21:00)
[2019-10-01 21:23] LABS: Glucose Point of Care 220 (65-105)
[2019-10-01 22:00] VITALS: BP 135/99; PULSE 83; RESP 20; TEMP 37.1; O2SAT 99
[2019-10-02] VITALS (7 sets, daily range): BP systolic 117–139; BP diastolic 63–93; PULSE 75–86; RESP 18; TEMP 36.6–37; O2SAT 97–100
[2019-10-02 06:54] LABS: Glucose Point of Care 161 (65-105)
[2019-10-02] MEDS: carvediloL 25 MG TABLET FEED TUBE ×2 (11:34→21:19)
[2019-10-02] MEDS: CLOPIDOGREL BISULFATE 75 MG TABLET FEED TUBE (11:34)
[2019-10-02 12:27] LABS: Glucose Point of Care 201 (65-105)
--- NOTE | 2019-10-02 12:39 | WPDNEURORHBP ---
Subjective Date/time seen: 10/02/19 12:39 Interval history: this 44-year-old gentleman is here with multiple strokes doing remarkably well apart from the fact that he is unable to swallow related to his brainstem stroke otherwise remains alert denies any new complaints and engage in therapy particularly denies any headache nausea vomiting chest pain shortness of breath fever chills sore throat Review of Systems Review of Systems: All systems reviewed & are unremarkable except as noted in HPI and below Functional Status Ambulation Ability Ability to Ambulate 10 Feet: Standby Assistance Ability to Ambulate 50 Feet With 2 Turns: Standby Assistance Ability to Ambulate 150 Feet: Standby Assistance Ambulation Assistive Devices: Walker, Wheeled Transfers Ability Ability to Transfer In/Out of Chair: Standby Assistance Exam Const: General: comfortable and no acute distress HENMT: General nose exam: Normal nares present Mouth: Yes moist mucous membranes Eyes: General: appearance normal, both eyes and all related structures Other: blindness in the right eye of old Neck: Neck: supple and no JVD Resp: Effort & Inspection: normal respiratory effort Auscultation: clear to auscultation bilaterally Cardio: Rate: regular rate Rhythm: regular rhythm GI: GI Palp: Yes Soft to palpation Auscultation: normal bowel sounds Skin: General skin exam: normal color and no rashes or lesions noted Neuro: Other: the patient is awake and alert well oriented in time place and person, right-sided facial weakness is improving the right-sided ataxia is improving left-sided sensory motor deficit is improving apart from dysphagia and inability to eat is the main issue Extrem: General: normal to inspection Psych: Mental Status: mental status grossly normal Objective Data Vital Signs Vital Signs: Vital Signs - 24 hr 10/01/19 14:00 10/01/19 21:00 10/01/19 22:00 Temperature 37.1 C 37.1 C Pulse Rate 79 80 83 Respiratory Rate 20 20 Blood Pressure 118/90 135/99 H Pulse Oximetry 93 99 10/02/19 06:00 10/02/19 09:32 10/02/19 11:34 Temperature 37.0 C Pulse Rate 75 86 86 Respiratory Rate 18 Blood Pressure 117/63 130/85 Pulse Oximetry 97 Intake/Output Intake/Output: Intake & Output 09/29/19 09/30/19 10/01/19 10/02/19 23:59 23:59 23:59 23:59 Intake Total 0 2130 1245 Output Total 1800 2400 Balance -1800 -270 1245 Meds/Results Medications: Active Medications Generic Name Dose Route Start Last Admin Trade Name Guicho PRN Reason Stop Dose Admin Atorvastatin Calcium 80 mg 09/27/19 21:00 10/01/19 21:00 Lipitor PO 80 mg HS ELI Administration Carvedilol 25 mg 09/27/19 21:00 10/02/19 11:34 Coreg FEED TUBE 25 mg Q12HR ELI Administration Clopidogrel Bisulfate 75 mg 09/28/19 09:00 10/02/19 11:34 Plavix FEED TUBE 75 mg DAILY ELI Administration Metformin HCl 500 mg 09/30/19 21:00 10/01/19 21:00 Glucophage Xr PO 500 mg HS ELI Administration Rivaroxaban 20 mg 09/28/19 17:00 10/01/19 17:59 Xarelto FEED TUBE 20 mg DAILY@1700 ELI Administration Labs Labs: Laboratory Results - last 24 hr 10/01/19 10/01/19 10/02/19 16:57 20:57 06:35 POC Capillary Glucose 169 H 220 H 161 H 10/02/19 12:21 POC Capillary Glucose 201 H Progress Note: A&P Assessment and Plan (1) Left ventricular hypertrophy: Code(s): I51.7 - Cardiomegaly Status: Acute (2) Dysphagia: Qualifiers: Dysphagia type: unspecified Qualified Code(s): R13.10 - Dysphagia, unspecified Code(s): R13.10 - Dysphagia, unspecified Status: Acute (3) Embolic stroke: Qualifiers: Laterality of affected vessel: bilateral Code(s): I63.9 - Cerebral infarction, unspecified Status: Acute (4) Carotid disease, bilateral: Qualifiers: Carotid artery disease type: occlusion Qualified Code(s): I65.23 - Occlusion and steno
--- NOTE | 2019-10-02 13:03 | PCDIET ---
Nutrition Follow-Up Complete: Nutrition Diagnosis: Swallowing difficulties related to dysphagia as evidenced by NPO/Dobhoff placement. Nutrition Goal: Patient to meet estimated nutritional needs Goal met. Patient tolerating Glucerna 1.2 at 85mL/hr x 18 hours/day. Receiving 30mL water flush every 4 hours. Plan for MBS tomorrow. Last recorded weight is 110.6 kg. Recommend obtaining new weight. Bowel Motility: +BM on 10/01/19. Labs Reviewed: Glu (201) Meds Noted: Glucophage Additional Notes: No documented skin breakdown. Will continue to monitor with same goal. Nutrition Monitoring and Evaluation: Will follow up every Tuesday and Tuesday.
[2019-10-02 17:19] LABS: Glucose Point of Care 182 (65-105)
[2019-10-02] MEDS: RIVAROXABAN 20 MG TABLET FEED TUBE (18:36)
[2019-10-02] MEDS: ATORVASTATIN 40 MG TABLET 80 MG PO (21:18)
[2019-10-02 21:42] LABS: Glucose Point of Care 191 (65-105)
[2019-10-03] MEDS: metFORMIN HCL XR 500 MG TAB.SR.24H PO ×2 (05:20→20:15)
[2019-10-03 06:00] VITALS: BP 127/77; PULSE 80; RESP 16; TEMP 36.3; O2SAT 99
[2019-10-03 06:43] LABS: Glucose Point of Care 166 (65-105)
[2019-10-03 08:26] VITALS: PULSE 76
[2019-10-03] MEDS: carvediloL 25 MG TABLET FEED TUBE ×2 (08:26→20:14)
[2019-10-03] MEDS: CLOPIDOGREL BISULFATE 75 MG TABLET FEED TUBE (08:26)
[2019-10-03 10:00] VITALS: PULSE 80; RESP 18
[2019-10-03 12:03] LABS: Glucose Point of Care 255 (65-105)
--- NOTE | 2019-10-03 13:27 | WPDNEURORHBP ---
Subjective Date/time seen: 10/03/19 13:27 Interval history: this 44-year-old gentleman is here after having had multiple strokes he had dysphagia for which she went through a modified barium swallow any past did and very happy and we will have the Dobbhoff tube removed he was eating the recommended diet fairly well without any choking or evidence of dysphagia overall neurological status have also improved he denies any headache nausea vomiting chest pain shortness of breath fever chills sore throat Review of Systems Review of Systems: All systems reviewed & are unremarkable except as noted in HPI and below Functional Status Ambulation Ability Ability to Ambulate 10 Feet: Standby Assistance Ability to Ambulate 50 Feet With 2 Turns: Standby Assistance Ability to Ambulate 150 Feet: Standby Assistance Ambulation Assistive Devices: Walker, Wheeled Transfers Ability Ability to Transfer In/Out of Chair: Standby Assistance Exam Const: General: comfortable and no acute distress HENMT: General nose exam: Normal nares present Mouth: Yes moist mucous membranes Eyes: General: appearance normal, both eyes and all related structures Other: corneal opacity and the blindness in the right eye along with the diabetic retinopathy in the left eye remains th Neck: Neck: supple and no JVD Resp: Effort & Inspection: normal respiratory effort Auscultation: clear to auscultation bilaterally Cardio: Rate: regular rate Rhythm: regular rhythm GI: GI Palp: Yes Soft to palpation Auscultation: normal bowel sounds Skin: General skin exam: normal color and no rashes or lesions noted Neuro: Other: patient is awake and alert well oriented right-sided facial weakness is improving and the right-sided ataxia is improving likewise the left-sided deficit is also improving Extrem: General: normal to inspection Psych: Mental Status: mental status grossly normal Objective Data Vital Signs Vital Signs: Vital Signs - 24 hr 10/02/19 14:00 10/02/19 20:30 10/02/19 21:19 Temperature 36.6 C Pulse Rate 80 82 82 Respiratory Rate 18 18 Blood Pressure 123/76 Pulse Oximetry 99 100 10/02/19 22:00 10/03/19 06:00 10/03/19 08:26 Temperature 36.9 C 36.3 C L Pulse Rate 82 80 76 Respiratory Rate 18 16 Blood Pressure 139/93 H 127/77 Pulse Oximetry 100 99 Intake/Output Intake/Output: Intake & Output 05/10/01/19 10/02/19 10/03/19 23:59 23:59 23:59 23:59 Intake Total 2130 1395 Output Total 2400 Balance -270 1395 Meds/Results Medications: Active Medications Generic Name Dose Route Start Last Admin Trade Name Freq PRN Reason Stop Dose Admin Atorvastatin Calcium 80 mg 09/27/19 21:00 10/02/19 21:18 Lipitor PO 80 mg HS ELI Administration Carvedilol 25 mg 09/27/19 21:00 10/03/19 08:26 Coreg FEED TUBE 25 mg Q12HR ELI Administration Clopidogrel Bisulfate 75 mg 09/28/19 09:00 10/03/19 08:26 Plavix FEED TUBE 75 mg DAILY ELI Administration Metformin HCl 500 mg 09/30/19 21:00 10/03/19 05:20 Glucophage Xr PO 500 mg HS ELI Administration Rivaroxaban 20 mg 09/28/19 17:00 10/02/19 18:36 Xarelto FEED TUBE 20 mg DAILY@1700 ELI Administration Sodium Chloride 1 spray 10/03/19 11:40 [place] Nasal [place] NASAL Q6HR PRN Congestion Radiology Results: ITS Impressions Modified Barium Swallow 10/03/19 12:58 IMPRESSION: Modified esophagram findings as above. Please refer to the speech therapy report for specific recommendations. Labs Labs: Laboratory Results - last 24 hr 10/02/19 10/02/19 10/03/19 17:12 21:22 06:23 POC Capillary Glucose 182 H 191 H 166 H 10/03/19 12:00 POC Capillary Glucose 255 H Progress Note: A&P Assessment and Plan (1) Left ventricular hypertrophy: Code(s): I51.7 - Cardiomegaly Status: Acute (2) Embolic stroke: Qualifiers: Laterality of affected vessel: bilateral [place]
--- NOTE | 2019-10-03 13:53 | PCSTNOTE ---
Please refer to the Modified Barium Swallow Evaluation in the EMR.
[2019-10-03 14:00] VITALS: BP 139/87; PULSE 82; RESP 18; TEMP 37.2; O2SAT 100
--- NOTE | 2019-10-03 15:34 | PC.NURSE ---
Addendum entered by Julissa Anders RN 10/03/19 15:39: Dobhoff tube secured with tape behind ear for patient comfort. Patient agreeable to plan to have Dr Donovan see him in am. Original Note: Notified by Marina Shepard RN that Dr Cam had ordered to remove Dobhoff tube as patient passed barium swallow test and would be advancing to oral diet. Staff attempted to remove Dobhoff but resistance met with attempts to remove at 6 cm berry line from left nares. Attempted to irrigate with sterile saline, attempted to turn tube, and attempted lubrication with KY jelly but still meeting resistance. Dr Cam notified. Orders for xrays obtained and completed. Dr Cam notified of xray results and is now requesting ENT consult with Dr Donovan for removal of Dobhoff. Dr Donovan notified of consult and xray results reported. He will see patient tomorrow am after reviewing xrays and attempt removal.
[2019-10-03 18:18] LABS: Glucose Point of Care 208 (65-105)
[2019-10-03] MEDS: RIVAROXABAN 20 MG TABLET FEED TUBE (18:18)
[2019-10-03 20:14] VITALS: PULSE 78
[2019-10-03] MEDS: ATORVASTATIN 40 MG TABLET 80 MG PO (20:15)
[2019-10-03 20:51] LABS: Glucose Point of Care 187 (65-105)
[2019-10-03 22:00] VITALS: BP 137/90; PULSE 80; RESP 20; TEMP 36.7; O2SAT 97
[2019-10-04 06:00] VITALS: BP 132/78; PULSE 82; RESP 20; TEMP 36.5; O2SAT 100
--- NOTE | 2019-10-04 06:44 | PC.NURSE ---
Dr Donovan here at 0620 and removed Dobhoff tube with tip intact. Patient tolerated well. No signs of bleeding noted after tube removed.
[2019-10-04 06:54] LABS: Glucose Point of Care 147 (65-105)
[2019-10-04 09:08] VITALS: PULSE 82
[2019-10-04] MEDS: carvediloL 25 MG TABLET FEED TUBE ×2 (09:08→20:54)
[2019-10-04] MEDS: CLOPIDOGREL BISULFATE 75 MG TABLET FEED TUBE (09:09)
[2019-10-04 12:59] LABS: Glucose Point of Care 237 (65-105)
[2019-10-04 14:00] VITALS: BP 132/83; PULSE 88; RESP 17; TEMP 36.9; O2SAT 99
[2019-10-04 17:18] LABS: Glucose Point of Care 150 (65-105)
[2019-10-04] MEDS: RIVAROXABAN 20 MG TABLET FEED TUBE (18:01)
[2019-10-04] MEDS: metFORMIN HCL XR 500 MG TAB.SR.24H PO (20:53)
[2019-10-04 20:54] VITALS: PULSE 76
[2019-10-04] MEDS: ATORVASTATIN 40 MG TABLET 80 MG PO (20:54)
[2019-10-04 22:00] VITALS: BP 128/89; PULSE 84; RESP 18; TEMP 36.9; O2SAT 98
[2019-10-05 03:28] LABS: Glucose Point of Care 208 (65-105)
[2019-10-05 04:57] LABS: Basophils Percent Auto 0.3 % (0.2-1.2); Eosinophils Absolute Auto 0.1 K/mm3 (0-0.3); Eosinophils Percent Auto 1.4 % (0-4.4); Hemoglobin 13.7 g/dL (14.0-18.0); Immature Granulocyte Absolute 0.01 K/mm3 (0.00-0.031); Immature Granulocyte Percent A 0.2 % (0-0.5); Lymphocytes Absolute Auto 1.99 K/mm3 (0.9-3.2); Lymphocytes Percent Auto 34.8 % (18.3-44.2); Mean Corpuscular HGB Conc 32.6 g/dl (32-36); Mean Corpuscular Hemoglobin 26.2 pg (26-34); Mean Corpuscular Volume 80.3 fl (80-100); Monocytes Absolute Auto 0.6 K/mm3 (0.1-0.6); Monocytes Percent Auto 9.8 % (2.6-8.5); Neutrophils Absolute Auto 3.1 K/mm3 (1.3-6.7); Neutrophils Percent Auto 53.5 % (45.5-73.1); Platelet Count Result 197 k/mm3 (150-375); Red Blood Count 5.23 M/mm3 (4.6-6.20); Red Cell Distribution Width 12.6 % (11.5-14.5); White Blood Count 5.7 K/mm3 (4.5-10.0)
[2019-10-05 05:11] LABS: Blood Urea Nitrogen 23 mg/dL (9-20); Calcium 9.3 mg/dL (8.4-10.2); Carbon Dioxide 30 mmol/L (22-30); Chloride 101 mmol/L (98-107); Estimated CRCL calculation 90 ml/min; Estimated Glomerular Filt Rate > 60; Glucose 137 mg/dL (75-110); Potassium 4.1 mmol/L (3.4-5.0); Sodium 136 mmol/L (137-145)
[2019-10-05 06:00] VITALS: BP 114/75; PULSE 71; RESP 18; TEMP 36.7; O2SAT 95
[2019-10-05 08:00] VITALS: PULSE 84; RESP 18
--- NOTE | 2019-10-05 09:16 | PCDIET ---
Nutrition Follow-Up Complete: Nutrition Diagnosis: Swallowing difficulties related to dysphagia as evidenced by NPO/Dobhoff Nutrition Goal: Patient to meet estimated nutritional needs Goal in progress. Diet upgraded s/p MBS and Dobhoff tube removed. Diet is minced and moist which is appropriate until intakes improved; would then add heart healthy, diabetic restrictions. Intakes consistently improving thus far with average of 60% of meals consumed since oral diet initiated. Recommend adding Glucerna Shake (220kcal, 10g protein) 1x daily for supplemental nutrition. Last recorded weight is 110.6 kg. Recommend obtaining new weight. Bowel Motility: Last documented BM on 10/01/19. Labs Reviewed: Glu (137), Na (136) Meds Noted: Glucophage Additional Notes: No documented skin breakdown. Consider adding medication for BM if/when medically appropriate. Will continue to monitor with same goal. Nutrition Monitoring and Evaluation: Follow up every 5 days.
[2019-10-05 09:58] VITALS: PULSE 68
[2019-10-05] MEDS: CLOPIDOGREL BISULFATE 75 MG TABLET FEED TUBE (09:58)
[2019-10-05] MEDS: carvediloL 25 MG TABLET FEED TUBE ×2 (09:58→20:19)
[2019-10-05 11:16] LABS: Glucose Point of Care 139 (65-105)
[2019-10-05 12:39] LABS: Glucose Point of Care 261 (65-105)
--- NOTE | 2019-10-05 13:14 | WPDNEURORHBP ---
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 his comfortable denies any headache nausea vomiting chest pain shortness of breath fever chills sore throat Review of Systems Review of Systems: All systems reviewed & are unremarkable except as noted in HPI and below Functional Status Ambulation Ability Ability to Ambulate 10 Feet: Standby Assistance Ability to Ambulate 50 Feet With 2 Turns: Standby Assistance Ability to Ambulate 150 Feet: Contact Guard Ambulation Assistive Devices: Walker, Wheeled Transfers Ability Ability to Transfer In/Out of Chair: Standby Assistance Exam Const: General: comfortable and no acute distress HENMT: General nose exam: Normal nares present Mouth: Yes moist mucous membranes Eyes: Other: blindness in the right eye stable decreased vision in the left eye related to diabetic retinopathy stable Neck: Neck: supple and no JVD Resp: Effort & Inspection: normal respiratory effort Auscultation: clear to auscultation bilaterally Cardio: Rate: regular rate Rhythm: regular rhythm GI: GI Palp: Yes Soft to palpation Auscultation: normal bowel sounds Skin: General skin exam: normal color and no rashes or lesions noted Neuro: Other: patient is awake alert well oriented the right-sided facial weakness has improved on both the surfaces bilaterally has improved and is doing, glued well Extrem: General: normal to inspection Psych: Mental Status: mental status grossly normal Objective Data Vital Signs Vital Signs: Vital Signs - 24 hr 10/04/19 14:00 10/04/19 20:54 10/04/19 22:00 Temperature 36.9 C 36.9 C Pulse Rate 88 76 84 Respiratory Rate 17 18 Blood Pressure 132/83 128/89 Pulse Oximetry 99 98 10/05/19 06:00 10/05/19 09:58 Temperature 36.7 C Pulse Rate 71 68 Respiratory Rate 18 Blood Pressure 114/75 Pulse Oximetry 95 Intake/Output Intake/Output: Intake & Output 10/02/19 10/03/19 10/04/19 10/05/19 23:59 23:59 23:59 23:59 Intake Total 1395 480 720 240 Output Total 600 Balance 1395 -120 720 240 Meds/Results Medications: Active Medications Generic Name Dose Route Start Last Admin Trade Name Freq PRN Reason Stop Dose Admin Atorvastatin Calcium 80 mg 09/27/19 21:00 10/04/19 20:54 Lipitor PO 80 mg HS ELI Administration Carvedilol 25 mg 09/27/19 21:00 10/05/19 09:58 Coreg FEED TUBE 25 mg Q12HR ELI Administration Clopidogrel Bisulfate 75 mg 09/28/19 09:00 10/05/19 09:58 Plavix FEED TUBE 75 mg DAILY ELI Administration Metformin HCl 500 mg 09/30/19 21:00 10/04/19 20:53 Glucophage Xr PO 500 mg HS ELI Administration Rivaroxaban 20 mg 09/28/19 17:00 10/04/19 18:01 Xarelto FEED TUBE 20 mg DAILY@1700 ELI Administration Sodium Chloride 1 spray 10/03/19 11:40 [place] Nasal [place] NASAL Q6HR PRN Congestion Radiology Results: ITS Impressions Modified Barium Swallow 10/03/19 12:58 IMPRESSION: Modified esophagram findings as above. Please refer to the speech therapy report for specific recommendations. Feeding Tube Manipulation 10/03/19 14:56 Impression: Dobbhoff tube in left posterior nasal cavity/nasopharynx Labs Labs: Laboratory Results - last 24 hr 10/04/19 10/04/19 10/05/19 17:16 20:51 04:31 WBC 5.7 RBC 5.23 Hgb 13.7 L Hct 42.0 MCV 80.3 MCH 26.2 MCHC 32.6 RDW 12.6 Plt Count 197 MPV 11.0 H Immature Gran % (Auto) 0.2 Neut % (Auto) 53.5 Lymph % (Auto) 34.8 [place] % (Auto) 9.8 H Eos % (Auto) 1.4 Baso % (Auto) 0.3 Lymph # (Auto) 1.99 [place] # (Auto) 0.6 Eos # (Auto) 0.1 Baso # (Auto) 0.0 Abs Immat Gran (auto) 0.01 Absolute Neuts (auto) 3.1 Absolute Nuclea
--- NOTE | 2019-10-05 13:20 | PC.NURSE ---
Dr Cam notified of occasionally light bleeding noted from left nostril, mostly observed when patient up working with therapy staff.
[2019-10-05 14:00] VITALS: BP 126/63; PULSE 84; RESP 17; TEMP 37.1; O2SAT 100
--- NOTE | 2019-10-05 15:05 | WPDNEURORHBP ---
Subjective Date/time seen: 10/05/19 15:05 Interval history: this 44-year-old gentleman is doing remarkably well after sustaining at least 1 brainstem and bilateral and bihemispheric strokes embolic in nature his now on Xarelto has some nosebleeds I suspect this is from the combination of Xarelto and the Plavix is on I will check his hemoglobin hematocrit tomorrow his planning to be discharged to doing well otherwise without any headache nausea vomiting chest pain shortness of breath fever chills or sore throat Review of Systems Review of Systems: All systems reviewed & are unremarkable except as noted in HPI and below Functional Status Ambulation Ability Ability to Ambulate 10 Feet: Standby Assistance Ability to Ambulate 50 Feet With 2 Turns: Standby Assistance Ability to Ambulate 150 Feet: Contact Guard Ambulation Assistive Devices: Walker, Wheeled Transfers Ability Ability to Transfer In/Out of Chair: Standby Assistance Exam Const: General: comfortable and no acute distress HENMT: General nose exam: Normal nares present Mouth: Yes moist mucous membranes Eyes: General: appearance normal, both eyes and all related structures Neck: Neck: supple and no JVD Resp: Effort & Inspection: normal respiratory effort Auscultation: clear to auscultation bilaterally Cardio: Rate: regular rate Rhythm: regular rhythm GI: GI Palp: Yes Soft to palpation Auscultation: normal bowel sounds Skin: General skin exam: normal color and no rashes or lesions noted Neuro: Other: patient is awake alert and well oriented in time place and person his bilateral deficit has significantly improved likewise the right-sided facial weakness has improved Extrem: General: normal to inspection Psych: Mental Status: mental status grossly normal Objective Data Vital Signs Vital Signs: Vital Signs - 24 hr 10/04/19 20:54 10/04/19 22:00 10/05/19 06:00 Temperature 36.9 C 36.7 C Pulse Rate 76 84 71 Respiratory Rate 18 18 Blood Pressure 128/89 114/75 Pulse Oximetry 98 95 10/05/19 09:58 Temperature Pulse Rate 68 Respiratory Rate Blood Pressure Pulse Oximetry Intake/Output Intake/Output: Intake & Output 10/02/19 10/03/19 10/04/19 10/05/19 23:59 23:59 23:59 23:59 Intake Total 1395 480 720 660 Output Total 600 Balance 1395 -120 720 660 Meds/Results Medications: Active Medications Generic Name Dose Route Start Last Admin Trade Name Freq PRN Reason Stop Dose Admin Atorvastatin Calcium 80 mg 09/27/19 21:00 10/04/19 20:54 Lipitor PO 80 mg HS ELI Administration Carvedilol 25 mg 09/27/19 21:00 10/05/19 09:58 Coreg FEED TUBE 25 mg Q12HR ELI Administration Clopidogrel Bisulfate 75 mg 09/28/19 09:00 10/05/19 09:58 Plavix FEED TUBE 75 mg DAILY ELI Administration Metformin HCl 500 mg 09/30/19 21:00 10/04/19 20:53 Glucophage Xr PO 500 mg HS ELI Administration Oxymetazoline HCl 1 spray 10/05/19 13:19 [place] Nasal NASAL 10/08/19 09:01 Q12HR PRN Congestion Rivaroxaban 20 mg 09/28/19 17:00 10/04/19 18:01 Xarelto FEED TUBE 20 mg DAILY@1700 ELI Administration Sodium Chloride 1 spray 10/03/19 11:40 [place] Nasal [place] NASAL Q6HR PRN Congestion Radiology Results: ITS Impressions Modified Barium Swallow 10/03/19 12:58 IMPRESSION: Modified esophagram findings as above. Please refer to the speech therapy report for specific recommendations. Feeding Tube Manipulation 10/03/19 14:56 Impression: Dobbhoff tube in left posterior nasal cavity/nasopharynx Labs Labs: Laboratory Results - last 24 hr 10/04/19 10/04/19 10/05/19 17:16 20:51 04:31 WBC 5.7 RBC 5.23 Hgb 13.7 L Hct 42.0 MCV 80.3 MCH 26.2 MCHC 32.6 RDW 12.6 Plt Count 197 MPV 11.0 H Immature Gran % (Auto) 0.2 Neut % (Auto) 53.5 Lymph % (Auto) 34.8 [place] % (Auto) 9.8 H Eos % (Auto) 1.4
[2019-10-05 16:47] LABS: Hematocrit 42.8 % (42.0-52.0); Hemoglobin 13.9 g/dL (14.0-18.0); Mean Corpuscular HGB Conc 32.5 g/dl (32-36); Mean Corpuscular Hemoglobin 26.6 pg (26-34); Mean Corpuscular Volume 81.8 fl (80-100); Mean Platelet Volume 11.6 fl (7.4-10.4); Platelet Count Result 202 k/mm3 (150-375); Red Blood Count 5.23 M/mm3 (4.6-6.20); Red Cell Distribution Width 12.9 % (11.5-14.5); White Blood Count 5.9 K/mm3 (4.5-10.0)
[2019-10-05 17:11] LABS: Glucose Point of Care 165 (65-105)
[2019-10-05] MEDS: RIVAROXABAN 20 MG TABLET FEED TUBE (17:37)
[2019-10-05] MEDS: OXYMETAZOLINE HCL 0.05% NAS 15 ML BTL (*BKC) 1 SPRAY NASAL (17:37)
[2019-10-05 20:14] LABS: Glucose Point of Care 314 (65-105)
[2019-10-05 20:19] VITALS: PULSE 84
[2019-10-05] MEDS: metFORMIN HCL XR 500 MG TAB.SR.24H PO (20:19)
[2019-10-05] MEDS: ATORVASTATIN 40 MG TABLET 80 MG PO (20:19)
[2019-10-05 22:00] VITALS: BP 129/92; PULSE 83; RESP 20; TEMP 37.2; O2SAT 98
[2019-10-06 05:14] LABS: Hematocrit 42.6 % (42.0-52.0); Hemoglobin 13.8 g/dL (14.0-18.0); Mean Corpuscular HGB Conc 32.4 g/dl (32-36); Mean Corpuscular Hemoglobin 26.6 pg (26-34); Mean Corpuscular Volume 82.1 fl (80-100); Platelet Count Result 185 k/mm3 (150-375); Red Blood Count 5.19 M/mm3 (4.6-6.20); Red Cell Distribution Width 12.8 % (11.5-14.5); White Blood Count 5.5 K/mm3 (4.5-10.0)
[2019-10-06 06:00] VITALS: BP 120/72; PULSE 85; RESP 20; TEMP 36.9; O2SAT 96
[2019-10-06 06:50] LABS: Glucose Point of Care 188 (65-105)
[2019-10-06 09:09] VITALS: PULSE 85
[2019-10-06] MEDS: carvediloL 25 MG TABLET FEED TUBE ×2 (09:09→20:11)
[2019-10-06] MEDS: CLOPIDOGREL BISULFATE 75 MG TABLET FEED TUBE (09:09)
[2019-10-06 11:45] LABS: Glucose Point of Care 225 (65-105)
--- NOTE | 2019-10-06 11:45 | WPDNEURORHBP ---
Subjective Date/time seen: S/Pmultiple strokes with some nose bleed secondary to antiplatlets/ anti [id number]/23/20 11:45 Review of Systems Review of Systems: All systems reviewed & are unremarkable except as noted in HPI and below Functional Status Ambulation Ability Ability to Ambulate 10 Feet: Standby Assistance Ability to Ambulate 50 Feet With 2 Turns: Standby Assistance Ability to Ambulate 150 Feet: Contact Guard Ambulation Assistive Devices: Cane, Small Base Quad and Walker, Wheeled Transfers Ability Ability to Transfer In/Out of Chair: Standby Assistance Exam Const: General: cooperative, healthy appearing, comfortable, no acute distress, well developed, alert, awake and Physically active Nutritional Appearance: obese Orientation/consciousness: patient oriented x3 Other: right eye functions HENMT: Ears: hearing grossly normal bilaterally General nose exam: Normal external nose present Face and sinus: normal facial exam Mouth: Yes Normal oral and palatal mucosa present Eyes: Visual Broussard: normal visual broussard by confrontation (left eye) Alignment and Position: alignment abnormal Eyelids: eyelid abnormality (right eye) Pupils: Equal, round and reactive pupils present (left side) Direct Ophthalmoscopy: normal light reflex (left side) Neck: Neck: full ROM Resp: Effort & Inspection: normal respiratory effort and able to speak in complete sentences Auscultation: clear to auscultation bilaterally Cardio: Rhythm: abnormal rhythm GI: Auscultation: normal bowel sounds Skin: General skin exam: no rashes or lesions noted Neuro: General: patient oriented x3 Speech: normal speech Motor exam (neuro): 5/5 motor strength present throughout (improving) Psych: Appearance: grossly normal Speech and movement: Normal speech and movement present Affect: normal affect Attitude: cooperative Thought process: Normal thought process present Thought content: Yes Normal thought content present Insight: Good insight present (Psych) Judgement: Good judgement present (Psych) Objective Data Vital Signs Vital Signs: Vital Signs - 24 hr 10/05/19 14:00 10/05/19 20:19 10/05/19 22:00 Temperature 37.1 C 37.2 C Pulse Rate 84 84 83 Respiratory Rate 17 20 Blood Pressure 126/63 129/92 H Pulse Oximetry 100 98 10/06/19 06:00 10/06/19 09:09 Temperature 36.9 C Pulse Rate 85 85 Respiratory Rate 20 Blood Pressure 120/72 Pulse Oximetry 96 Intake/Output Intake/Output: Intake & Output 10/03/19 10/04/19 10/05/19 10/06/19 23:59 23:59 23:59 23:59 Intake Total 480 720 900 120 Output Total 600 Balance -120 720 900 120 Meds/Results Medications: Active Medications Generic Name Dose Route Start Last Admin Trade Name Freq PRN Reason Stop Dose Admin Atorvastatin Calcium 80 mg 09/27/19 21:00 10/05/19 20:19 Lipitor PO 80 mg HS ELI Administration Carvedilol 25 mg 09/27/19 21:00 10/06/19 09:09 Coreg FEED TUBE 25 mg Q12HR ELI Administration Clopidogrel Bisulfate 75 mg 09/28/19 09:00 10/06/19 09:09 Plavix FEED TUBE 75 mg DAILY ELI Administration Metformin HCl 500 mg 09/30/19 21:00 10/05/19 20:19 Glucophage Xr PO 500 mg HS ELI Administration Oxymetazoline HCl 1 spray 10/05/19 13:19 10/05/19 17:37 Afrin Nasal NASAL 10/08/19 09:01 1 spray Q12HR PRN Administration Congestion Rivaroxaban 20 mg 09/28/19 17:00 10/05/19 17:37 Xarelto FEED TUBE 20 mg DAILY@1700 ELI Administration Sodium Chloride 1 spray 10/03/19 11:40 [place] Nasal [place] NASAL Q6HR PRN Congestion Radiology Results: ITS Impressions Modified Barium Swallow 10/03/19 12:58 IMPRESSION: Modified esophagram findings as above. Please refer to the speech therapy report for specific recommendations. Feeding Tube Manipulation 10/03/19 14:56 Impression: Dobbhoff tube in left posterior nasal cavity/nasopharynx Labs Labs: Laboratory Results - last
[2019-10-06] MEDS: metFORMIN HCL XR 500 MG TAB.SR.24H PO ×2 (12:27→20:11)
[2019-10-06] MEDS: OXYMETAZOLINE HCL 0.05% NAS 15 ML BTL (*BKC) 1 SPRAY NASAL (12:27)
[2019-10-06 14:00] VITALS: BP 139/87; PULSE 83; RESP 18; TEMP 36.7; O2SAT 99
[2019-10-06 17:11] LABS: Glucose Point of Care 211 (65-105)
[2019-10-06] MEDS: RIVAROXABAN 20 MG TABLET FEED TUBE (18:18)
[2019-10-06 20:11] VITALS: PULSE 88
[2019-10-06] MEDS: ATORVASTATIN 40 MG TABLET 80 MG PO (20:12)
[2019-10-06 20:48] LABS: Glucose Point of Care 218 (65-105)
[2019-10-06 21:28] VITALS: BP 140/81; PULSE 87; RESP 18; TEMP 37.1; O2SAT 100
[2019-10-07 06:00] VITALS: BP 126/69; PULSE 77; RESP 18; TEMP 36.3; O2SAT 96
[2019-10-07 06:59] LABS: Glucose Point of Care 169 (65-105)
[2019-10-07 08:00] VITALS: PULSE 77; RESP 18; O2SAT 96
[2019-10-07 09:46] VITALS: PULSE 77
[2019-10-07] MEDS: CLOPIDOGREL BISULFATE 75 MG TABLET FEED TUBE (09:46)
[2019-10-07] MEDS: carvediloL 25 MG TABLET FEED TUBE ×2 (09:46→21:03)
[2019-10-07] MEDS: metFORMIN HCL XR 500 MG TAB.SR.24H PO ×2 (09:47→21:02)
[2019-10-07 12:28] LABS: Glucose Point of Care 204 (65-105)
[2019-10-07 14:00] VITALS: BP 127/83; PULSE 84; RESP 22; TEMP 36.9; O2SAT 100
[2019-10-07 17:07] LABS: Glucose Point of Care 173 (65-105)
[2019-10-07] MEDS: RIVAROXABAN 20 MG TABLET FEED TUBE (17:26)
[2019-10-07 20:55] VITALS: BP 147/85; PULSE 82; RESP 20; TEMP 37; O2SAT 100
[2019-10-07] MEDS: ATORVASTATIN 40 MG TABLET 80 MG PO (21:02)
[2019-10-07 21:03] VITALS: PULSE 78
[2019-10-07 21:41] LABS: Glucose Point of Care 156 (65-105)
[2019-10-08 06:00] VITALS: BP 126/80; PULSE 81; RESP 20; TEMP 37.1; O2SAT 99
[2019-10-08 06:48] LABS: Glucose Point of Care 109 (65-105)
[2019-10-08 07:59] VITALS: PULSE 81
[2019-10-08] MEDS: CLOPIDOGREL BISULFATE 75 MG TABLET FEED TUBE (07:59)
[2019-10-08] MEDS: metFORMIN HCL XR 500 MG TAB.SR.24H PO (07:59)
[2019-10-08] MEDS: carvediloL 25 MG TABLET FEED TUBE (07:59)
--- NOTE | 2019-10-12 10:31 | DS_ITS ---
DATE OF DISCHARGE: 10/08/2019 DISCHARGE ACUTE REHAB DIAGNOSIS: Primary rehab impairment category of a stroke with etiological diagnosis of bihemispheric embolic stroke superimposed with brainstem stroke. DISCHARGE ACTIVE COMORBID CONDITIONS: 1. Hypertension. 2. Diabetes mellitus. 3. Blindness in the right eye. REASON FOR ADMISSION: A 44-year-old right-handed male with history of uncontrolled hypertension, diabetes mellitus, and three previous strokes in August, was originally admitted to the rehab on 09/17/2019, with acute infarct in the right cerebellar hemisphere and the PICA distribution and a punctate focus in the right dorsal leo. During the stay on the [facility], he continued to have increasing difficulties with the swallowing and increasing weakness. Modified barium swallow documented moderate. Anteriorly, creating premature spillage. Posteriorly, oral transit time was delayed and [id number] aspiration on trial with thin liquids. He was started on nonoral feeding and had a Dobhoff placed while at [facility] with the feeding. On 09/22/2019, MRI documented moderate-size right cerebellar pontis and leo subacute and strokes which were previously noted already with also approximately a dozen of scattered periventricular acute infarction, most likely embolic in nature. Cardiologists were consulted for the further monitoring with the possibility of atrial fibrillation and embolic strokes. He was transferred to IMU on 09/23/2019 and started on IV heparin for anticoagulation. His chest x-ray documented patchy infiltrate and atelectasis in the lower lung zone and possible aspiration pneumonia. He was placed on IV Zosyn. STEPHON was completed. Telemetry documented sinus rhythm. Repeat modified barium swallow completed on September 25, documented some moderately severe dysphagia with moderate amount of degree of pharyngeal residuals overall and GI weakness. He continued to have Dobhoff feeding with the hope that he will return to the oral intake in 10-14 days. He continued to have dysarthria, dysphagia, and ataxia. He was discharged to the rehab on Xarelto, Plavix, and aspirin. LEVEL OF FUNCTION AT THE TIME OF ADMISSION: The patient was noted to be weak, unable to eat, requiring supervision for oral hygiene, setup for toileting, partial assistance for bathing, setup for upper body dressing, partial assistance for lower body dressing, set up for the footwear, rolling in bed, sit to lying. He was independent lying to sitting, required partial assistance for sit to stand, chair transfer, toilet transfer, walking 10 feet and 50 feet with 2 turns. He required supervision for car transfer. He was unable to walk 150 feet. He required partial assistance for 10 feet on uneven surfaces, curb or step, 4 steps and was unable to take 12 steps. He required supervision for picking up the object. He was independent in wheelchair for 50 feet and 150 feet. ANTICIPATED REHAB GOALS: At the time of admission were to make him independent in all the modalities. LEVEL OF FUNCTION AT THE TIME OF DISCHARGE: He became independent eating and oral hygiene, required setup for toileting, supervision for bathing, setup for the upper body dressing, lower body dressing, became independent in footwear, rolling in bed, sit to lying, lying to sit, sit to stand, required supervision for chair transfer, toilet transfer, car transfer, walking 10 feet, 50 feet with 2 turns, 150 feet, curb or step, 4 steps and 12 steps. He became independent in picking up object and taking the wheelchair up to 150 feet. HOSPITAL COURSE: During the hospitalization, he was involved in the physical therapy and occupational therapy on a regular basis. He was discharged from the medical floor previous to this admission. During this hospitalization, no other consultants were inv
--- NOTE | 2019-11-01 06:23 | P.CONS_ITS ---
HPI Data of Consult Date/Time: 11/01/19 06:23 Requesting Physician: Kyle Landers MD Primary Care Provider: Adan Hugo, Consult Narrative Narrative: [place] is a 44 year old male who had a Dobbhoff tube placed in the nurses on the floor could not remove it I saw the patient and remove the Dobbhoff tube PMFSH Past Medical History Medical History Blindness Carotid disease, bilateral Diabetes mellitus with neuropathy Hypertension Left ventricular hypertrophy Family History Family History Father Cerebrovascular accident Mother Diabetes mellitus Other Congestive heart failure Social History Social History Social History: Previously worked in [employer]. Has a girlfriend and 2 children who are mostly grown. Smoking status: Former smoker Alcohol intake: current Drinks per week: 2 Substance use: never Substance use type: does not use Gender identity (if verbalized by the patient): Male Spiritual care concerns: No Agree to blood products: Yes Meds Home Medications and Allergies Home Medications Medication Instructions Recorded Confirmed Type atorvastatin 80 mg PO HS #30 tablet 10/05/19 09/27/19 Rx carvedilol 25 mg PO BID #60 tablet 10/05/19 Rx clopidogrel [Plavix] 75 mg PO DAILY #30 tablet 10/05/19 Rx metformin [Glucophage XR] 500 mg PO HS #30 tablet 10/05/19 Rx oxymetazoline [Nasal Decongestant 1 spray INTRANASAL Q12HR PRN #1 10/05/19 Rx (oxymetazl)] vial rivaroxaban [Xarelto] 20 mg FEEDING TUBE DAILY@1700 #30 10/05/19 Rx tablet sodium chloride [Saline Mist] 1 spray INTRANASAL Q6HR PRN #0 ml 10/05/19 Rx Allergies Allergy/AdvReac Type Severity Reaction Status Date / Time No Known Allergies Allergy Verified 09/23/19 08:05 Results Labs CBC & Chem 7: 10/06/19 04:41 10/05/19 04:31
== END 2019-10-08 11:20 | disposition home health service (06) | DRG 57 ==
PROVIDERS: Admitting Provider Psychiatry & Neurology Neurology; PCP Family Medicine; Visit Provider Psychiatry & Neurology Neurology
DX: I69.354 Hemiplegia and hemiparesis following cerebral infarction affecting left non-dominant side (principal); I69.391 Dysphagia following cerebral infarction; R13.10 Dysphagia, unspecified; I69.322 Dysarthria following cerebral infarction; I69.392 Facial weakness following cerebral infarction; E11.42 Type 2 diabetes mellitus with diabetic polyneuropathy; E11.319 Type 2 diabetes mellitus with unspecified diabetic retinopathy without macular edema; E11.65 Type 2 diabetes mellitus with hyperglycemia; H54.7 Unspecified visual loss; I11.9 Hypertensive heart disease without heart failure; I65.23 Occlusion and stenosis of bilateral carotid arteries; Z79.84 Long term (current) use of oral hypoglycemic drugs; Z97.8 Presence of other specified devices; Z79.02 Long term (current) use of antithrombotics/antiplatelets; Z79.01 Long term (current) use of anticoagulants; Z79.82 Long term (current) use of aspirin
CPT/HCPCS: 36415; 43761; 80048; 85025; 85027; 92507; 92522; 92526; 92610; 92611; 97110; 97116; 97162; 97166; 97530; 97535; A9270